=== PATIENT | female | born 1995 | race Caucasian/White ===

== ENCOUNTER → 2024-06-17 | Outpatient (CLI) | payer SELFPAY ==
[2024-06-17 12:12] LABS: Absolute Lymphocyte Count 1.63 X10^3/uL (0.83-4.51); Absolute Neutrophil Count 6.9 X10^3/uL (2.0-7.7); Basophil# 0.04 X10^3/uL; Basophil% 0.4 % (0-1); Eosinophil# 0.15 X10^3/uL; Eosinophils% 1.6 % (0-5); Hematocrit 35.6 % (37-47); Hemoglobin 11.5 g/dL (12.0-15.0); Lymphocyte # 1.63 X10^3/ul (0.83-4.51); Lymphocyte % 17.5 % (19-41); Mean Corp Hgb Conc 32.3 g/dL (32-36); Mean Corpuscular Hgb 29.3 pg (27.0-32.0); Mean Corpuscular Volume 90.8 fL (81-99); Mean Platelet Vol. 10.1 fl (6.2-12.0); Monocyte# 0.63 X10^3/uL; Monocyte% 6.8 % (0-10); NRBC Flagged by Analyzer 0 % (0-5); Neutrophil # 6.85 X10^3/uL (2.7-7.7); Neutrophil % 73.5 % (47-70); Platelet Count 231 K/mm3 (150-450); RBC Distribution Width SD 46.3 fl (35.1-43.9); Red Blood Count 3.92 M/mm3 (4.2-5.4); White Blood Count 9.3 K/mm3 (4.4-11.0)
[2024-06-17 13:45] LABS: HIV - WCH Non-Reactive (Nonreactive); Hepatitis B Surface Antigen Non-Reactive (Nonreactive); Hepatitis C Antibody Non-Reactive (Nonreactive); Rubella IgG Non-Reactive (Nonreactive); Syphilis Antibodies Non-reactive
[2024-06-18 20:07] LABS: Chlamydia By Nucleic Acid AMP Negative (Negative); Gonococcus By Nucleic Acid AMP Negative (Negative)
== END | disposition home or self-care (01) ==
LOC: BWCLAB 11:07
PROVIDERS: Referring Provider Obstetrics & Gynecology; Visit Provider Obstetrics & Gynecology
DX: Z34.00 Encounter for supervision of normal first pregnancy, unspecified trimester (principal)
CPT/HCPCS: 36415; 85025; 86703; 86762; 86780; 86803; 86850; 86900; 86901; 87086; 87340; 87491; 87591; 88175; G0145

== ENCOUNTER → 2024-08-23 | Outpatient (CLI) | payer SELFPAY ==
--- NOTE | 2024-08-23 15:24 | US_ITS ---
PROCEDURE: ultrasound. REASON FOR EXAM: Anatomy scan COMPARISON: None available. FINDINGS Single live intrauterine gestation in transverse lie. The max vertical amniotic fluid pocket is 5.7 cm. heart rate 155 beats per minute. Cervical length is 3.9 cm, closed. The placenta is posterior. No retroplacental fluid collection or gross evidence of placenta previa. No gross anomalies are demonstrated. Biparietal diameter 4.5 cm. Head circumference 17.3 cm. Abdominal circumference 15.5 cm. Femur length 3.3 cm. Estimated weight 351 g +/minus sign 93 g, at the 43rd percentile. Facial features appear intact. There appears to be a four-chamber heart. cord insertion unremarkable. There appears to be a three-vessel cord. Spine and extremities grossly unremarkable. US/OB Anatomy w/ Transvaginal IMPRESSION: Single live intrauterine gestation in transverse lie. Estimated gestational ag e is 20 weeks, 3 days. Estimated date of confinement 01/07/2025. No gross anomalies. Normal-appearing amniotic fluid level. Posterior placenta. Reading Location: [id number]
== END | disposition home or self-care (01) ==
PROVIDERS: Referring Provider Advanced Practice Midwife; Visit Provider Advanced Practice Midwife
DX: Z34.00 Encounter for supervision of normal first pregnancy, unspecified trimester (principal)
CPT/HCPCS: 76805; 76817

== ENCOUNTER → 2024-10-11 | Outpatient (CLI) | payer SELFPAY ==
[2024-10-11 16:17] LABS: Absolute Lymphocyte Count 1.21 X10^3/uL (0.83-4.51); Absolute Neutrophil Count 6.3 X10^3/uL (2.0-7.7); Basophil# 0.02 X10^3/uL; Basophil% 0.2 % (0-1); Eosinophil# 0.06 X10^3/uL; Eosinophils% 0.7 % (0-5); Hematocrit 31.9 % (37-47); Lymphocyte # 1.21 X10^3/ul (0.83-4.51); Lymphocyte % 14.9 % (19-41); Mean Corp Hgb Conc 34.5 g/dL (32-36); Mean Corpuscular Hgb 31.5 pg (27.0-32.0); Mean Corpuscular Volume 91.4 fL (81-99); Mean Platelet Vol. 10.2 fl (6.2-12.0); Monocyte# 0.53 X10^3/uL; Monocyte% 6.5 % (0-10); NRBC Flagged by Analyzer 0 % (0-5); Neutrophil # 6.28 X10^3/uL (2.7-7.7); Neutrophil % 77.3 % (47-70); Platelet Count 210 K/mm3 (150-450); RBC Distribution Width CV 13.3 % (11.6-14.6); RBC Distribution Width SD 44.2 fl (35.1-43.9); Red Blood Count 3.49 M/mm3 (4.2-5.4); White Blood Count 8.1 K/mm3 (4.4-11.0)
[2024-10-11 17:05] LABS: Glucose Challenge Gest 1H 50g 123 mg/dL (70-140); HIV Nonreactive (Nonreactive)
[2024-10-11 17:55] LABS: Syphilis Antibodies Nonreactive (Nonreactive)
== END | disposition home or self-care (01) ==
PROVIDERS: Nurse Practitioner Women's Health; Referring Provider Advanced Practice Midwife; Visit Provider Advanced Practice Midwife
DX: O09.891 Supervision of other high risk pregnancies, first trimester (principal); Z28.39 Other underimmunization status; Z13.1 Encounter for screening for diabetes mellitus; Z3A.00 Weeks of gestation of pregnancy not specified
CPT/HCPCS: 36415; 82950; 85025; 86703; 86780; 86787

== ENCOUNTER → 2024-12-20 | Outpatient (CLI) | payer SELFPAY ==
[2024-12-20 15:36] LABS: ROM Internal Control Test YES-OK TO RESULT pt. (Internal QC); ROM Patient Test Negative (Negative); Record Kit Lot#, ROM+ K3358
== END | disposition home or self-care (01) ==
LOC: LABSPEC 15:07
PROVIDERS: Referring Provider Registered Nurse; Visit Provider Registered Nurse
DX: O26.899 Other specified pregnancy related conditions, unspecified trimester (principal); N89.8 Other specified noninflammatory disorders of vagina; Z3A.00 Weeks of gestation of pregnancy not specified
CPT/HCPCS: 84112; 87081

== ENCOUNTER 2024-12-29 17:58 | Inpatient (IN) | payer SELFPAY ==
[2024-12-29] VITALS (13 sets, daily range): BP systolic 102–129; BP diastolic 64–83; PULSE 56–122; RESP 15–18; TEMP 36.3–37.2; O2SAT 97–100; BMI 27.9
--- OUTSIDE RECORDS SUMMARY | 2024-12-29 17:37 | XMS RPT_ITS | CCD ---
Author Organization [facility]ini[facility] Care Team Providers Care Budget Analyst Name Role Phone Kya Stapleton CNM Attending Provider Dr. Evelia Catalan MD Attending Provider [phone] Kya Stapleton CNM Referring Provider [phone] Care Physician, No Primary Primary Care Provider Unavailable Care Physician, No Primary Referring Provider Un available Sheryl Hook Attending Provider [phone] Kya Stapleton CNM Attending Provider [phone] Dr. Evelia Catalan MD Attending Provider [phone] Dr. Ellie Rodríguez DO Attending Provider Jill Sethi CNM Attending Provider [phone] Kya Stapleton CNM Attending Provider [phone] Care Physician, No Primary Primary Care Provider Unavailable Kya Stapleton CNM Referring Provider Jill Sethi CNM Referring Provider Care Physician, No Primary Primary Care Unava ilable Sheryl Kern NP Attending Unavailable Care Physician, No Primary Referring Unava ilable Jill Sethi Attending Unavailable Jill Sethi Referring Unavailable Care Physician, No Primary Primary Care Unava ilable Ellie Rodríguez Attending UnavailEllie Iyer Referring Unavailabl e Care Physician, No Primary Primary Care Unava ilable yKa Stapleton Attending Unavailable Kya Stapleton Referring Unavailable Care Physician, No Primary Primary Care Unava ilable Kya Stapleton Referring Unavailable Kya Stapleton Attending Unavailable Ellie Rodríguez Attending Unavailabl e Care Physician, No Primary Referring Unava ilable Care Physician, No Primary Primary Care Unava ilable Kya Stapleton Attending Unavailable Care Physician, No Primary Referring Unava ilable Care Physician, No Primary Primary Care Unava ilable Jill Sethi Attending Unavailable Care Physician, No Primary Referring Unava ilable Care Physician, No Primary Primary Care Unava ilable Sheryl Kern NP Attending Unavailable Care Physician, No Primary Referring Unava ilable Care Physician, No Primary Primary Care Unava ilable Ellie Rodríguez Att[facility]leton Attending Unavailable Evelia Catalan Attending Unavailable Care Physician, No Primary Referring Unava ilable Care Physician, No Primary Primary Care Unava ilable Evelia Catalan Attending Unavailable Care Physician, No Primary Primary Care Unava ilable Kya Stapleton Attending Unavailable Care Physician, No Primary Referring Unava ilable Medications Current Medications Medication Drug Class(es) Dates Sig (Normalized) Sig (Original) Mv-Mins 74-Ojve-Eczce No.1-Dha (Pnv-Worthington) 28-1-300 mg capsule (4 sources) Start: 06-07-2024 Mv-Mins 38-Jkrh-Avzsc No.1-Dha (Pnv-[place]) 28-1-300 mg capsule Active NMA PO June 07, 2024 1:00am Problems Active Problems Problem Classification Problem Date Documented Date Episodic/Chronic Other complications of (20 sources) Rubella non-immune; Translations: [Supervision of other high risk pregnancies, unspecified trimester] 10-11-2024 Episodic Comment on above: offer mmr pp Other complications of (14 sources) Varicella non-immune; Translations: [Supervision of other high risk pregnancies, unspecified trimester] 10-14-2024 Episodic Comment on above: Lab indicates immuni ty Other complications of (1 source) Other specified related conditions, unspecified trimester; Translations: [Other specified related conditions, unspecified trimester] Onset: 12-26-2024 Episodic Other complications of (1 source) Supervision of other high risk pregnancies, unspecified trimester; Translations: [Supervision of other high risk pregnancies, unspecified trimester] Onset: 12-20-2024 Episodic Other and delivery including normal (20 sources) Normal ; Translations: [Encounter for supervision of normal first , unspecified trimester] Onset: 06-17-2024 10-11-2024 Episodic Comment on above: PRR, , GAMAL , Jewish declined NIPT & Prince ier testing, afp declined. normal anatomy PRR, , GAMAL , boy Jewish gbs neg. declined NI PT & Carrier testing, afp declined. normal anatomy Residual codes; unclassified (6 sources) Infertile 07-22-2024 Episodic Residual codes; unclassified (1 source) 37 weeks gestation of ; Translations: [37 weeks gestation of ] Onset: 12-20-2024 Episodic Residual codes; unclassified (1 source) 35 weeks gestation of ; Translations: [35 weeks gestation of ] Onset: 12-06-2024 Episodic Residual codes; unclassified (1 source) 31 weeks gestation of ; Translations: [31 weeks gestation of ] Onset: 11-11-2024 Episodic Unclassified (1 source) Other underimmunization status; Translations: [Other underimmunization status] Onset: 12-20-2024 Past or Other Problems Problem Classification Problem Date Documented Da te Episodic/Chronic Residual codes; unclassified (1 source) 23 weeks gestation of ; Translations: [23 weeks gestation of ] Onset: 09-13-2024 Episodic Residual codes; unclassified (1 source) 19 weeks gestation of ; Translations: [19 weeks gestation of ] Onset: 08-16-2024 Episodic Residual codes; unclassified (1 source) 15 weeks gestation of ; Translations: [15 weeks gestation of ] Onset: 07-22-2024 Episodic Results Test Name Value Interpretation Reference Range Facility Setter Machine Office Visit Reporton 12-26-2024 Setter Machine Office Visit Report [facility] [address], [address] [place] [address] OFFICE VISIT Date of Service: 12/26/24 MR#: [id number] Acct: [id number] Name: CALLUM CABALLERO Rep #: [id number] : 1995 Provider: AJIT guerra Age/Sex: 29/F [place] [facility] [place]: [place] Intake Vital Signs 07/22/24 08:44 12/20/24 13:52 12/26/24 12:50 Height 5 ft 6 in 5 ft 6 in 5 ft 6 in Weight: 175 lb 4 oz BMI 28.3 BP 120/78 Intake Visit Reasons: 38 WK OB Chief Complaint: 38 Week OB Detonator Maker Required: No Is patient in pain?: No Allergies No Known Allergies Allergy (Verified 12/26/24 12:50) Medications ???Medication ???Instructions ???Recorded ???Confirmed ???Type multivit-min no.71-iron fum 28 cap PO 06/07/24 12/26/24 History mg-folate no.1 1 mg-dha 300 mg capsule (PNV-Worthing[place]) Last Menstrual Period: 04/02/24 Zika: Zika virus screening: Negative : No PFSH PFSH Family History Aunt Cancer Maternal- not sure what kind Grandfather Cancer Paternal- prostate Colon cancer Paternal Uncle Diabetes Paternal Mother Family history of recurrent miscarriage Social History adopted: No household members: spouse 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 history of recent travel: Yes ( -April) out of state: No out of country: Yes sexually active: Yes Smoking Status: Never smoker alcohol intake: current alcohol intake frequency: holidays/special occasions only details: Not while substance use type: does not use well-balanced diet: daily or most days caffeine: No eating out: rarely or never during the past year weight has: remained stable what type of physical activity do you participate in: none jacob/confucianism: Jewish seatbelt use: always do you feel safe at home: Yes 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 OB Visit GAMAL Calculator Estimated Delivery Date Method Current WG Current Estimate 01/07/25 LMP (Certain) 38w 2d Other Estimates 01/06/25 Ultrasound #1 38w 3d Expected Delivery Route/Plan Labor Preferences- CB/BF classes: encouraged labor support person: Jewish labor intervention preferences: [] pain management options preferred: limited cut cord/dad catch: maybe : yes PP control planned: discussed discussed possible routes of delivery and associated risks: [] special requests: [] Specific Issue/Plans Covid status: [] Flu vaccine: [] Tdap vaccine: decline Rhogam: na LARC form signed: yes Problem list reviewed and updated with the most current plan of care details and appropriate orders placed. Relevant counseling for the gestational age provided. Continue routine care and follow up unless otherwise noted in visit notes/problem list details Initial Weight: 145 lb Date -???-???-???-???-???- ???-???-???-???-???-? ??-???- EGA Weight BP Urine Prot -???-???-???-???-???- ???-???-???-???-???-? ??-???- Glucose FHR FuHt Pres Dilation -???-???-???-???-???- ???-???-???-???-???-? ??-???- Effaced St Visit Note 06/17/24 -???-???-???-???-???- ???-???-???-???-???-? ??-???- 10w 6d 152 lb 8 oz (+7 lb 8 oz) 125/65 -???-???-???-???-???- ???-???-???-???-???-? ??-???- 168 -???-???-???-???-???- ???-???-???-???-???-? ??-???- JV- CRL maurice ures just under 4cm and consistent with LMP. They are undecided about NIPT but will do first trimester labs today. 07/22/24 -???-???-???-???-???- ???-???-???-???-???-? ??-???- 15w 6d 156 lb (+11 lb) 108/57 Negative -???-???-???-???-???- ???-???-???-???-???-? ??-???- Negative 160 -???-???-???-???-???- ???-???-???-???-???-? ??-???- KW-no vb/craft recruiter mping. no concerns US ordered. 08/16/24 -???-???-???-???-???- ???-???-???-???-???-? ??-???- 19w 3d 158 lb 4 oz (+13 lb 4 oz) 107/64 Negative -???-???-???-???-???- ???-???-???-???-???-? ??-???- Negative 145 -???-???-???-???-???- ???-???-???-???-???-? ??-???- SM- n ovb cr maping aswered questions about anatomy scan and is fine with proceeding. 09/13/24 -???-???-???-???-???- ???-???-???-???-???-? ??-???- 23w 3d 166 lb (+21 lb) 114/69 Negative -???-???-???-???-???- ???-???-???-???-???-? ??-???- Negative 140 -???-???-???-???-???- ???-???-???-???-???-? ??-???- KW- no vb/cr amping. good fm. CBE classes discussed. 28 w (more content not included)... Normal [facility] Rule out Beta Strep (Grp. B) on 12-22-2024 YAMINI Group B Beta Streptococcus is not isolated. Normal [facility] Comment on above: Performed By: #### L 100.0100, L3890.6100, L3890.6005, L509.8000, L509.4005, BTS, L3890.6300 #### [facility] [address] [place], [address] (ROM) Rupture Of Membraneson 12-20-2024 ROM Negative Normal Negative [facility] Comment on above: Result Comment: Amni otic fluid not present indicates No Rupture of Membranes at time of specimen collection. Performed By: #### L 100.0100, L3890.6100, L3890.6005, L509.8000, L509.4005, BTS, L3890.6300 #### [facility] [address] [place], [place], [address] Laboratory - Chemistry and C hemistry - challengeOrdered By: Jill Sethi on 12-20-2024 Glucose Ql (U) Negative [facility] - UrinalysisOrder ed By: Jill Sethi on 12-20-2024 Protein Ql (U) Negative [facility] Setter Machine Office Visit Reporton 12-20-2024 Setter Machine Office Visit Report [facility] [address], [address] [place] [address] OFFICE VISIT Date of Service: 12/20/24 MR#: [id number] Acct: [id number] Name: CALLUM CABALLERO Rep #: [id number] : 1995 Provider: DYLON tellez Age/Sex: 29/F [place] [facility] [place]: Signed Intake Vital Signs 07/22/24 08:44 12/06/24 14:37 12/20/24 13:52 Height 5 ft 6 in 5 ft 6 in 5 ft 6 in Weight: 176 lb 6 oz BMI 28.4 BP 116/74 Intake Visit Reasons: 37 WK OB Detonator Maker Required: No Is patient in pain?: No Allergies No Known Allergies Allergy (Verified 12/20/24 13:55) Medications ???Medication ???Instructions ???Recorded ???Confirmed ???Type multivit-min no.71-iron fum 28 cap PO 06/07/24 12/20/24 History mg-folate no.1 1 mg-dha 300 mg capsule (PNV-Worthington) Last Menstrual Period: 04/02/24 Zika: Zika virus screening: Negative : No PFSH PFSH Family History Aunt Cancer Maternal- not sure what kind Grandfather Cancer Paternal- prostate Colon cancer Paternal Uncle Diabetes Paternal Mother Family history of recurrent miscarriage Social History adopted: No household members: spouse 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 history of recent travel: Yes ( -April) out of state: No out of country: Yes sexually active: Yes Smoking Status: Never smoker alcohol intake: current alcohol intake frequency: holidays/special occasions only details: Not while substance use type: does not use well-balanced diet: daily or most days caffeine: No eating out: rarely or never during the past year weight has: remained stable what type of physical activity do you participate in: none jacob/confucianism: Jewish seatbelt use: always do you feel safe at home: Yes 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 OB Visit GAMAL Calculator Estimated Delivery Date Method Current WG Current Estimate 01/07/25 LMP (Certain) 37w 3d Other Estimates 01/06/25 Ultrasound #1 37w 4d Expected Delivery Route/Plan Labor Preferences- CB/BF classes: encouraged labor support person: Jewish labor intervention preferences: [] pain management options preferred: limited cut cord/dad catch: maybe : yes PP control planned: discussed discussed possible routes of delivery and associated risks: [] special requests: [] Specific Issue/Plans Covid status: [] Flu vaccine: [] Tdap vaccine: decline Rhogam: na LARC form signed: yes Problem list reviewed and updated with the most current plan of care details and appropriate orders placed. Relevant counseling for the gestational age provided. Continue routine care and follow up unless otherwise noted in visit notes/problem list details Initial Weight: 145 lb Date -???-???-???-???-???- ???-???-???-???-???-? ??-???- EGA Weight BP Urine Prot -???-???-???-???-???- ???-???-???-???-???-? ??-???- Glucose FHR FuHt Pres Dilation -???-???-???-???-???- ???-???-???-???-???-? ??-???- Effaced St Visit Note 06/17/24 -???-???-???-???-???- ???-???-???-???-???-? ??-???- 10w 6d 152 lb 8 oz (+7 lb 8 oz) 125/65 -???-???-???-???-???- ???-???-???-???-???-? ??-???- 168 -???-???-???-???-???- ???-???-???-???-???-? ??-???- JV- CRL maurice ures just under 4cm and consistent with LMP. They are undecided about NIPT but will do first trimester labs today. 07/22/24 -???-???-???-???-???- ???-???-???-???-???-? ??-???- 15w 6d 156 lb (+11 lb) 108/57 Negative -???-???-???-???-???- ???-???-???-???-???-? ??-???- Negative 160 -???-???-???-???-???- ???-???-???-???-???-? ??-???- KW-no vb/craft recruiter mping. no concerns US ordered. 08/16/24 -???-???-???-???-???- ???-???-???-???-???-? ??-???- 19w 3d 158 lb 4 oz (+13 lb 4 oz) 107/64 Negative -???-???-???-???-???- ???-???-???-???-???-? ??-???- Negative 145 -???-???-???-???-???- ???-???-???-???-???-? ??-???- SM- n ovb cr maping aswered questions about anatomy scan and is fine with proceeding. 09/13/24 -???-???-???-???-???- ???-???-???-???-???-? ??-???- 23w 3d 166 lb (+21 lb) 114/69 Negative -???-???-???-???-???- ???-???-???-???-???-? ??-???- Negative 140 -???-???-???-???-???- ???-???-???-???-???-? ??-???- KW- no vb/cr amping. good fm. CBE classes discussed. 28 week labs discussed. 10/11/24 (more content not included)... Normal [facility] Screening beta-hemolytic Str eptococcus cultureOrdered By: Jill Sethi on 12-20-2024 Beta-hemolytic Streptococcus culture Group B Beta Streptococcus is not isolated. [facility] - Chemistry and C hemistry - challengeOrdered By: Kya Stapleton on 12-06-2024 Glucose Ql (U) Negative [facility] - UrinalysisOrder ed By: Kya Stapleton on 12-06-2024 Protein Ql (U) Negative [facility] Setter Machine Office Visit Reporton 12-06-2024 Setter Machine Office Visit Report [facility] [address], [address] [place] [address] OFFICE VISIT Date of Service: 12/06/24 MR#: [id number] Acct: [id number] Name: CALLUM CABALLERO Rep #: [id number] : 1995 Provider: DYLON Parker ams Age/Sex: 29/F [place] [facility] [place]: Signed Intake Vital Signs 07/22/24 08:44 11/11/24 10:49 12/06/24 14:37 Height 5 ft 6 in 5 ft 6 in 5 ft 6 in Weight: 173 lb 4 oz BMI 27.9 BP 127/82 H Intake Visit Reasons: 35 WK OB Chief Complaint: 35wk OB Detonator Maker Required: No Is patient in pain?: No Allergies No Known Allergies Allergy (Verified 12/06/24 14:35) Medications ???Medication ???Instructions ???Recorded ???Confirmed ???Type multivit-min no.71-iron fum 28 cap PO 06/07/24 12/06/24 History mg-folate no.1 1 mg-dha 300 mg capsule (PNV-Worthington) Last Menstrual Period: 04/02/24 : No PFSH PFSH Family History Aunt Cancer Maternal- not sure what kind Grandfather Cancer Paternal- prostate Colon cancer Paternal Uncle Diabetes Paternal Mother Family history of recurrent miscarriage Social History adopted: No household members: spouse 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 history of recent travel: Yes ( -April) out of state: No out of country: Yes sexually active: Yes Smoking Status: Never smoker alcohol intake: current alcohol intake frequency: holidays/special occasions only details: Not while substance use type: does not use well-balanced diet: daily or most days caffeine: No eating out: rarely or never during the past year weight has: remained stable what type of physical activity do you participate in: none jacob/confucianism: Jewish seatbelt use: always do you feel safe at home: Yes 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 OB Visit GAMAL Calculator Estimated Delivery Date Method Current WG Current Estimate 01/07/25 LMP (Certain) 35w 3d Other Estimates 01/06/25 Ultrasound #1 35w 4d Expected Delivery Route/Plan Labor Preferences- CB/BF classes: encouraged labor support person: Jewish labor intervention preferences: [] pain management options preferred: limited cut cord/dad catch: maybe : yes PP control planned: discussed discussed possible routes of delivery and associated risks: [] special requests: [] Specific Issue/Plans Covid status: [] Flu vaccine: [] Tdap vaccine: decline Rhogam: na LARC form signed: yes Problem list reviewed and updated with the most current plan of care details and appropriate orders placed. Relevant counseling for the gestational age provided. Continue routine care and follow up unless otherwise noted in visit notes/problem list details Initial Weight: 145 lb Date -???-???-???-???-???- ???-???-???-???-???-? ??-???- EGA Weight BP Urine Prot -???-???-???-???-???- ???-???-???-???-???-? ??-???- Glucose FHR FuHt Pres Dilation -???-???-???-???-???- ???-???-???-???-???-? ??-???- Effaced St Visit Note 06/17/24 -???-???-???-???-???- ???-???-???-???-???-? ??-???- 10w 6d 152 lb 8 oz (+7 lb 8 oz) 125/65 -???-???-???-???-???- ???-???-???-???-???-? ??-???- 168 -???-???-???-???-???- ???-???-???-???-???-? ??-???- JV- CRL maurice ures just under 4cm and consistent with LMP. They are undecided about NIPT but will do first trimester labs today. 07/22/24 -???-???-???-???-???- ???-???-???-???-???-? ??-???- 15w 6d 156 lb (+11 lb) 108/57 Negative -???-???-???-???-???- ???-???-???-???-???-? ??-???- Negative 160 -???-???-???-???-???- ???-???-???-???-???-? ??-???- KW-no vb/craft recruiter mping. no concerns US ordered. 08/16/24 -???-???-???-???-???- ???-???-???-???-???-? ??-???- 19w 3d 158 lb 4 oz (+13 lb 4 oz) 107/64 Negative -???-???-???-???-???- ???-???-???-???-???-? ??-???- Negative 145 -???-???-???-???-???- ???-???-???-???-???-? ??-???- SM- n ovb cr maping aswered questions about anatomy scan and is fine with proceeding. 09/13/24 -???-???-???-???-???- ???-???-???-???-???-? ??-???- 23w 3d 166 lb (+21 lb) 114/69 Negative -???-???-???-???-???- ???-???-???-???-???-? ??-???- Negative 140 -???-???-???-???-???- ???-???-???-???-???-? ??-???- KW- no vb/cr amping. good fm. CBE classes discussed. 28 week labs discussed. 10/11/24 -???-???-???-???-? (more content not included)... Normal [facility] - Chemistry and C hemistry - challengeOrdered By: Ellie Rader on 11-11-2024 Glucose Ql (U) Negative [facility] - UrinalysisOrder ed By: Ellie Rader on 11-11-2024 Protein Ql (U) Negative [facility] Setter Machine Office Visit Reporton 11-11-2024 Setter Machine Office Visit Report [facility], [address] [place] [address] OFFICE VISIT Date of Service: 11/11/24 MR#: [id number] Acct: [id number] Name: ADA,CALLUM C Rep #: [id number] : 1995 Provider: Dr. Ellie Kwan DO Age/Sex: 29/F [place] [facility] [place]: Signed Intake Vital Signs 07/22/24 08:44 09/13/24 13:49 10/25/24 15:02 11/11/24 10:49 Height 5 ft 6 in 5 ft 6 in 5 ft 6 in 5 ft 6 in Weight: 168 lb 8 oz BMI 27.1 BP 105/69 Intake Visit Reasons: 31 WK OB Detonator Maker Required: No Is patient in pain?: No Allergies No Known Allergies Allergy (Verified 11/11/24 10:50) Medications ???Medication ???Instructions ???Recorded ???Confirmed ???Type multivit-min no.71-iron fum 28 cap PO 06/07/24 11/11/24 History mg-folate no.1 1 mg-dha 300 mg capsule (PNV-W[place]thing[place]) Last Menstrual Period: 04/02/24 Zika: Zika virus screening: Negative : No PFSH PFSH Family History Aunt Cancer Maternal- not sure what kind Grandfather Cancer Paternal- prostate Colon cancer Paternal Uncle Diabetes Paternal Mother Family history of recurrent miscarriage Social History adopted: No household members: spouse 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 history of recent travel: Yes ( -April) out of state: No out of country: Yes sexually active: Yes Smoking Status: Never smoker alcohol intake: current alcohol intake frequency: holidays/special occasions only details: Not while substance use type: does not use well-balanced diet: daily or most days caffeine: No eating out: rarely or never during the past year weight has: remained stable what type of physical activity do you participate in: none jacob/confucianism: Jewish seatbelt use: always do you feel safe at home: Yes 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 OB Visit GAMAL Calculator Estimated Delivery Date Method Current WG Current Estimate 01/07/25 LMP (Certain) 31w 6d Other Estimates 01/06/25 Ultrasound #1 32w 0d Expected Delivery Route/Plan Labor Preferences- CB/BF classes: encouraged labor support person: Jewish labor intervention preferences: [] pain management options preferred: limited cut cord/dad catch: maybe : yes PP control planned: discussed discussed possible routes of delivery and associated risks: [] special requests: [] Specific Issue/Plans Covid status: [] Flu vaccine: [] Tdap vaccine: decline Rhogam: na LARC form signed: yes Problem list reviewed and updated with the most current plan of care details and appropriate orders placed. Relevant counseling for the gestational age provided. Continue routine care and follow up unless otherwise noted in visit notes/problem list details Initial Weight: 145 lb Date -???-???-???-???-???- ???-???-???-???-???-? ??-???- EGA Weight BP Urine Prot -???-???-???-???-???- ???-???-???-???-???-? ??-???- Glucose FHR FuHt Pres Dilation -???-???-???-???-???- ???-???-???-???-???-? ??-???- Effaced St Visit Note 06/17/24 -???-???-???-???-???- ???-???-???-???-???-? ??-???- 10w 6d 152 lb 8 oz (+7 lb 8 oz) 125/65 -???-???-???-???-???- ???-???-???-???-???-? ??-???- 168 -???-???-???-???-???- ???-???-???-???-???-? ??-???- JV- CRL maurice ures just under 4cm and consistent with LMP. They are undecided about NIPT but will do first trimester labs today. 07/22/24 -???-???-???-???-???- ???-???-???-???-???-? ??-???- 15w 6d 156 lb (+11 lb) 108/57 Negative -???-???-???-???-???- ???-???-???-???-???-? ??-???- Negative 160 -???-???-???-???-???- ???-???-???-???-???-? ??-???- KW-no vb/craft recruiter mping. no concerns US ordered. 08/16/24 -???-???-???-???-???- ???-???-???-???-???-? ??-???- 19w 3d 158 lb 4 oz (+13 lb 4 oz) 107/64 Negative -???-???-???-???-???- ???-???-???-???-???-? ??-???- Negative 145 -???-???-???-???-???- ???-???-???-???-???-? ??-???- SM- n ovb cr maping aswered questions about anatomy scan and is fine with proceeding. 09/13/24 -???-???-???-???-???- ???-???-???-???-???-? ??-???- 23w 3d 166 lb (+21 lb) 114/69 Negative -???-???-???-???-???- ???-???-???-???-???-? ??-???- Negative 140 -???-???-???-???-???- ???-???-???-???-???-? ??-???- KW- no vb/cr amping. good fm. CBE classes discussed. (more content not included)... Normal [facility] - Chemistry and C hemistry - challengeOrdered By: Eveliadebra Catalan on 10-25-2024 Glucose Ql (U) Negative [facility] - UrinalysisOrder ed By: Evelia Catalan on 10-25-2024 Protein Ql (U) Negative [facility] Setter Machine Office Visit Reporton 10-25-2024 Setter Machine Office Visit Report [facility] [address], [address] [place] [address] OFFICE VISIT Date of Service: 10/25/24 MR#: [id number] Acct: [id number] Name: CALLUM CABALLERO Rep #: [id number] : 1995 Provider: Dr. Evelia ramirez MD Age/Sex: 29/F [place] [facility] [place]: Signed Intake Vital Signs 07/22/24 08:44 10/11/24 13:11 10/25/24 15:02 Height 5 ft 6 in 5 ft 6 in 5 ft 6 in Weight: 167 lb 4 oz BMI 26.9 BP 117/78 Intake Visit Reasons: 29 WK OB Detonator Maker Required: No Is patient in pain?: No Feel stressed/tense/nervou s/anxious/difficulty sleeping: not at all Allergies No Known Allergies Allergy (Verified 10/25/24 15:03) Medications ???Medication ???Instructions ???Recorded ???Confirmed ???Type multivit-min no.71-iron fum 28 cap PO 06/07/24 10/25/24 History mg-folate no.1 1 mg-dha 300 mg capsule (PNV-[place]) Last Menstrual Period: 04/02/24 Zika: Zika virus screening: Negative : No PFSH PFSH Family History Aunt Cancer Maternal- not sure what kind Grandfather Cancer Paternal- prostate Colon cancer Paternal Uncle Diabetes Paternal Mother Family history of recurrent miscarriage Social History adopted: No household members: spouse 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 history of recent travel: Yes ( -April) out of state: No out of country: Yes sexually active: Yes Smoking Status: Never smoker alcohol intake: current alcohol intake frequency: holidays/special occasions only details: Not while substance use type: does not use well-balanced diet: daily or most days caffeine: No eating out: rarely or never during the past year weight has: remained stable what type of physical activity do you participate in: none jacob/confucianism: Jewish seatbelt use: always do you feel safe at home: Yes 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 OB Visit GAMAL Calculator Estimated Delivery Date Method Current WG Current Estimate 01/07/25 LMP (Certain) 29w 3d Other Estimates 01/06/25 Ultrasound #1 29w 4d Expected Delivery Route/Plan Labor Preferences- CB/BF classes: encouraged labor support person: Jewish labor intervention preferences: [] pain management options preferred: limited cut cord/dad catch: maybe : yes PP control planned: discussed discussed possible routes of delivery and associated risks: [] special requests: [] Specific Issue/Plans Covid status: [] Flu vaccine: [] Tdap vaccine: decline Rhogam: na LARC form signed: yes Problem list reviewed and updated with the most current plan of care details and appropriate orders placed. Relevant counseling for the gestational age provided. Continue routine care and follow up unless otherwise noted in visit notes/problem list details Initial Weight: Not Recorded Date -???-???-???-???-???- ???-???-???-???-???-? ??-???- EGA Weight BP Urine Prot -???-???-???-???-???- ???-???-???-???-???-? ??-???- Glucose FHR FuHt Pres Dilation -???-???-???-???-???- ???-???-???-???-???-? ??-???- Effaced St Visit Note 06/17/24 -???-???-???-???-???- ???-???-???-???-???-? ??-???- 10w 6d 152 lb 8 oz 125/65 -???-???-???-???-???- ???-???-???-???-???-? ??-???- 168 -???-???-???-???-???- ???-???-???-???-???-? ??-???- JV- CRL maurice ures just under 4cm and consistent with LMP. They are undecided about NIPT but will do first trimester labs today. 07/22/24 -???-???-???-???-???- ???-???-???-???-???-? ??-???- 15w 6d 156 lb 108/57 Negative -???-???-???-???-???- ???-???-???-???-???-? ??-???- Negative 160 -???-???-???-???-???- ???-???-???-???-???-? ??-???- KW-no vb/craft recruiter mping. no concerns US ordered. 08/16/24 -???-???-???-???-???- ???-???-???-???-???-? ??-???- 19w 3d 158 lb 4 oz 107/64 Negative -???-???-???-???-???- ???-???-???-???-???-? ??-???- Negative 145 -???-???-???-???-???- ???-???-???-???-???-? ??-???- SM- n ovb cr maping aswered questions about anatomy scan and is fine with proceeding. 09/13/24 -???-???-???-???-???- ???-???-???-???-???-? ??-???- 23w 3d 166 lb 114/69 Negative -???-???-???-???-???- ???-???-???-???-???-? ??-???- Negative 140 -???-???-???-???-???- ???-???-???-???-???-? ??-???- KW- no vb/cr amping. good fm. CBE classes discussed. 28 week (more content not included)... Normal [facility] V-Zoster IgG (Immunity)on V ZOSTER IgG Normal [facility] Comment on above: Result Comment: RESU LT: REACTIVE Please note reference interval change A Reactive result is considered evidence of immunity to VZV. Reactive indicates that VZV IgG was detected consistent with previous infection and/or vaccination. A Non Reactive result indicates that VZV IgG was not detected suggesting that immunity has not been acquired. Performed at: [facility] [address] [place] [id number] Operations Trainer: Demian Carter PhD, Phone: [phone] Performed By: #### L 3400.0000 #### [facility] [address] [place], [address] Absolute lymphocyte countOrd ered By: Kya Stapleton on 10-11-2024 Lymphocytes Auto (Unsp spec) [#/Vol] 1.21 10*3/uL 0.83-4.51 [facility] Absolute neutrophil countOrd ered By: Kya Stapleton on 10-11-2024 Neutrophils (Bld) [#/Vol] 6.3 10*3/uL 2.0-7.7 [facility] Automated lymphocyte count a s percentage of total leukocytesOrdered By: Kya Stapleton on 10-11-2024 Lymphocytes/100 WBC Auto (Unsp spec) 14.9 % Low 19-41 [facility] Basophil percentageOrdered B y: Kya Stapleton on 10-11-2024 Basophils/100 WBC (Bld) 0.2 % 0-1 [facility] CBC W/Diff, Automatedon 09-15 Absolute Lymph 1.21 X10 3/uL Normal 0.83-4.51 [facility] Comment on above: Performed By: #### L 100.0100, L509.8002, L3890.6006, L501.0250 #### [facility] [address] [place], [address] Absolute Neut 6.3 X10 3/uL Normal 2.0-7.7 [facility] Comment on above: Performed By: #### L 100.0100, L509.8002, L3890.6006, L501.0250 #### [facility] [address] [place], [address] Basophils/100 WBC (Bld) 0.2 % Normal 0-1 [facility] Comment on above: Performed By: #### L 100.0100, L509.8002, L3890.6006, L501.0250 #### [facility] [address] [place], [address] Eosinophils/100 WBC (Bld) 0.7 % Normal 0-5 [facility] Comment on above: Performed By: #### L 100.0100, L509.8002, L3890.6006, L501.0250 #### [facility] [address] [place], [address] Erythrocyte distribution width (RBC) [Ratio] 13.3 % Normal 11.6-14.6 [facility] Comment on above: Performed By: #### L 100.0100, L509.8002, L3890.6006, L501.0250 #### [facility] [address] [place], [address] Hematocrit (Bld) [Volume fraction] 31.9 % Low 37-47 [facility] Comment on above: Performed By: #### L 100.0100, L509.8002, L3890.6006, L501.0250 #### [facility] [address] [place], [address] Hemoglobin (Bld) [Mass/Vol] 11.0 g/dL Low 12.0-15.0 [facility] Comment on above: Performed By: #### L 100.0100, L509.8002, L3890.6006, L501.0250 #### [facility] [address] [place], [address] IG% 0.400 Normal 0.0-0.9 [facility] Comment on above: Result Comment: IG% - Immature Granulocytes (promyelocytes, myelocytes and metamyelocytes) > 1% indicates that a LEFT SHIFT is Present. Performed By: #### L 100.0100, L509.8002, L3890.6006, L501.0250 #### [facility] [address] [place], [address] Lymphocytes/100 WBC (Bld) 14.9 % Low 19-41 [facility] Comment on above: Performed By: #### L 100.0100, L509.8002, L3890.6006, L501.0250 #### [facility] [address] [place], [address] MCH (RBC) [Entitic mass] 31.5 pg Normal 27.0-32.0 [facility] Comment on above: Performed By: #### L 100.0100, L509.8002, L3890.6006, L501.0250 #### [facility] [address] [place], [address] MCHC (RBC) [Mass/Vol] 34.5 g/dL Normal 32-36 [facility] Comment on above: Performed By: #### L 100.0100, L509.8002, L3890.6006, L501.0250 #### [facility] [address] [place], [address] MCV (RBC) [Entitic vol] 91.4 fL Normal 81-99 [facility] Comment on above: Performed By: #### L 100.0100, L509.8002, L3890.6006, L501.0250 #### [facility] [address] [place], [address] Monocytes/100 WBC (Bld) 6.5 % Normal 0-10 [facility] Comment on above: Performed By: #### L 100.0100, L509.8002, L3890.6006, L501.0250 #### [facility] [address] [place], [address] Neutrophils/100 WBC (Bld) 77.3 % High 47-70 [facility] Comment on above: Performed By: #### L 100.0100, L509.8002, L3890.6006, L501.0250 #### [facility] [address] [place], [address] Nucleated RBC (Bld) [#/Vol] 0 10*3/uL Normal 0-5 [facility] Comment on above: Performed By: #### L 100.0100, L509.8002, L3890.6006, L501.0250 #### [facility] [address] [place], [address] Platelet mean volume (Bld) [Entitic vol] 10.2 fL Normal 6.2-12.0 [facility] Comment on above: Performed By: #### L 100.0100, L509.8002, L3890.6006, L501.0250 #### [facility] [address] [place], [address] Platelets (Bld) [#/Vol] 210 10*3/uL Normal 150-450 [facility] Comment on above: Performed By: #### L 100.0100, L509.8002, L3890.6006, L501.0250 #### [facility] [address] [place], [address] RBC (Bld) [#/Vol] 3.49 10*6/uL Low 4.2-5.4 [facility] Comment on above: Performed By: #### L 100.0100, L509.8002, L3890.6006, L501.0250 #### [facility] [address] [place], [address] RDW SD 44.2 fl High 35.1-43.9 [facility] Comment on above: Performed By: #### L 100.0100, L509.8002, L3890.6006, L501.0250 #### [facility] [address] [place], [address] WBC (Bld) [#/Vol] 8.1 10*3/uL Normal 4.4-11.0 [facility] Comment on above: Performed By: #### L 100.0100, L509.8002, L3890.6006, L501.0250 #### [facility] [address] [place], [place], [address] Eosinophil percentageOrdered By: Kya Stapleton on 10-11-2024 Eosinophils/100 WBC (Bld) 0.7 % 0-5 [facility] Erythrocyte distribution wid th (RBC) [Ratio]Ordered By: Kya Stapleton on 10-11-2024 Erythrocyte distribution width (RBC) [Entitic vol] 44.2 fL High 35.1-43.9 [facility] Erythrocyte distribution wid th ratioOrdered By: Kya Stapleton on 10-11-2024 Erythrocyte distribution width (RBC) [Ratio] 13.3 % 11.6-14.6 [facility] Erythrocyte distribution wid th standard deviationOrdered By: Kya Stapleton on 10-11-2024 Erythrocyte distribution width (RBC) [Ratio] 44.2 fl High 35.1-43.9 [facility] Glucose Challenge Gest 1H 50 pedro 10-11-2024 GLU GEST 50g 1H 123 mg/dL Normal 70-140 [facility] Comment on above: Performed By: #### L 100.0100, L509.8002, L3890.6006, L501.0250 #### [facility] [address] [place], [address] Glucose measurement at 2 lula rs post-dose gestational glucose tolerance testOrdered By: Kya Stapleton on 10-11-2024 Glucose [Mass/Vol] 123 mg/dL 70-140 [facility] Hematocrit Auto (Bld) [Volum e fraction]Ordered By: Kya Stapleton on 10-11-2024 Hematocrit (Bld) [Volume fraction] 31.9 % Low 37-47 [facility] Hemoglobin measurementOrdere d By: yKa Stapleton on 10-11-2024 Hemoglobin (Bld) [Mass/Vol] 11.0 g/dL Low 12.0-15.0 [facility] Immature granulocytes/100 WB C Auto (Bld)Ordered By: Kya Stapleton on 10-11-2024 Immature granulocytes/100 WBC (Bld) 0.400 % 0.0-0.9 [facility] Comment on above: IG% - Immature Granu locytes (promyelocytes, myelocytes and metamyelocytes) > 1% indicates that a LEFT SHIFT is Present. L3890.6006on 10-11-2024 HIV Non-Reactive Normal Nonreactive [facility] Comment on above: Result Comment: Non- Reactive Reactive Repeatedly reactive samples must be confirmed according to CDC recommended confirmatory algorithms. The subresults for either HIVAG or AHIV can be used as an aid in the selection of the confirmation algorithm for reactive samples. Send out specimens with Reactive results to [facility] for confirmation. Order the HIV antibody detection and differentiation: lc#[id number] Performed By: #### L 100.0100, L3890.6100, L3890.6005, L509.8000, L509.4005, BTS, L3890.6300 #### [facility] [address] [place], [place], [address] L509.8002on 10-11-2024 Syphilis Abs Non-Reactive Normal Nonreactive [facility] Comment on above: Performed By: #### L 100.0100, L3890.6100, L3890.6005, L509.8000, L509.4005, BTS, L3890.6300 #### [facility] [address] [place], [address] Laboratory - Chemistry and C hemistry - challengeOrdered By: Sheryl Kern on 10-11-2024 Glucose Ql (U) Negative [facility] - UrinalysisOrder ed By: Sheryl Kern on 10-11-2024 Protein Ql (U) Negative [facility] Lymphocytes Auto (Unsp spec) [#/Vol]Ordered By: Kya Stapleton on 10-11-2024 Lymphocytes (Bld) [#/Vol] 1.21 10*3/uL 0.83-4.51 [facility] Lymphocytes/100 WBC Auto (Un sp spec)Ordered By: Kya Stapleton on 10-11-2024 Lymphocytes/100 WBC (Bld) 14.9 % Low 19-41 [facility] MCV (mean corpuscular volume ) determinationOrdered By: Kya Stapleton on 10-11-2024 MCV (RBC) [Entitic vol] 91.4 fL 81-99 [facility] Mean corpuscular hemoglobin (MCH) determinationOrdered By: Kya Stapleton on 10-11-2024 MCH (RBC) [Entitic mass] 31.5 pg 27.0-32.0 [facility] Mean corpuscular hemoglobin concentration (MCHC) determinationOrdered By: Kya Stapleton on 10-11-2024 MCHC (RBC) [Mass/Vol] 34.5 g/dL 32-36 [facility] Mean platelet volume determi nationOrdered By: Kya Stapleton on 10-11-2024 Platelet mean volume (Bld) [Entitic vol] 10.2 fL 6.2-12.0 [facility] Monocyte percentageOrdered B y: Kya Stapleton on 10-11-2024 Monocytes/100 WBC (Bld) 6.5 % 0-10 [facility] Neutrophil percentageOrdered By: Kya Stapleton on 10-11-2024 Neutrophils/100 WBC (Bld) 77.3 % High 47-70 [facility] No Panel InformationOrdered By: Kya Stapleton on 10-11-2024 HIV (1&2) Antibody Non-Reactive Nonreactive [facility] Comment on above: Non-ReactiveReactive Repeatedly reactive samples must be confirmed according to CDC recommended confirmatory algorithms. The subresults for either HIVAG or AHIV can be used as an aid in the selection of the confirmation algorithm for reactive samples.Send out specimens with Reactive results to [facility] for confirmation.Order the HIV antibody detection and differentiation: #[id number] Nucleated red blood cell per centageOrdered By: Kya Stapleton on 10-11-2024 Nucleated RBC/100 WBC (Bld) [Ratio] 0 % 0-5 [facility] Setter Machine Office Visit Reporton 10-11-2024 Setter Machine Office Visit Report [facility]'[address], [address] [place] [address] OFFICE VISIT Date of Service: 10/11/24 MR#: [id number] Acct: [id number] Name: CALLUM CABALLERO Rep #: [id number] : 1995 Provider: AJIT guerra Age/Sex: 29/F [place] [facility] [place]: Signed Intake Vital Signs 07/22/24 08:44 09/13/24 13:49 10/11/24 13:11 Height 5 ft 6 in 5 ft 6 in 5 ft 6 in Weight: 162 lb BMI 26.1 BP 108/66 Intake Visit Reasons: 27 WK OB/GLUCOSE Chief Complaint: 27 Week OB/Glucose Detonator Maker Required: No Is patient in pain?: No Allergies No Known Allergies Allergy (Verified 10/11/24 13:12) Medications ???Medication ???Instructions ???Recorded ???Confirmed ???Type multivit-min no.71-iron fum 28 cap PO 06/07/24 10/11/24 History mg-folate no.1 1 mg-dha 300 mg capsule (PNV-[place]) Last Menstrual Period: 04/02/24 Zika: Zika virus screening: Negative : Yes PFSH PFSH Family History Aunt Cancer Maternal- not sure what kind Grandfather Cancer Paternal- prostate Colon cancer Paternal Uncle Diabetes Paternal Mother Family history of recurrent miscarriage Social History adopted: No household members: spouse 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 history of recent travel: Yes ( -April) out of state: No out of country: Yes sexually active: Yes Smoking Status: Never smoker alcohol intake: current alcohol intake frequency: holidays/special occasions only details: Not while substance use type: does not use well-balanced diet: daily or most days caffeine: No eating out: rarely or never during the past year weight has: remained stable what type of physical activity do you participate in: none jacob/confucianism: Jewish seatbelt use: always do you feel safe at home: Yes 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 OB Visit GAMAL Calculator Estimated Delivery Date Method Current WG Current Estimate 01/07/25 LMP (Certain) 27w 3d Other Estimates 01/06/25 Ultrasound #1 27w 4d Expected Delivery Route/Plan Labor Preferences- CB/BF classes: encouraged labor support person: Jewish labor intervention preferences: [] pain management options preferred: limited cut cord/dad catch: maybe : yes PP control planned: discussed discussed possible routes of delivery and associated risks: [] special requests: [] Specific Issue/Plans Covid status: [] Flu vaccine: [] Tdap vaccine: [] Rhogam: na LARC form signed: yes Problem list reviewed and updated with the most current plan of care details and appropriate orders placed. Relevant counseling for the gestational age provided. Continue routine care and follow up unless otherwise noted in visit notes/problem list details Initial Weight: Not Recorded Date -???-???-???-???-???- ???-???-???-???-???-? ??-???- EGA Weight BP Urine Prot -???-???-???-???-???- ???-???-???-???-???-? ??-???- Glucose FHR FuHt Pres Dilation -???-???-???-???-???- ???-???-???-???-???-? ??-???- Effaced St Visit Note 06/17/24 -???-???-???-???-???- ???-???-???-???-???-? ??-???- 10w 6d 152 lb 8 oz 125/65 -???-???-???-???-???- ???-???-???-???-???-? ??-???- 168 -???-???-???-???-???- ???-???-???-???-???-? ??-???- JV- CRL maurice ures just under 4cm and consistent with LMP. They are undecided about NIPT but will do first trimester labs today. 07/22/24 -???-???-???-???-???- ???-???-???-???-???-? ??-???- 15w 6d 156 lb 108/57 Negative -???-???-???-???-???- ???-???-???-???-???-? ??-???- Negative 160 -???-???-???-???-???- ???-???-???-???-???-? ??-???- KW-no vb/craft recruiter mping. no concerns US ordered. 08/16/24 -???-???-???-???-???- ???-???-???-???-???-? ??-???- 19w 3d 158 lb 4 oz 107/64 Negative -???-???-???-???-???- ???-???-???-???-???-? ??-???- Negative 145 -???-???-???-???-???- ???-???-???-???-???-? ??-???- SM- n ovb cr maping aswered questions about anatomy scan and is fine with proceeding. 09/13/24 -???-???-???-???-???- ???-???-???-???-???-? ??-???- 23w 3d 166 lb 114/69 Negative -???-???-???-???-???- ???-???-???-???-???-? ??-???- Negative 140 -???-???-???-???-???- ???-???-???-???-???-? ??-???- KW- no vb/cr amping. good fm. CBE classes discussed. 28 week labs discussed. 10/11/24 - (more content not included)... Normal [facility] Platelet countOrdered By: Magan Stapleton on 10-11-2024 Platelets (Bld) [#/Vol] 210 10*3/uL 150-450 [facility] RBC Auto (Bld) [#/Vol]Ordere d By: Kya Stapleton on 10-11-2024 RBC (Bld) [#/Vol] 3.49 10*6/uL Low 4.2-5.4 [facility] Serum Varicella zoster virus IgG antibody assay by immunoassay (units/volume)Ordered By: Sheryl Kern on 10-11-2024 VZV IgG IA Qn (S) See comment [facility] Comment on above: RESULT: REACTIVEPl ease note reference interval changeA Reactive result is considered evidence of immunity toVZV. Reactive indicates that VZV IgG was detectedconsistent with previous infection and/or vaccination.A Non Reactive result indicates that VZV IgG was notdetected suggesting that immunity has not been acquired.Performed at: [facility] [id number] Director: Demian Carter PhD, Phone: [phone] T. pallidum abOrdered By: Magan Stapleton on 10-11-2024 Syphilis Total Antibody Non-Reactive Nonreactiv e [facility] VZV IgG IA Qn (S)Ordered By: Sheryl Kern on 10-11-2024 Varicella-Zoster IgG Antibody See comment [facility] Comment on above: RESULT: REACTIVEPl ease note reference interval changeA Reactive result is considered evidence of immunity toVZV. Reactive indicates that VZV IgG was detectedconsistent with previous infection and/or vaccination.A Non Reactive result indicates that VZV IgG was notdetected suggesting that immunity has not been acquired.Performed at: [facility] [id number] Director: Demian Carter PhD, Phone: [phone] White blood cell (WBC) count Ordered By: Kya Stapleton on 10-11-2024 WBC (Bld) [#/Vol] 8.1 10*3/uL 4.4-11.0 [facility] - Chemistry and C hemistry - challengeOrdered By: Kya Stapleton on 09-13-2024 Glucose Ql (U) Negative [facility] - UrinalysisOrder ed By: Kya Stapleton on 09-13-2024 Protein Ql (U) Negative [facility] Setter Machine Office Visit Reporton 09-13-2024 Setter Machine Office Visit Report [facility] [address], [address] [place] [address] OFFICE VISIT Date of Service: 09/13/24 MR#: [id number] Acct: [id number] Name: CALLUM CABALLERO Rep #: [id number] : 1995 Provider: DYLON Parker ams Age/Sex: 29/F [place] [facility] [place]: Signed Intake Vital Signs 07/22/24 08:44 08/16/24 14:46 09/13/24 13:49 Height 5 ft 6 in 5 ft 6 in 5 ft 6 in Weight: 158 lb 4 oz 166 lb BMI 25.5 26.8 BP 107/64 114/69 Intake Visit Reasons: 23 WK OB Chief Complaint: 23 Week OB Detonator Maker Required: No Is patient in pain?: No Allergies No Known Allergies Allergy (Verified 09/13/24 13:49) Medications ???Medication ???Instructions ???Recorded ???Confirmed ???Type multivit-min no.71-iron fum 28 cap PO 06/07/24 09/13/24 History mg-folate no.1 1 mg-dha 300 mg capsule (PNV-[place]) Last Menstrual Period: 04/02/24 Zika: Zika virus screening: Negative : No PFSH PFSH Family History Aunt Cancer Maternal- not sure what kind Grandfather Cancer Paternal- prostate Colon cancer Paternal Uncle Diabetes Paternal Mother Family history of recurrent miscarriage Social History adopted: No household members: spouse 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 history of recent travel: Yes ( -April) out of state: No out of country: Yes sexually active: Yes Smoking Status: Never smoker alcohol intake: current alcohol intake frequency: holidays/special occasions only details: Not while substance use type: does not use well-balanced diet: daily or most days caffeine: No eating out: rarely or never during the past year weight has: remained stable what type of physical activity do you participate in: none jacob/confucianism: Jewish seatbelt use: always do you feel safe at home: Yes 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 OB Visit GAMAL Calculator Estimated Delivery Date Method Current WG Current Estimate 01/07/25 LMP (Certain) 23w 3d Other Estimates 01/06/25 Ultrasound #1 23w 4d Expected Delivery Route/Plan Labor Preferences- CB/BF classes: [] labor support person: [] labor intervention preferences: [] pain management options preferred: [] cut cord/dad catch: [] : [] PP control planned: [] discussed possible routes of delivery and associated risks: [] special requests: [] Specific Issue/Plans Covid status: [] Flu vaccine: [] Tdap vaccine: [] Rhogam: [] LARC form signed: [] Problem list reviewed and updated with the most current plan of care details and appropriate orders placed. Relevant counseling for the gestational age provided. Continue routine care and follow up unless otherwise noted in visit notes/problem list details Initial Weight: Not Recorded Date -???-???-???-???-???- ???-???-???-???-???-? ??-???- EGA Weight BP Urine Prot -???-???-???-???-???- ???-???-???-???-???-? ??-???- Glucose FHR FuHt Pres Dilation -???-???-???-???-???- ???-???-???-???-???-? ??-???- Effaced St Visit Note 06/17/24 -???-???-???-???-???- ???-???-???-???-???-? ??-???- 10w 6d 152 lb 8 oz 125/65 -???-???-???-???-???- ???-???-???-???-???-? ??-???- 168 -???-???-???-???-???- ???-???-???-???-???-? ??-???- JV- CRL maurice ures just under 4cm and consistent with LMP. They are undecided about NIPT but will do first trimester labs today. 07/22/24 -???-???-???-???-???- ???-???-???-???-???-? ??-???- 15w 6d 156 lb 108/57 Negative -???-???-???-???-???- ???-???-???-???-???-? ??-???- Negative 160 -???-???-???-???-???- ???-???-???-???-???-? ??-???- KW-no vb/craft recruiter mping. no concerns US ordered. 08/16/24 -???-???-???-???-???- ???-???-???-???-???-? ??-???- 19w 3d 158 lb 4 oz 107/64 Negative -???-???-???-???-???- ???-???-???-???-???-? ??-???- Negative 145 -???-???-???-???-???- ???-???-???-???-???-? ??-???- SM- n ovb cr maping aswered questions about anatomy scan and is fine with proceeding. 09/13/24 -???-???-???-???-???- ???-???-???-???-???-? ??-???- 23w 3d 166 lb 114/69 Negative -???-???-???-???-???- ???-???-???-???-???-? ??-???- Negative 140 -???-???-???-???-???- ???-???-???-???-???-? ??-???- KW- no vb/cr amping. good fm. CBE classes discussed. 28 week labs discussed. ACOG First Trimester First Trimester: (more content not included)... Normal [facility] OB Anatomy w/ Transvaginalon 08-23-2024 OB Anatomy w/ Transvaginal [facility] [address] [place] [address] OB Anatomy w/ Transvaginal MR#: [id number] Acct: [id number] Name: CALLUM CABALLERO Rep #: [id number] : 1995 F 29 From: Panfilo Jenkins i DO PCP: Care Physician,No Primary Status: [facility] [address] Study: OB Anatomy w/ Transvaginal Date of Exam: 08/23 Exam# [id number] Ordering Dr: Kya Stapleton CNM PROCEDURE: ultrasound. REASON FOR EXAM: Anatomy scan COMPARISON: None available. FINDINGS Single live intrauterine gestation in transverse lie. The max vertical amniotic fluid pocket is 5.7 cm. heart rate 155 beats per minute. Cervical length is 3.9 cm, closed. The placenta is posterior. No retroplacental fluid collection or gross evidence of placenta previa. No gross anomalies are demonstrated. Biparietal diameter 4.5 cm. Head circumference 17.3 cm. Abdominal circumference 15.5 cm. Femur length 3.3 cm. Estimated weight 351 g +/minus sign 93 g, at the 43rd percentile. Facial features appear intact. There appears to be a four-chamber heart. cord insertion unremarkable. There appears to be a three-vessel cord. Spine and extremities grossly unremarkable. US/OB Anatomy w/ Transvaginal IMPRESSION: Single live intrauterine gestation in transverse lie. Estimated gestational age is 20 weeks, 3 days. Estimated date of confinement 01/07/2025. No gross anomalies. Normal-appearing amniotic fluid level. Posterior placenta. Reading Location: [id number] CC: DYLON Stapleton; No Primary Care Physician Client Service Supervisor: Signed Normal [facility] - Chemistry and C hemistry - challengeOrdered By: Evelia Catalan on 08-16-2024 Glucose Ql (U) Negative [facility] - UrinalysisOrder ed By: Evelia Catalan on 08-16-2024 Protein Ql (U) Negative [facility] Setter Machine Office Visit Reporton 08-16-2024 Setter Machine Office Visit Report [facility] [address], [address] [place] [address] OFFICE VISIT Date of Service: 08/16/24 MR#: [id number] Acct: [id number] Name: CALLUM CABALLERO Rep #: [id number] : 1995 Provider: Dr. Evelia ramirez MD Age/Sex: 29/F [place] [facility] Status: Signed Intake Vital Signs 06/17/24 10:23 07/22/24 08:44 08/16/24 14:46 Height 5 ft 6 in 5 ft 6 in 5 ft 6 in Weight: 158 lb 4 oz BMI 25.5 BP 107/64 Intake Visit Reasons: 19 wk ob Chief Complaint: 19 Week OB Detonator Maker Required: No Is patient in pain?: No Allergies No Known Allergies Allergy (Verified 08/16/24 14:52) Medications ???Medication ???Instructions ???Recorded ???Confirmed ???Type multivit-min no.71-iron fum 28 cap PO 06/07/24 08/16/24 History mg-folate no.1 1 mg-dha 300 mg capsule (PNV-[place]) Last Menstrual Period: 04/02/24 Zika: Zika virus screening: Negative : No Have you fallen in the past year?: No PFSH PFSH Family History Aunt Cancer Maternal- not sure what kind Grandfather Cancer Paternal- prostate Colon cancer Paternal Uncle Diabetes Paternal Mother Family history of recurrent miscarriage Social History adopted: No household members: spouse 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 history of recent travel: Yes ( -April) out of state: No out of country: Yes sexually active: Yes Smoking Status: Never smoker alcohol intake: current alcohol intake frequency: holidays/special occasions only details: Not while substance use type: does not use well-balanced diet: daily or most days caffeine: No eating out: rarely or never during the past year weight has: remained stable what type of physical activity do you participate in: none jacob/confucianism: Jewish seatbelt use: always do you feel safe at home: Yes 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 OB Visit GAMAL Calculator Estimated Delivery Date Method Current WG Current Estimate 01/07/25 LMP (Certain) 19w 3d Other Estimates 01/06/25 Ultrasound #1 19w 4d Expected Delivery Route/Plan Labor Preferences- CB/BF classes: [] labor support person: [] labor intervention preferences: [] pain management options preferred: [] cut cord/dad catch: [] : [] PP control planned: [] discussed possible routes of delivery and associated risks: [] special requests: [] Specific Issue/Plans Covid status: [] Flu vaccine: [] Tdap vaccine: [] Rhogam: [] LARC form signed: [] Problem list reviewed and updated with the most current plan of care details and appropriate orders placed. Relevant counseling for the gestational age provided. Continue routine care and follow up unless otherwise noted in visit notes/problem list details Initial Weight: Not Recorded Date -???-???-???-???-???- ???-???-???-???-???-? ??-???- EGA Weight BP Urine Prot -???-???-???-???-???- ???-???-???-???-???-? ??-???- Glucose FHR FuHt Pres Dilation -???-???-???-???-???- ???-???-???-???-???-? ??-???- Effaced St Visit Note 06/17/24 -???-???-???-???-???- ???-???-???-???-???-? ??-???- 10w 6d 152 lb 8 oz 125/65 -???-???-???-???-???- ???-???-???-???-???-? ??-???- 168 -???-???-???-???-???- ???-???-???-???-???-? ??-???- JV- CRL maurice ures just under 4cm and consistent with LMP. They are undecided about NIPT but will do first trimester labs today. 07/22/24 -???-???-???-???-???- ???-???-???-???-???-? ??-???- 15w 6d 156 lb 108/57 Negative -???-???-???-???-???- ???-???-???-???-???-? ??-???- Negative 160 -???-???-???-???-???- ???-???-???-???-???-? ??-???- KW-no vb/craft recruiter mping. no concerns US ordered. 08/16/24 -???-???-???-???-???- ???-???-???-???-???-? ??-???- 19w 3d 158 lb 4 oz 107/64 Negative -???-???-???-???-???- ???-???-???-???-???-? ??-???- Negative 145 -???-???-???-???-???- ???-???-???-???-???-? ??-???- SM- n ovb cr maping aswered questions about anatomy scan and is fine with proceeding. ACOG First Trimester First Trimester: Discussed Results POC Urinalysis 2 Dip (Clinic) Office Urine Glucose Negative Last Edit by Lali Kyle on 08/16/24 14:54 Office Urine Protein Negative Last Edit by Lali Kyle on 08/16/24 14:54 Coding Level of Care C (more content not included)... Normal [facility] - Chemistry and C hemistry - challengeon 07-22-2024 Glucose Ql (U) Negative [facility] - Urinalysison Protein Ql (U) Negative [facility] Setter Machine Office Visit Reporton 07-22-2024 Setter Machine Office Visit Report [facility] [address] [place] [address], [address] [place] [address] OFFICE VISIT Date of Service: 07/22/24 MR#: [id number] Acct: [id number] Name: CALLUM CABALLERO Rep #: [id number] : 1995 Provider: DYLON Parker ams Age/Sex: 29/F [place] [facility] [place]: Signed Intake Vital Signs 06/17/24 10:23 07/22/24 08:42 07/22/24 08:44 Height 5 ft 6 in 5 ft 6 in 5 ft 6 in Weight: 152 lb 8 oz 156 lb BMI 24.6 25.2 BP 125/65 H 108/57 L Intake Visit Reasons: 15wk OB Detonator Maker Required: No Is patient in pain?: No Allergies No Known Allergies Allergy (Verified 07/22/24 08:43) Medications ???Medication ???Instructions ???Recorded ???Confirmed ???Type multivit-min no.71-iron fum 28 cap PO 06/07/24 07/22/24 History mg-folate no.1 1 mg-dha 300 mg capsule (PNV-[place]) Last Menstrual Period: 04/02/24 Zika: Zika virus screening: Negative : No Have you fallen in the past year?: No PFSH PFSH Family History Aunt Cancer Maternal- not sure what kind Grandfather Cancer Paternal- prostate Colon cancer Paternal Uncle Diabetes Paternal Mother Family history of recurrent miscarriage Social History adopted: No household members: spouse 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 history of recent travel: Yes ( -April) out of state: No out of country: Yes sexually active: Yes Smoking Status: Never smoker alcohol intake: current alcohol intake frequency: holidays/special occasions only details: Not while substance use type: does not use well-balanced diet: daily or most days caffeine: No eating out: rarely or never during the past year weight has: remained stable what type of physical activity do you participate in: none jacob/confucianism: Jewish seatbelt use: always do you feel safe at home: Yes 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 OB Visit GAMAL Calculator Estimated Delivery Date Method Current WG Current Estimate 01/07/25 LMP (Certain) 15w 6d Other Estimates 01/06/25 Ultrasound #1 16w 0d Expected Delivery Route/Plan Labor Preferences- CB/BF classes: [] labor support person: [] labor intervention preferences: [] pain management options preferred: [] cut cord/dad catch: [] : [] PP control planned: [] discussed possible routes of delivery and associated risks: [] special requests: [] Specific Issue/Plans Covid status: [] Flu vaccine: [] Tdap vaccine: [] Rhogam: [] LARC form signed: [] Problem list reviewed and updated with the most current plan of care details and appropriate orders placed. Relevant counseling for the gestational age provided. Continue routine care and follow up unless otherwise noted in visit notes/problem list details Initial Weight: Not Recorded Date -???-???-???-???-???- ???-???-???-???-???-? ??-???- EGA Weight BP Urine Prot -???-???-???-???-???- ???-???-???-???-???-? ??-???- Glucose FHR FuHt Pres Dilation -???-???-???-???-???- ???-???-???-???-???-? ??-???- Effaced St Visit Note 06/17/24 -???-???-???-???-???- ???-???-???-???-???-? ??-???- 10w 6d 152 lb 8 oz 125/65 -???-???-???-???-???- ???-???-???-???-???-? ??-???- 168 -???-???-???-???-???- ???-???-???-???-???-? ??-???- JV- CRL maurice ures just under 4cm and consistent with LMP. They are undecided about NIPT but will do first trimester labs today. 07/22/24 -???-???-???-???-???- ???-???-???-???-???-? ??-???- 15w 6d 156 lb 108/57 -???-???-???-???-???- ???-???-???-???-???-? ??-???- 160 -???-???-???-???-???- ???-???-???-???-???-? ??-???- KW-no vb/craft recruiter mping. no concerns US ordered. ACOG First Trimester First Trimester: Discussed ROS Const Reports system reviewed and no additional complaints, except as documented Eyes Reports system reviewed and no additional complaints, except as documented ENT Reports system reviewed and no additional complaints, except as documented Card Reports system reviewed and no additional complaints, except as documented Resp Reports system reviewed and no additional complaints, except as documented GI Reports system reviewed and no additional complaints, except as documented, Denies nausea and Denies vomiting Reports system reviewed and no additional compla (more content not included)... Normal [facility] PAP I-G w/rfx hrHPV-Aptimaon 06-25-2024 ADEQ Comment Normal . [facility] Comment on above: Order Comment: Reaso n for Exam: Result Comment: Sati sfactory for evaluation. Endocervical and/or squamous metaplastic cells (endocervical component) are present. Performed By: #### L 100.0100, L3890.6100, L3890.6005, L509.8000, L509.4005, BTS, L3890.6300 #### [facility] [address] [place], [place], [id number] COMM . Normal . [facility] Comment on above: Order Comment: Reaso n for Exam: Performed By: #### L 100.0100, L3890.6100, L3890.6005, L509.8000, L509.4005, BTS, L3890.6300 #### [facility] [address] [place], [address] COMMENT Comment Normal . [facility] Comment on above: Order Comment: Reaso n for Exam: Result Comment: This liquid based ThinPrep(R) pap test was screened with the use of an image guided system. Performed By: #### L 100.0100, L3890.6100, L3890.6005, L509.8000, L509.4005, BTS, L3890.6300 #### [facility] [address] [place], [address] DIAG Comment Normal . [facility] Comment on above: Order Comment: Reaso n for Exam: Result Comment: NEGA TIVE FOR INTRAEPITHELIAL LESION OR MALIGNANCY. CELLULAR CHANGES ASSOCIATED WITH INFLAMMATION ARE PRESENT. THIS SPECIMEN WAS RESCREENED PART OF OUR FIREPERSON PROGRAM. Performed By: #### L 100.0100, L3890.6100, L3890.6005, L509.8000, L509.4005, BTS, L3890.6300 #### [facility] [address] [place], [address] HPV RFLX Comment Normal . [facility] Comment on above: Order Comment: Reaso n for Exam: Result Comment: The HPV DNA reflex criteria were not met with this specimen result therefore, no HPV testing was performed. Performed at: [facility] [address] [facility], [place], [place] [id number] Operations Trainer: Kenny Reeder MD, Phone: [phone] Performed at: [address], [place] [id number] Operations Trainer: Mary Alice Pizano MD, Phone: [phone] Performed By: #### L 100.0100, L3890.6100, L3890.6005, L509.8000, L509.4005, BTS, L3890.6300 #### [facility] [address] [place], [place], [id number] PAPSMR Comment Normal . [facility] Comment on above: Order Comment: Reaso n for Exam: Result Comment: The Pap smear is a screening test designed to aid in the detection of premalignant and malignant conditions of the uterine cervix. It is not a diagnostic procedure and should not be used as the sole means of detecting cervical cancer. Both false-positive and false-negative reports do occur. Performed By: #### L 100.0100, L3890.6100, L3890.6005, L509.8000, L509.4005, BTS, L3890.6300 #### [facility] [address] [place], [place], [id number] PERFORM Comment Normal . [facility] Comment on above: Order Comment: Reaso n for Exam: Result Comment: Alicja Vargas Maintenance Clerk (ASCP) Performed By: #### L 100.0100, L3890.6100, L3890.6005, L509.8000, L509.4005, BTS, L3890.6300 #### [facility] [address] [place], [place], [id number] QC REV Comment Normal . [facility] Comment on above: Order Comment: Reaso n for Exam: Result Comment: Mikel Stapleton Maintenance Clerk (ASCP) Performed By: #### L 100.0100, L3890.6100, L3890.6005, L509.8000, L509.4005, BTS, L3890.6300 #### [facility] [address] [place], [address] Chlamydia/GC BATOOL aptimaon CHLAMY,NUC ACID Negative Normal Negative [facility] Comment on above: Performed By: #### L 100.0100, L3890.6100, L3890.6005, L509.8000, L509.4005, BTS, L3890.6300 #### [facility] [address] [place], [address] GC BY NUC ACID Negative Normal Negative [facility] Comment on above: Result Comment: Perf ormed at: =G - [facility] [address] [id number] Operations Trainer: Mary Alice Pizano MD, Phone: [phone] Performed By: #### L 100.0100, L3890.6100, L3890.6005, L509.8000, L509.4005, BTS, L3890.6300 #### [facility] [address] [place], [address] Urine Cultureon 06-18-2024 URC Culture exhibits no growth. Normal [facility] Comment on above: Performed By: #### L 100.0100, L3890.6100, L3890.6005, L509.8000, L509.4005, BTS, L3890.6300 #### [facility] [address] [place], [address] CBC W/Diff, Automatedon 12 Absolute Lymph 1.63 X10 3/uL Normal 0.83-4.51 [facility] Comment on above: Performed By: #### L 100.0100, L3890.6100, L3890.6005, L509.8000, L509.4005, BTS, L3890.6300 #### [facility] [address] [place], [address] Absolute Neut 6.9 X10 3/uL Normal 2.0-7.7 [facility] Comment on above: Performed By: #### L 100.0100, L3890.6100, L3890.6005, L509.8000, L509.4005, BTS, L3890.6300 #### [facility] [address] [place], [address] Basophils/100 WBC (Bld) 0.4 % Normal 0-1 [facility] Comment on above: Performed By: #### L 100.0100, L3890.6100, L3890.6005, L509.8000, L509.4005, BTS, L3890.6300 #### [facility] [address] [place], [address] Eosinophils/100 WBC (Bld) 1.6 % Normal 0-5 [facility] Comment on above: Performed By: #### L 100.0100, L3890.6100, L3890.6005, L509.8000, L509.4005, BTS, L3890.6300 #### [facility] [address] [place], [address] Erythrocyte distribution width (RBC) [Ratio] 14.0 % Normal 11.6-14.6 [facility] Comment on above: Performed By: #### L 100.0100, L3890.6100, L3890.6005, L509.8000, L509.4005, BTS, L3890.6300 #### [facility] [address] [place], [address] Hematocrit (Bld) [Volume fraction] 35.6 % Low 37-47 [facility] Comment on above: Performed By: #### L 100.0100, L3890.6100, L3890.6005, L509.8000, L509.4005, BTS, L3890.6300 #### [facility] [address] [place], [address] Hemoglobin (Bld) [Mass/Vol] 11.5 g/dL Low 12.0-15.0 [facility] Comment on above: Performed By: #### L 100.0100, L3890.6100, L3890.6005, L509.8000, L509.4005, BTS, L3890.6300 #### [facility] [address] [place], [address] IG% 0.200 Normal 0.0-0.9 [facility] Comment on above: Result Comment: IG% - Immature Granulocytes (promyelocytes, myelocytes and metamyelocytes) > 1% indicates that a LEFT SHIFT is Present. Performed By: #### L 100.0100, L3890.6100, L3890.6005, L509.8000, L509.4005, BTS, L3890.6300 #### [facility] [address] [place], [address] Lymphocytes/100 WBC (Bld) 17.5 % Low 19-41 [facility] Comment on above: Performed By: #### L 100.0100, L3890.6100, L3890.6005, L509.8000, L509.4005, BTS, L3890.6300 #### [facility] [address] [place], [address] MCH (RBC) [Entitic mass] 29.3 pg Normal 27.0-32.0 [facility] Comment on above: Performed By: #### L 100.0100, L3890.6100, L3890.6005, L509.8000, L509.4005, BTS, L3890.6300 #### [facility] [address] [place], [address] MCHC (RBC) [Mass/Vol] 32.3 g/dL Normal 32-36 [facility] Comment on above: Performed By: #### L 100.0100, L3890.6100, L3890.6005, L509.8000, L509.4005, BTS, L3890.6300 #### [facility] [address] [place], [address] MCV (RBC) [Entitic vol] 90.8 fL Normal 81-99 [facility] Comment on above: Performed By: #### L 100.0100, L3890.6100, L3890.6005, L509.8000, L509.4005, BTS, L3890.6300 #### [facility] [address] [place], [address] Monocytes/100 WBC (Bld) 6.8 % Normal 0-10 [facility] Comment on above: Performed By: #### L 100.0100, L3890.6100, L3890.6005, L509.8000, L509.4005, BTS, L3890.6300 #### [facility] [address] [place], [address] Neutrophils/100 WBC (Bld) 73.5 % High 47-70 [facility] Comment on above: Performed By: #### L 100.0100, L3890.6100, L3890.6005, L509.8000, L509.4005, BTS, L3890.6300 #### [facility] [address] [place], [address] Nucleated RBC (Bld) [#/Vol] 0 10*3/uL Normal 0-5 [facility] Comment on above: Performed By: #### L 100.0100, L3890.6100, L3890.6005, L509.8000, L509.4005, BTS, L3890.6300 #### [facility] [address] [place], [address] Platelet mean volume (Bld) [Entitic vol] 10.1 fL Normal 6.2-12.0 [facility] Comment on above: Performed By: #### L 100.0100, L3890.6100, L3890.6005, L509.8000, L509.4005, BTS, L3890.6300 #### [facility] [address] [place], [address] Platelets (Bld) [#/Vol] 231 10*3/uL Normal 150-450 [facility] Comment on above: Performed By: #### L 100.0100, L3890.6100, L3890.6005, L509.8000, L509.4005, BTS, L3890.6300 #### [facility] [address] [place], [address] RBC (Bld) [#/Vol] 3.92 10*6/uL Low 4.2-5.4 [facility] Comment on above: Performed By: #### L 100.0100, L3890.6100, L3890.6005, L509.8000, L509.4005, BTS, L3890.6300 #### [facility] [address] [place], [address] RDW SD 46.3 fl High 35.1-43.9 [facility] Comment on above: Performed By: #### L 100.0100, L3890.6100, L3890.6005, L509.8000, L509.4005, BTS, L3890.6300 #### [facility] [address] [place], [address] WBC (Bld) [#/Vol] 9.3 10*3/uL Normal 4.4-11.0 [facility] Comment on above: Performed By: #### L 100.0100, L3890.6100, L3890.6005, L509.8000, L509.4005, BTS, L3890.6300 #### [facility] [address] [place], [place], [id number] HIV - WCHon 06-17-2024 HIV Non-Reactive Normal Nonreactive [facility] Comment on above: Order Comment: Reaso n for Exam: Performed By: #### L 100.0100, L3890.6100, L3890.6005, L509.8000, L509.4005, BTS, L3890.6300 #### [facility] [address] [place], [address] Hepatitis B Surface Antigeno n 06-17-2024 HEP B Surf Ag Non-Reactive Normal Nonreactive [facility] Comment on above: Order Comment: Reaso n for Exam: Performed By: #### L 100.0100, L3890.6100, L3890.6005, L509.8000, L509.4005, BTS, L3890.6300 #### [facility] [address] [place], [place], [address] Hepatitis C Antibodyon 06-17 Hepatitis C AB [facility] Comment on above: Order Comment: Reaso n for Exam: Result Comment: Non Reactive: < 0.8 Equivocal: >/= 0.8 to < 1.0 Reactive: >/= 1.0 The CDC requires that a reactive/equivocal HCV antibody result be sent out for confirmation. HCV Quant by PCR testing. Performed By: #### L 100.0100, L3890.6100, L3890.6005, L509.8000, L509.4005, BTS, L3890.6300 #### [facility] [address] [place], [address] L509.8000on 06-17-2024 Syphilis Abs Non-Reactive Normal [facility] Comment on above: Order Comment: Reaso n for Exam: Performed By: #### L 100.0100, L3890.6100, L3890.6005, L509.8000, L509.4005, BTS, L3890.6300 #### [facility] [place], [address] [facility] Office Visit Reporton 06-17-2024 [facility] Office Visit Report [facility] Department [address], [address] [place] [address] OFFICE VISIT Date of Service: 06/17/24 MR#: [id number] Acct: [id number] Name: CALLUM CABALLERO Rep #: [id number] : 1995 Provider: Dr. Ellie Kwan DO Age/Sex: 29/F [place] [facility] [place]: Signed Intake Vital Signs 06/17/24 10:23 Height 5 ft 6 in Weight: 152 lb 8 oz BMI 24.6 BP 125/65 H Intake Visit Reasons: NEW OB Detonator Maker Required: No Is patient in pain?: No Allergies No Known Allergies Allergy (Verified 06/17/24 10:19) Medications ???Medication ???Instructions ???Recorded ???Confirmed ???Type multivit-min no.71-iron fum 28 cap PO 06/07/24 06/17/24 History mg-folate no.1 1 mg-dha 300 mg capsule (PNV-[place]) Last Menstrual Period: 04/02/24 Zika: Zika virus screening: Negative : No PFSH PFSH Family History Aunt Cancer Maternal- not sure what kind Grandfather Cancer Paternal- prostate Colon cancer Paternal Uncle Diabetes Paternal Mother Family history of recurrent miscarriage Social History adopted: No household members: spouse 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 history of recent travel: Yes ( -April) out of state: No out of country: Yes sexually active: Yes Smoking Status: Never smoker alcohol intake: current alcohol intake frequency: holidays/special occasions only details: Not while substance use type: does not use well-balanced diet: daily or most days caffeine: No eating out: rarely or never during the past year weight has: remained stable what type of physical activity do you participate in: none jacob/confucianism: Jewish seatbelt use: always do you feel safe at home: Yes 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 OB Visit GAMAL Calculator Estimated Delivery Date Method Current WG Current Estimate 01/07/25 LMP (Certain) 10w 6d Other Estimates 01/06/25 Ultrasound #1 11w 0d Comments: HIV: Urine Culture: Sequential Screen: NIPT Screen: Estimated Due Date: 01/07/25 Expected Delivery Route/Plan Labor Preferences- CB/BF classes: [] labor support person: [] labor intervention preferences: [] pain management options preferred: [] cut cord/dad catch: [] : [] PP control planned: [] discussed possible routes of delivery and associated risks: [] special requests: [] Specific Issue/Plans Covid status: [] Flu vaccine: [] Tdap vaccine: [] Rhogam: [] LARC form signed: [] Problem list reviewed and updated with the most current plan of care details and appropriate orders placed. Relevant counseling for the gestational age provided. Continue routine care and follow up unless otherwise noted in visit notes/problem list details Initial Weight: Not Recorded Date -???-???-???-???-???- ???-???-???-???-???-? ??-???- EGA Weight BP Urine Prot -???-???-???-???-???- ???-???-???-???-???-? ??-???- Glucose FHR FuHt Pres Dilation -???-???-???-???-???- ???-???-???-???-???-? ??-???- Effaced St Visit Note 06/17/24 -???-???-???-???-???- ???-???-???-???-???-? ??-???- 10w 6d 152 lb 8 oz 125/65 -???-???-???-???-???- ???-???-???-???-???-? ??-???- 168 -???-???-???-???-???- ???-???-???-???-???-? ??-???- JV- CRL maurice ures just under 4cm and consistent with LMP. They are undecided about NIPT but will do first trimester labs today. Menstrual History Last Menstrual Period: 04/02/24 Reported LMP: definite Normal amount/duration: Yes Frequency in days: 28 On hormonal BC at conception: No hCG+: 05/07/24 Antepartum Record Genetic Screening: Congenital Heart Defect: Other, Neural Tube Defect: Other, Hemoglobinopathy Or Carrier: Other, Cystic Fibrosis: Other, Chromosome Abnormality: Other, Michael-Sachs: Other, Hemophilia: Other, Intellectual Disability/Autism: Other, Recurrent Loss/Stillbirth: Patient (Mother 3 miscarriages), Other Structural Defect: Other, Other Genetic Disease: Other and Maternal Metabolic Disorder: Other Infection History: Live with someone with TB or Exposed to TB: No, Patient or Partner has history of Genital Herpes: No, Rash or Viral illness since last mentrual period: No, Prior GBS-Infected child: No, History of STD: No, HIV Infection: No, History of Hepatitis: No, Rece (more content not included)... Normal [facility] Rubella IgGon 06-17-2024 Rubella IgG Non-Reactive Normal Nonreactive [facility] Comment on above: Order Comment: Reaso n for Exam: Result Comment: Anti body Results Interpretation of Immune Status Non Reactive Presumed Non-Immune Equivocal Equivocal Reactive Presumed Immune Performed By: #### L 100.0100, L3890.6100, L3890.6005, L509.8000, L509.4005, BTS, L3890.6300 #### [facility] [address] [place], [address] Type AND Screenon 06-17-2024 ABO and Rh group Nom (Bld) Blood group A Rh(D) positive Normal [facility] Comment on above: Order Comment: PN Performed By: #### L 100.0100, L3890.6100, L3890.6005, L509.8000, L509.4005, BTS, L3890.6300 #### [facility] [address] [place], [address] Vital Signs Date Time Vital Sign Value Performing Clinician Faci lity 12-26-2024 12:50-0400 Body height 167.64 cm No Primary Care Physician [facility] 12-26-2024 12:50-0400 Body mass index (BMI) [Ratio] 28.3 kg/m2 No Primary Care Physician [facility] 12-26-2024 12:50-0400 Body weight 79.49 kg No Primary Care Physician [facility] 12-26-2024 12:50-0400 Diastolic blood pressure 78 mm[Hg] No Primary Care Physician [facility] 12-26-2024 12:50-0400 Systolic blood pressure 120 mm[Hg] No Primary Care Physician [facility] 12-20-2024 13:52-0400 Body height 167.64 cm Kya Stapleton CNM Work Phone: [facility] 12-20-2024 13:52-0400 Body mass index (BMI) [Ratio] 28.4 kg/m2 Kya Stapleton CNM Work Phone: [facility] 12-20-2024 13:52-0400 Body weight 80 kg Kya Stapleton CNM Work Phone: [facility] 12-20-2024 13:52-0400 Diastolic blood pressure 74 mm[Hg] Kya Stapleton CNM Work Phone: [facility] 12-20-2024 13:52-0400 Systolic blood pressure 116 mm[Hg] Kya Stapleton CNM Work Phone: [facility] 12-06-2024 14:37-0400 Body mass index (BMI) [Ratio] 27.9 kg/m2 Kya Stapleton CNM Work Phone: [facility] 12-06-2024 14:37-0400 Body weight 78.58 kg Kya Stapleton CNM Work Phone: [facility] 12-06-2024 14:37-0400 Diastolic blood pressure 82 mm[Hg] Kya Stapleton CNM Work Phone: [facility] 12-06-2024 14:37-0400 Systolic blood pressure 127 mm[Hg] Kya Stapleton CNM Work Phone: [facility] 11-11-2024 10:49-0400 Body mass index (BMI) [Ratio] 27.1 kg/m2 Kya Stapleton CNM Work Phone: [facility] 11-11-2024 10:49-0400 Body weight 76.43 kg Kya Stapleton CNM Work Phone: [facility] 11-11-2024 10:49-0400 Diastolic blood pressure 69 mm[Hg] Kya Stapleton CNM Work Phone: [facility] 11-11-2024 10:49-0400 Systolic blood pressure 105 mm[Hg] Kya Stapleton CNM Work Phone: [facility] 10-25-2024 15:02-0400 Body mass index (BMI) [Ratio] 26.9 kg/m2 Kya Stapleton CNM Work Phone: [facility] 10-25-2024 15:02-0400 Body weight 75.86 kg Kya Stapleton CNM Work Phone: [facility] 10-25-2024 15:02-0400 Diastolic blood pressure 78 mm[Hg] Kya Stapleton CNM Work Phone: [facility] 10-25-2024 15:02-0400 Systolic blood pressure 117 mm[Hg] Kya Stapleton CNM Work Phone: [facility] 10-11-2024 13:11-0400 Body height 167.64 cm Kya Stapleton CNM Work Phone: [facility] 10-11-2024 13:11-0400 Body mass index (BMI) [Ratio] 26.1 kg/m2 Kya Stapleton CNM Work Phone: [facility] 10-11-2024 13:11-0400 Body weight 73.48 kg Kya Stapleton CNM Work Phone: [facility] 10-11-2024 13:11-0400 Diastolic blood pressure 66 mm[Hg] Kya Stapleton CNM Work Phone: [facility] 10-11-2024 13:11-0400 Systolic blood pressure 108 mm[Hg] Kya Stapleton CNM Work Phone: [facility] 09-13-2024 13:49-0500 Body mass index (BMI) [Ratio] 26.8 kg/m2 Kya Stapleton CNM Work Phone: [facility] 09-13-2024 13:49-0500 Body weight 75.29 kg Kya Stapleton CNM Work Phone: [facility] 09-13-2024 13:49-0500 Diastolic blood pressure 69 mm[Hg] Kya Stapleton CNM Work Phone: [facility] 09-13-2024 13:49-0500 Systolic blood pressure 114 mm[Hg] Kya Stapleton CNM Work Phone: [facility] 08-16-2024 14:46-0500 Body mass index (BMI) [Ratio] 25.5 kg/m2 Kya Stapleton CNM Work Phone: [facility] 08-16-2024 14:46-0500 Body weight 71.78 kg Kya Stapleton CNM Work Phone: [facility] 08-16-2024 14:46-0500 Diastolic blood pressure 64 mm[Hg] Kya Stapleton CNM Work Phone: [facility] 08-16-2024 14:46-0500 Systolic blood pressure 107 mm[Hg] Kya Stapleton CNM Work Phone: [facility] 07-22-2024 08:42-0500 Body mass index (BMI) [Ratio] 25.2 kg/m2 Kya Stapleton CNM Work Phone: [facility] 07-22-2024 08:42-0500 Body weight 70.76 kg Kya Stapleton CNM Work Phone: [facility] 07-22-2024 08:42-0500 Diastolic blood pressure 57 mm[Hg] Kya Stapleton CNM Work Phone: [facility] 07-22-2024 08:42-0500 Systolic blood pressure 108 mm[Hg] Kya Stapleton CNM Work Phone: [facility] Encounters Encounter Date Encounter Type Care Provider Facility Start: 12-26-2024 End: 12-26-2024 Patient encounter procedure Sheryl FONG -[facility] Work Phone: Start: 12-26-2024 End: 12-26-2024 ambulatory No Primary Care Physician [facility] Work Phone: Start: 12-20-2024 End: 12-20-2024 ambulatory No Primary Care Physician [facility] Work Phone: Start: 12-20-2024 End: 12-20-2024 Patient encounter procedure Jill Sethi CNM -[facility] Work Phone: Start: 12-20-2024 End: 12-20-2024 Patient encounter procedure Jill MOSELEYM -[facility] Work Phone: Start: 12-20-2024 End: 12-20-2024 ambulatory yKa Stapleton CNM Work Phone: [facility] Work Phone: Start: 12-20-2024 End: 12-20-2024 ambulatory Jill Sethi Facility:[facility] Start: 12-06-2024 End: 12-06-2024 Patient encounter procedure Kya MOSELEYM -[facility] Work Phone: Start: 12-06-2024 End: 12-06-2024 ambulatory Kya Stapleton Facility:[facility] Start: 11-11-2024 End: 11-11-[address] Ellie Rodríguez DO -[facility] Work Phone: Start: 11-11-2024 End: 11-11-2024 ambulatory Ellie Rodríguez Facility:[facility] Start: 10-25-2024 End: 10-25-[address] Evelia Catalan MD -[facility] Work Phone: Start: 10-25-2024 End: 10-25-2024 ambulatory Evelia Catalan Facility:[facility] Start: 10-11-2024 End: 10-11-2024 Patient encounter procedure Sheryl Kern [employer]C -[facility] Work Phone: Start: 10-11-2024 End: 10-11-2024 ambulatory Kya Stapleton CNM Work Phone: [facility] Work Phone: Start: 10-11-2024 End: 10-11-2024 ambulatory No Primary Care Physician Facility:[facility] Start: 09-13-2024 End: 09-13-2024 Patient encounter procedure Kya Stapleton CNM -[facility] Work Phone: Start: 09-13-2024 End: 09-13-2024 ambulatory No Primary Care Physician [place]: 08-23-2024 End: 08-23-2024 Patient encounter procedure Kya Stapleton CNM -[facility] Work Phone: Start: 08-23-2024 End: 08-23-2024 ambulatory No Primary Care Physician Facility:[facility] Start: 08-16-2024 End: 08-16-[address] Evelia Catalan MD -[facility] Work Phone: Start: 08-16-2024 End: 08-16-2024 ambulatory Evelia Catalan [place] [place]: 07-22-2024 End: 07-22-2024 Patient encounter procedure Kya Stapleton CNM -[facility] Work Phone: Start: 07-22-2024 End: 07-22-2024 ambulatory yKa Stapleton Facility:[facility] Start: 06-17-2024 End: 06-17-2024 ambulatory Elliefrancine Riggins Prasanth Facility:[facility] Start: 06-17-2024 End: 06-17-2024 [facility] Procedures Date Procedure Procedure Detail Performing Clinician Start: 12-20-2024 Measurement of pH in vaginal fluid specimen using nitrazine yellow for detection of rupture of amniotic membrane No Primary Care Physician Comment on above: Amniotic fluid not p resent indicates No Rupture of FetalMembranes at time of specimen collection. Start: 12-20-2024 Beta-hemolytic Strep tococcus culture No Primary Care Physician Start: 10-11-2024 Serologic test for syphilis Kya Stapleton CNM Work Phone: Start: 08-23-2024 Ultrasonography in f irst trimester Kya Stapleton CNM Work Phone: Plan of Treatment Date Care Activity Detail Author [facility] Payers Date Payer Category Payer Unknown [id number] 2024 Unknown [id number] 2024 Self-pay Unknown [id number] 2.16.8 [id number] Unknown [id number] 2.16.8 [id number] Unknown [id number] 2.16.8 [id number] Unknown [id number] 2.16.8 [id number] Unknown [id number] 2.16.8 [id number] Unknown [id number] 2.16.8 [id number] Unknown [id number] 2.16.8 [id number] Unknown [id number] 2.16.8 [id number] Unknown [id number] 2.16.8 [id number] Unknown [id number] 2.16.8 [id number] Unknown [id number] 2.16.8 [id number] Unknown [id number] 2.16.8 [id number] Unknown [id number] 2.16.8 [id number] Unknown [id number] 2.16.8 [id number] Social History Date Type Detail Facility Start: 06-07-2024 Tobacco smoking stat [facility] Never smoked tobacco (finding) [facility] Start: 10-16-2024 Sex Female (finding) [facility] Start: 1995 Sex Assigned At Female W [facility] Progress note 12-20-2024 Note Date & Type Note Facility 12-20-2024 Progress note [facility] Progress note 12-20-2024 Note Date & Type Note Facility 12-20-2024 Progress note Note Date/Time December 20, 2024 2:47p m [facility] [address], [address] [place] [address] OFFICE VISIT Date of Service: 12/20/24 MR#: [id number] Acct: [id number] Name: CALLUM CABALLERO Rep #: [id number] : 1995 Provider: DYLON Sethi Age/Sex: 29/F [place] [facility] [place]: Signed Intake Vital Signs 07/22/24 08:44 12/06/24 14:37 12/20/24 13:52 Height 5 ft 6 in 5 ft 6 in 5 ft 6 in Weight: 176 lb 6 oz BMI 28.4 BP 116/74 Intake Visit Reasons: 37 WK OB Detonator Maker Required: No Is patient in pain?: No Allergies No Known Allergies Allergy (Verified 12/20/24 13:55) Medications ?Medication ?Instructions ?Recorded ?Confirmed ?Type multivit-min no.71-iron fum 28 cap PO 06/07/24 5 History mg-folate no.1 1 mg-dha 300 mg capsule (PNV-[place]) Last Menstrual Period: 04/02/24 Zika: Zika virus screening: Negative : No PFSH PFSH Family History Aunt Cancer Maternal- not sure what kind Grandfather Cancer Paternal- prostate Colon cancer Paternal Uncle Diabetes Paternal Mother Family history of recurrent miscarriage Social History adopted: No household members: spouse 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 history of recent travel: Yes ( -April) out of state: No out of country: Yes sexually active: Yes Smoking Status: Never smoker alcohol intake: current alcohol intake frequency: holidays/special occasions only details: Not while substance use type: does not use well-balanced diet: daily or most days caffeine: No eating out: rarely or never during the past year weight has: remained stable what type of physical activity do you participate in: none jacob/confucianism: Jewish seatbelt use: always do you feel safe at home: Yes 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 OB Visit GAMAL Calculator Estimated Delivery Date Method Current WG Current Estimate 01/07/25 LMP (Certain) 37w 3d Other Estimates 01/06/25 Ultrasound #1 37w 4d Expected Delivery Route/Plan Labor Preferences- CB/BF classes: encouraged labor support person: Jewish labor intervention preferences: [] pain management options preferred: limited cut cord/dad catch: maybe : yes PP control planned: discussed discussed possible routes of delivery and associated risks: [] special requests: [] Specific Issue/Plans Covid status: [] Flu vaccine: [] Tdap vaccine: decline Rhogam: na LARC form signed: yes Problem list reviewed and updated with the most current plan of care details and appropriate orders placed. Relevant counseling for the gestational age provided. Continue routine care and follow up unless otherwise noted in visit notes/problem list details Initial Weight: 145 lb Date -?-?-?-?-?-?-?-?-?-?-?-?- EGA Weight BP Urine Prot -?-?-?-?-?-?-?-?-?-?-?-?- Glucose FHR FuHt Pres Dilation -?-?-?-?-?-?-?-?-?-?-?-?- Effaced St Visit Note 06/17/24 -?-?-?-?--?-?-?-?-?-?-?-?- 10w 6d 152 lb 8 oz (+7 lb 8 oz) 125/65 -?-?-?-?-?-?-?-?-?-?-?-?- 168 -?-?-?-?-?-?-?-?-?-?-?-?- JV- CRL measures just under 4cm and consistent with LMP. They are undecided about NIPT but will do first trimester labs today. 07/22/24 -?-?-?-?-?-?-?-?-?-?-?-?- 15w 6d 156 lb (+11 lb) 108/57 Negative -?-?-?-?-?-?-?-?-?-?-?-?- Negative 160 -?-?-?-?-?-?-?-?-?-?-?-?- KW-no vb/crampin g. no concerns US ordered. 08/16/24 -?-?-?-?-?-?-?-?-?-?-?-?- 19w 3d 158 lb 4 oz (+13 lb 4 oz) 107/64 Negative -?-?-?-?-?-?-?-?-?-?-?-?- Negative 145 -?-?-?-?-?-?-?-?-?-?-?-?- SM- n ovb crmapi ng aswered questions about anatomy scan and is fine with proceeding. 09/13/24 -?-?-?-?-?-?-?-?-?-?-?-?- 23w 3d 166 lb (+21 lb) 114/69 Negative -?-?-?-?-?-?-?-?-?-?-?-?- Negative 140 -?-?-?-?-?-?-?-?-?-?-?-?- KW- no vb/crampi ng. good fm. CBE classes discussed. 28 week labs discussed. 10/11/24 -?-?-?-?-?-?-?-?-?-?-?-?- 27w 3d 162 lb (+17 lb) 108/66 Negative -?--?-?-?-?-?-?-?-?-?-?-?- Negative 144 27 -?-?-?-?-?-?-?-?-?-?-?-?- MH-No VB, LOF. G ood Fm. 28 wk labs, [facility] 10/25/24 -?-?-?-?-?-?-?-?-?-?-?-?- 29w 3d 167 lb 4 oz (+22 lb 4 oz) 117/78 Negative -?-?-?-?-?-?-?-?-?-?-?-?- Negative 145 30 -?-?-?-?-?-?-?-?-?-?-?-?- SM- no vb lof go od fm no reuglar ctx 11/11/24 -?-?-?-?-?-?-?-?-?-?-?-?- 31w 6d 168 lb 8 oz (+23 lb 8 oz) 105/69 Negative -?-?-?-?-?-?-?-?-?-?-?-?- Negative 140 32 Cephalic -?-?-?-?-?-?-?-?-?-?-?-?- JV- no lof, vagi nal bleeding, or dec fm. 12/06/24 -?-?-?-?-?-?-?-?-?-?-?-?- 35w 3d 173 lb 4 oz (+28 lb 4 oz) 127/82 Negative -?-?-?-?-?-?-?-?-?-?-?-?- Negative 135 35 Cephalic -?-?-?-?-?-?-?-?-?-?-?-?- KW- no vb/lof/ct x. good fm. preferences reviewed. minimal intervention. Discussed GBS swab for next visit. 12/20/24 -?-?-?-?-?-?-?-?-?-?-?-?- 37w 3d 176 lb 6 oz (+31 lb 6 oz) 116/74 Negative -?-?-?-?-?-?-?-?-?-?-?-?- Negative 127 37 Cephalic -?-?-?-?-?-?-?-?-?-?-?-?- LC- no vb/ctx, q uestionable increased lof vs d/c ROM plus sent. gbs collected. ACOG First Trimester First Trimester: Discussed Second Trimester Second Trimester: Signs and Symptoms of Labor and Selecting a care provider; Discussed Tobacco Cessation, Discussed Depression/Anxiety and Discussed Intimate Partner Violence Third Trimester Third Trimester: Pain Management Plans, Labor support person(s), Immediate Larc, Circumcision preference, Signs and Symptoms of Preeclampsia, Feeding No and Family Medical Leave or Disability Forms ROS Const Reports system reviewed and no additional complaints, except as documented GI Denies nausea and Denies vomiting Denies urinary hesitancy and Denies urinary urgency Exam Const Orientation: alert, awake and oriented x3 Resp Effort & Inspection: normal respiratory effort, able to speak in complete sentences and symmetric chest movement GI Palpation: soft (gravid) OB/External & Speculum: other (fundus appriopriate for GA) Results POC Urinalysis 2 Dip (Clinic) Office Urine Glucose Negative Last Edit by Kimberlee Livingston on 12/20/24 14: 04 Office Urine Protein Negative Last Edit by Kimberlee Livingston on 12/20/24 14: 04 Coding Level of Care Code OB Routine Diagnoses Rubella non-immune status, antepartum O09.899; Z28.39 Encounter for supervision of normal first in second trimester Z34.02 Trimester: second trimester 37 weeks gestation of Z3A.37 Weeks of gestation: 37 weeks Assessment and Plan Assessment and Plan (1) Rubella non-immune status, antepartum: Status: Acute Comment: offer mmr pp (2) Supervision of normal first : Status: Acute Qualifiers: Trimester: second trimester Qualified Code(s): Z34.02 - Encounter for supervision of normal first , second trimester Comment: PRR, , GAMAL 01/07/25, boy Jewish (3) : Status: Acute Qualifiers: Weeks of gestation: 37 weeks Qualified Code(s): Z3A.37 - 37 weeks gestation of Comment: declined NIPT & Carrier testing, afp declined. normal anatomy Orders: Orders POC Urinalysis 2 Dip (Clinic) Today Plan Details Additional Comments: ACOG trimester education reviewed and updated. see problem list details for updated plan management information and see below for orders placed at this visit. GA appropriate handout given. 12/20/24 [id number] <Electronically signed by Jill brandt CNM> Date _ Jill Sethi CNM Cosigner Signature: Date (if applicable) CC: ~ [employer] Work Phone: Evaluation note 09-13-2024 Note Date & Type Note Facility 09-13-2024 Evaluation note Diagnosis Onset Date Resolution acute September 13, 2024 1:44pm Supervision of normal first acute September 13 2 025 1:44pm Maternal varicella, non-immune resolved September 13 2 025 1:44pm Infertility deleted August 1:44pm acute October 11 12:58pm Rubella non-immune status, antepartum acute October 11, 2 025 12:58pm Supervision of normal first acute October 11, 2024 12:58pm Maternal varicella, non-immune resolved October 11, 2024 12:58pm acute October 25 2:44pm Rubella non-immune status, antepartum acute October 25, 2 025 2:44pm Supervision of normal first acute October 25, 2024 2:44pm acute November 11 10:45am Rubella non-immune status, antepartum acute November 11, 2 025 10:45am Supervision of normal first acute November 11, 2024 10:45am acute December 06, 2024 2:25pm Rubella non-immune status, antepartum acute December 06 2:25pm Supervision of normal first acute December 06, 2024 2 :25pm acute December 20, 2024 1:50pm Rubella non-immune status, antepartum acute December 20 1:50pm Supervision of normal first acute December 20, 2024 1 :50pm [facility] Work Phone: Evaluation note 09-13-2024 Note Date & Type Note Facility 09-13-2024 Evaluation note Diagnosis Onset Date Resolution acute September 13, 2024 1:44pm Supervision of normal first acute September 13, 2 025 1:44pm Maternal varicella, non-immune resolved September 13, 2 025 1:44pm Infertility deleted August 1:44pm acute October 11 12:58pm Rubella non-immune status, antepartum acute October 11, 2 025 12:58pm Supervision of normal first acute October 11, 2024 12:58pm Maternal varicella, non-immune resolved October 11, 2024 12:58pm acute October 25 2:44pm Rubella non-immune status, antepartum acute October 25, 2 025 2:44pm Supervision of normal first acute October 25, 2024 2:44pm acute November 11 10:45am Rubella non-immune status, antepartum acute November 11, 2 025 10:45am Supervision of normal first acute November 11, 2024 10:45am acute December 06, 2024 2:25pm Rubella non-immune status, antepartum acute December 06 2:25pm Supervision of normal first acute December 06, 2024 2 :25pm acute December 20, 2024 1:50pm Rubella non-immune status, antepartum acute December 20 1:50pm Supervision of normal first acute December 20, 2024 1 :50pm acute December 26 12:43pm Rubella non-immune status, antepartum acute December 26 12:43pm Supervision of normal first acute December 26, 2024 12:43pm [facility] Work Phone: Evaluation note 07-22-2024 Note Date & Type Note Facility 07-22-2024 Evaluation note Diagnosis Onset Date Resolution acute July 22, 2 025 8:37am Supervision of normal first acute July 22 8:37am Maternal varicella, non-immune resolved July 22 8:37am Infertility deleted July 22, 2024 8:37am acute August 16, 2024 2:42pm Supervision of normal first acute August 16 2:42pm Maternal varicella, non-immune resolved August 16 2:42pm Infertility deleted August 16, 2024 2:42pm acute September 13, 2024 1:44pm Supervision of normal first acute September 13, 2 025 1:44pm Maternal varicella, non-immune resolved September 13, 2 025 1:44pm Infertility deleted August 1:44pm acute October 11 12:58pm Rubella non-immune status, antepartum acute October 11, 2 025 12:58pm Supervision of normal first acute October 11, 2024 12:58pm Maternal varicella, non-immune resolved October 11, 2024 12:58pm [facility] Work Phone: Reason for referral (narrative) Note Date & Type Note Facility Reason for referral (narrative) No reason for referral information available [facility] Work Phone: Chief Complaint and Reason for Visit Chief Complaint Admit Date 15wk OB July 22, 2024 8: 37am 19 wk ob August 16, 2024 2 :42pm ANATOMY SCAN August 23, 2024 3 :08pm 23 WK OB September 13, 2024 1:44pm 27 WK OB/GLUCOSE October 11, 2024 12: 58pm Reason for Visit Admit Date July 22, 2024 8: 37am Supervision of normal first Ja nuary 2024 8:37am Maternal varicella, non-immune July 222024 8:37am Infertility July 22, 2024 8: 37am August 16, 2024 2 :42pm Supervision of normal first [facility] 2024 2:42pm Maternal varicella, non-immune July 192024 2:42pm Infertility August 16, 2024 2 :42pm September 13, 2024 1:44pm Supervision of normal first [facility] 2024 1:44pm Maternal varicella, non-immune September 13, 2024 1:44pm Infertility September 13, 2024 1:44pm October 11, 2024 12: 58pm Rubella non-immune status, antepartum [facility] 2024 12:58pm Supervision of normal first [facility] 2024 12:58pm Maternal varicella, non-immune September 12:58pm Chief Complaint Admit Date ANATOMY SCAN August 23, 2024 3 :08pm 23 WK OB September 13, 2024 1:44pm 27 WK OB/GLUCOSE October 11, 2024 12: 58pm 29 WK OB October 25, 2024 2:4 4pm 31 WK OB November 11, 2024 10: 45am 35 WK OB December 06, 2024 2:25p m 37 WK OB December 20, 2024 1:50p m Reason for Visit Admit Date September 13, 2024 1:44pm Supervision of normal first [facility] 2024 1:44pm Maternal varicella, non-immune September 13, 2024 1:44pm Infertility September 13, 2024 1:44pm October 11, 2024 12: 58pm Rubella non-immune status, antepartum [facility] 2024 12:58pm Supervision of normal first [facility] 2024 12:58pm Maternal varicella, non-immune September 12:58pm October 25, 2024 2:4 4pm Rubella non-immune status, antepartum Ap ril 2024 2:44pm Supervision of normal first Ap ril 2024 2:44pm November 11, 2024 10: 45am Rubella non-immune status, antepartum Ap ril 2024 10:45am Supervision of normal first Ap ril 2024 10:45am December 06, 2024 2:25p m Rubella non-immune status, antepartum Ma y 2024 2:25pm Supervision of normal first Ma y 2024 2:25pm December 20, 2024 1:50p m Rubella non-immune status, antepartum Ju ne 2024 1:50pm Supervision of normal first Ju ne 2024 1:50pm Chief Complaint Admit Date 23 WK OB September 13, 2024 1:44pm 27 WK OB/GLUCOSE October 11, 2024 12: 58pm 29 WK OB October 25, 2024 2:4 4pm 31 WK OB November 11, 2024 10: 45am 35 WK OB December 06, 2024 2:25p m 37 WK OB December 20, 2024 1:50p m 38 WK OB December 26, 2024 12:4 3pm Reason for Visit Admit Date September 13, 2024 1:44pm Supervision of normal first Fe bruary 2024 1:44pm Maternal varicella, non-immune September 13, 2024 1:44pm Infertility September 13, 2024 1:44pm October 11, 2024 12: 58pm Rubella non-immune status, antepartum [facility] 2024 12:58pm Supervision of normal first [facility] 2024 12:58pm Maternal varicella, non-immune September 12:58pm October 25, 2024 2:4 4pm Rubella non-immune status, antepartum Ap ril 2024 2:44pm Supervision of normal first Ap ril 2024 2:44pm November 11, 2024 10: 45am Rubella non-immune status, antepartum Ap ril 2024 10:45am Supervision of normal first Ap ril 2024 10:45am December 06, 2024 2:25p m Rubella non-immune status, antepartum Ma y 2024 2:25pm Supervision of normal first Ma y 2024 2:25pm December 20, 2024 1:50p m Rubella non-immune status, antepartum [facility] 2024 1:50pm Supervision of normal first [facility] 2024 1:50pm December 26, 2024 12:4 3pm Rubella non-immune status, antepartum Ju wy 2024 12:43pm Supervision of normal first [facility] 2024 12:43pm Family History No Family History Records Found Relationship Condition Age at Onset Recorded Date/T chastity aunt Malignant neoplasm Unknown grandfather Malignant neoplasm Unknown Malignant neoplasm of colon Unknown uncle Diabetes mellitus Unknown mother Family history of recurrent miscarriage U nknown Summary Purpose Advance Directives No Advanced Directives Records Found Additional Source Comments Care Teams (unrecognized sec tion and content) Team Status: Active Member Role Status Dates No Primary Care Physician Primary Care Provider Active Team Status: Inactive Member Role Status Dates Kya Stapleton CNM Attending Provider Active S tart: July 22, 2024 End: July 22, 2024 Team Status: Inactive Member Role Status Dates Dr. Evelia Catalan MD Attending Provider Active Start: August 16, 2024 End: August 16, 2024 Team Status: Inactive Member Role Status Dates Kya Stapleton CNM Attending Provider Active S tart: August 23, 2024 End: August 23, 2024 Kya Stapleton CNM Referring Provider Active S tart: August 23, 2024 End: August 23, 2024 No Primary Care Physician Primary Care Provider Active Start: August 23, 2024 End: August 23, 2024 Team Status: Inactive Member Role Status Dates Kya Stapleton CNM Attending Provider Active S tart: September 13, 2024 End: September 13, 2024 No Primary Care Physician Primary Care Provider Active Start: September 13, 2024 End: September 13, 2024 No Primary Care Physician Referring Provider Active Start: September 13, 2024 End: September 13, 2024 Team Status: Inactive Member Role Status Dates Sheryl Kern NP, MONIKA-C Attending Provider Active Start: October 11, 2024 End: October 11, 2024 No Primary Care Physician Primary Care Provider Active Start: October 11, 2024 End: October 11, 2024 No Primary Care Physician Referring Provider Active Start: October 11, 2024 End: October 11, 2024 Team Status: Inactive Member Role Status Dates No Primary Care Physician Primary Care Provider Active Start: October 11, 2024 End: October 11, 2024 Kya Stapleton CNM Attending Provider Active S tart: October 11, 2024 End: October 11, 2024 Kya Stapleton CNM Referring Provider Active S tart: October 11, 2024 End: October 11, 2024 Team Status: Inactive Member Role Status Dates Dr. Evelia Catalan MD Attending Provider Active Start: October 25, 2024 End: October 25, 2024 No Primary Care Physician Primary Care Provider Active Start: October 25, 2024 End: October 25, 2024 No Primary Care Physician Referring Provider Active Start: October 25, 2024 End: October 25, 2024 Team Status: Inactive Member Role Status Dates Dr. Ellie Rodríguez DO Attending Provider Activ e Start: November 11, 2024 End: November 11, 2024 No Primary Care Physician Primary Care Provider Active Start: November 11, 2024 End: November 11, 2024 No Primary Care Physician Referring Provider Active Start: November 11, 2024 End: November 11, 2024 Team Status: Inactive Member Role Status Dates Kya Stapleton CNM Attending Provider Active S tart: December 06, 2024 End: December 06, 2024 No Primary Care Physician Primary Care Provider Active Start: December 06, 2024 End: December 06, 2024 No Primary Care Physician Referring Provider Active Start: December 06, 2024 End: December 06, 2024 Team Status: Inactive Member Role Status Dates Jill Sethi CNM Attending Provider Active Start: December 20, 2024 End: December 20, 2024 No Primary Care Physician Primary Care Provider Active Start: December 20, 2024 End: December 20, 2024 No Primary Care Physician Referring Provider Active Start: December 20, 2024 End: December 20, 2024 Team Status: Active Member Role Status Dates No Primary Care Physician Primary Care Provider Active Start: December 20, 2024 Jill Sethi CNM Attending Provider Active Start: December 20, 2024 Jill Sethi CNM Referring Provider Active Start: December 20, 2024 Team Status: Inactive Member Role Status Dates Sheryl Kern NP, [employer]-C Attending Provider Active Start: December 26, 2024 End: December 26, 2024 No Primary Care Physician Primary Care Provider Active Start: December 26, 2024 End: December 26, 2024 No Primary Care Physician Referring Provider Active Start: December 26, 2024 End: December 26, 2024 Team Status: Inactive Member Role Status Dates No Primary Care Physician Primary Care Provider Active Start: December 20, 2024 End: December 20, 2024 Jill Sethi CNM Attending Provider Active Start: December 20, 2024 End: December 20, 2024 Jill Sethi CNM Referring Provider Active Start: December 20, 2024 End: December 20, 2024 Goals (unrecognized section and content) Goals may be documented in a n alternate sectionGoals may be documented in an alternate sectionGoals may be documented in an alternate sectionGoals may be documented in an alternate section INFORMATION SOURCE (unrecogn ized section and content) DATE CREATED AUTHOR 12/28/2024 [facility] FOR RECORDS PERTAINING TO PATIENTS WHO ARE OR HAVE BEEN ENROLLED IN A CHEMICAL DEPENDENCY/SUBSTANCEABUSE PROGRAM, SOME INFORMATION MAY BE OMITTED. This clinical summary was aggregated from multiple sources. Caution should be exercised in using it in the provision of clinical care. This summary normalizes information from multiple sources, and as a consequence, information in this document may materially change the coding, format and clinical context of patient data. In addition, data may be omitted in some cases. CLINICAL DECISIONS SHOULD BE BASED ON THE PRIMARY CLINICAL RECORDS. [employer] provides no warranty or guarantee of the accuracy or completeness of information in this document.
--- OUTSIDE RECORDS SUMMARY | 2024-12-29 18:02 | XMS RPT_ITS | CCD ---
Author Organization [facility]ini[facility] Care Team Providers Care Buttonhole Facer Name Role Phone Kya Stapleton CNM Attending Provider Dr. Evelia Catalan MD Attending Provider [phone] Kya Stapleton CNM Referring Provider [phone] Care Physician, No Primary Primary Care Provider Unavailable Care Physician, No Primary Referring Provider Un available Sheryl Hook Attending Provider [phone] Kya Stapleton CNM Attending Provider [phone] Dr. Evelia Catalan MD Attending Provider [phone] Dr. Ellie Rodríguez DO Attending Provider Jill Sethi CNM Attending Provider [phone] Kya Stapleton CNM Attending Provider Care Physician, No Primary Primary Care Provider Unavailable Kya Stapleton CNM Referring Provider [phone] Jill Sethi CNM Referring Provider Care Physician, No Primary Primary Care Unava ilable Sheryl Kern NP Attending Unavailable Care Physician, No Primary Referring Unava ilable Jill Sethi Attending Unavailable Jill Sethi Referring Unavailable Care Physician, No Primary Primary Care Unava ilable Ellie Rodríguez Attending UnavailEllie Ieyr Referring Unavailabl e Care Physician, No Primary Primary Care Unava ilable Kya Stapleton Attending Unavailable Kya Stapleton Referring Unavailable [...] Primary Care Unava ilable Ellie Rodríguez [facility] Kya Stapleton Attending Unavailable Evelia Catalan Attending Unavailable Care Physician, No Primary Referring Unava ilable Care Physician, No Primary Primary Care Unava ilable Evelia Catalan Attending Unavailable Care Physician, No Primary Primary Care Unava ilable Kya Stapleton Attending Unavailable Care Physician, No Primary Referring Unava ilable Medications Current Medications Medication Drug Class(es) Dates Sig (Normalized) Sig (Original) Mv-Mins 65-Hfbg-Nijbx No.1-Dha (Pnv-Myrtlewood) 28-1-300 mg capsule (4 sources) Start: 06-07-2024 Mv-Mins 90-Wxfb-Xlwhx No.1-Dha (Pnv-Myrtlewood) 28-1-300 mg capsule Active NMA PO June [...] Comment on above: PRR, , GAMAL , Sikhism declined NIPT & Prince ier testing, afp declined. normal anatomy PRR, , GAMAL , boy Sikhism gbs neg. declined NI PT & Carrier [...] Test Name Value Interpretation Reference Range Facility Clerical Adjudicator Office Visit Reporton 12-26-2024 Clerical Adjudicator Office Visit Report [facility] [address], [address] [place] [address] OFFICE VISIT Date of Service: 12/26/24 MR#: [id number] Acct: [id number] Name: CALLUM CABALLERO Rep #: [id number] : 1995 Provider: AJIT guerra Age/Sex: 29/F [place] [facility] [place]: Signed Intake Vital Signs 07/22/24 08:44 12/20/24 13:52 12/26/24 12:50 Height 5 ft 6 in 5 ft 6 in 5 ft 6 in Weight: 175 lb 4 oz BMI 28.3 BP 120/78 Intake Visit Reasons: 38 WK OB Chief Complaint: 38 Week 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 Is patient in pain?: No Allergies No Known Allergies Allergy (Verified 12/26/24 12:50) Medications ???Medication ???Instructions ???Recorded ???Confirmed ???Type multivit-min no.71-iron fum 28 cap PO 06/07/24 12/26/24 History mg-folate no.1 1 mg-dha 300 mg capsule (PNV-Myrtlewood) Last Menstrual Period: 04/02/24 Zika: Zika virus [...] physical activity do you participate in: none jacob/amish: Sikhism seatbelt use: always do you feel safe at home: Yes 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 no concerns US ordered. 08/16/24 -???-???-???-???-???- [...] 28 w (more content not included)... Normal [facility] Rule out Beta Strep (Grp. B) on 12-22-2024 YAMINI Group B Beta Streptococcus is not isolated. Normal [facility] Comment on above: Performed By: #### L 100.0100, L3890.6100, L3890.6005, L509.8000, L509.4005, BTS, L3890.6300 #### [facility] [address] [place], [address] (ROM) Rupture Of Membraneson 12-20-2024 ROM Negative Normal Negative [facility] Comment on above: Result Comment: Amni otic fluid not present indicates No Rupture of Membranes at time of specimen collection. Performed By: #### L 100.0100, L3890.6100, L3890.6005, L509.8000, L509.4005, BTS, L3890.6300 #### [facility] [address] [place], [place], [address] Laboratory - Chemistry and C hemistry - challengeOrdered By: Jill Sethi on 12-20-2024 Glucose Ql (U) Negative [facility] Laboratory - UrinalysisOrder ed By: Jill Sethi on 12-20-2024 Protein Ql (U) Negative [facility] Clerical Adjudicator Office Visit Reporton 12-20-2024 Clerical Adjudicator Office Visit Report [facility] [address], [address] [place] [address] OFFICE VISIT Date of Service: 12/20/24 MR#: [id number] Acct: [id number] Name: CALLUM CABALLERO Rep #: [id number] : 1995 Provider: DYLON tellez Age/Sex: 29/F [place] [facility] [place]: Signed Intake Vital Signs 07/22/24 08:44 12/06/24 14:37 12/20/24 13:52 Height 5 ft 6 in 5 ft 6 in 5 ft 6 in Weight: 176 lb 6 oz BMI 28.4 BP 116/74 Intake Visit Reasons: 37 WK 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 Is patient in pain?: No Allergies No Known Allergies Allergy (Verified 12/20/24 13:55) Medications ???Medication ???Instructions ???Recorded ???Confirmed ???Type multivit-min no.71-iron fum 28 cap PO 06/07/24 12/20/24 History mg-folate no.1 1 mg-dha 300 mg capsule (PNV-Myrtlewood) Last Menstrual Period: 04/02/24 Zika: Zika virus [...] physical activity do you participate in: none jacob/amish: Sikhism seatbelt use: always do you feel safe at home: Yes 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 no concerns US ordered. 08/16/24 -???-???-???-???-???- [...] discussed. 10/11/24 (more content not included)... Normal [facility] Screening beta-hemolytic Str eptococcus cultureOrdered By: Jill Sethi on 12-20-2024 Beta-hemolytic Streptococcus culture Group B Beta Streptococcus is not isolated. [facility] Laboratory - Chemistry and C hemistry - challengeOrdered By: Kya Stapleton on 12-06-2024 Glucose Ql (U) Negative [facility] Laboratory - UrinalysisOrder ed By: Kya Stapleton on 12-06-2024 Protein Ql (U) Negative [facility] Clerical Adjudicator Office Visit Reporton 12-06-2024 Clerical Adjudicator Office Visit Report [facility] [address], [address] [place] [address] OFFICE VISIT Date of Service: 12/06/24 MR#: [id number] Acct: [id number] Name: CALLUM CABALLERO Rep #: [id number] : 1995 Provider: DYLON Parker ams Age/Sex: 29/F [place] [facility] [place]: Signed Intake Vital Signs 07/22/24 08:44 11/11/24 10:49 12/06/24 14:37 Height 5 ft 6 in 5 ft 6 in 5 ft 6 in Weight: 173 lb 4 oz BMI 27.9 BP 127/82 H Intake Visit Reasons: 35 WK OB Chief Complaint: 35wk 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 Is patient in pain?: No Allergies No Known Allergies Allergy (Verified 12/06/24 14:35) Medications ???Medication ???Instructions ???Recorded ???Confirmed ???Type multivit-min no.71-iron fum 28 cap PO 06/07/24 12/06/24 History mg-folate no.1 1 mg-dha 300 mg capsule (PNV-Myrtlewood) Last Menstrual Period: 04/02/24 : No PFSH [...] physical activity do you participate in: none jacob/amish: Sikhism seatbelt use: always do you feel safe at home: Yes 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 no concerns US ordered. 08/16/24 -???-???-???-???-???- [...] 10/11/24 -???-???-???-???-? (more content not included)... Normal [facility] Laboratory - Chemistry and C hemistry - challengeOrdered By: Ellie Rader on 11-11-2024 Glucose Ql (U) Negative [facility] Laboratory - UrinalysisOrder ed By: Ellie Rader on 11-11-2024 Protein Ql (U) Negative [facility] Clerical Adjudicator Office Visit Reporton 11-11-2024 Clerical Adjudicator Office Visit Report [facility], [address] [place] [address] OFFICE VISIT Date of Service: 11/11/24 MR#: [id number] Acct: [id number] Name: ADA,CALLUM C Rep #: [id number] : 1995 Provider: Dr. Ellie Kwan DO Age/Sex: 29/F [place] [facility] [place]: Signed Intake Vital Signs 07/22/24 08:44 09/13/24 13:49 10/25/24 15:02 11/11/24 10:49 Height 5 ft 6 in 5 ft 6 in 5 ft 6 in 5 ft 6 in Weight: 168 lb 8 oz BMI 27.1 BP 105/69 Intake Visit Reasons: 31 WK 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 Is patient in pain?: No Allergies No Known Allergies Allergy (Verified 11/11/24 10:50) Medications ???Medication ???Instructions ???Recorded ???Confirmed ???Type multivit-min no.71-iron fum 28 cap PO 06/07/24 11/11/24 History mg-folate no.1 1 mg-dha 300 mg capsule (PNV-Myrtlewood) Last Menstrual Period: 04/02/24 Zika: Zika virus [...] physical activity do you participate in: none jacob/amish: Sikhism seatbelt use: always do you feel safe at home: Yes 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 no concerns US ordered. 08/16/24 -???-???-???-???-???- [...] classes discussed. (more content not included)... Normal [facility] Laboratory - Chemistry and C hemistry - challengeOrdered By: Eveliadebra Catalan on 10-25-2024 Glucose Ql (U) Negative [facility] Laboratory - UrinalysisOrder ed By: Evelia Catalan on 10-25-2024 Protein Ql (U) Negative [facility] Clerical Adjudicator Office Visit Reporton 10-25-2024 Clerical Adjudicator Office Visit Report [facility] [address], [address] [place] [address] OFFICE VISIT Date of Service: 10/25/24 MR#: [id number] Acct: [id number] Name: CALLUM CABALLERO Rep #: [id number] : 1995 Provider: Dr. Evelia ramirez MD Age/Sex: 29/F [place] [facility]: Signed Intake Vital Signs 07/22/24 08:44 10/11/24 13:11 10/25/24 15:02 Height 5 ft 6 in 5 ft 6 in 5 ft 6 in Weight: 167 lb 4 oz BMI 26.9 BP 117/78 Intake Visit Reasons: 29 WK 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 Is patient in pain?: No Feel stressed/tense/nervou s/anxious/difficulty sleeping: not at all Allergies No Known Allergies Allergy (Verified 10/25/24 15:03) Medications ???Medication ???Instructions ???Recorded ???Confirmed ???Type multivit-min no.71-iron fum 28 cap PO 06/07/24 10/25/24 History mg-folate no.1 1 mg-dha 300 mg capsule (PNV-Myrtlewood) Last Menstrual Period: 04/02/24 Zika: Zika virus [...] physical activity do you participate in: none jacob/amish: Sikhism seatbelt use: always do you feel safe at home: Yes 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 no concerns US ordered. 08/16/24 -???-???-???-???-???- [...] 28 week (more content not included)... Normal [facility] V-Zoster IgG (Immunity)on V ZOSTER IgG Normal [facility] Comment on above: Result Comment: RESU LT: REACTIVE Please note reference interval change A Reactive result is considered evidence of immunity to VZV. Reactive indicates that VZV IgG was detected consistent with previous infection and/or vaccination. A Non Reactive result indicates that VZV IgG was not detected suggesting that immunity has not been acquired. Performed at: [facility] [address] [place] [id number] Helper Driver: Demian Carter PhD, Phone: [phone] Performed By: #### L 3400.0000 #### [facility] [address] [place], [address] Absolute lymphocyte countOrd ered By: Kya Stapleton on 10-11-2024 Lymphocytes Auto (Unsp spec) [#/Vol] 1.21 10*3/uL 0.83-4.51 [facility] Absolute neutrophil countOrd ered By: Kya Stapleton on 10-11-2024 Neutrophils (Bld) [#/Vol] 6.3 10*3/uL 2.0-7.7 [facility] Automated lymphocyte count a s percentage of total leukocytesOrdered By: yKa Stapleton on 10-11-2024 Lymphocytes/100 WBC Auto (Unsp spec) 14.9 % Low 19-41 [facility] Basophil percentageOrdered B y: Kya Stapleton on 10-11-2024 Basophils/100 WBC (Bld) 0.2 % 0-1 [facility] CBC W/Diff, Automatedon 09-15 Absolute Lymph 1.21 X10 3/uL Normal 0.83-4.51 [facility] Comment on above: Performed By: #### L 100.0100, L509.8002, L3890.6006, L501.0250 #### [facility] [address] [place], [address] Absolute Neut 6.3 X10 3/uL Normal 2.0-7.7 [facility] Comment on above: Performed By: #### L 100.0100, L509.8002, L3890.6006, L501.0250 #### [facility] [address] [place], [address] Basophils/100 WBC (Bld) 0.2 % Normal 0-1 [facility] Comment on above: Performed By: #### L 100.0100, L509.8002, L3890.6006, L501.0250 #### [facility] [address] [place], [address] Eosinophils/100 WBC (Bld) 0.7 % Normal 0-5 [facility] Comment on above: Performed By: #### L 100.0100, L509.8002, L3890.6006, L501.0250 #### [facility] [address] [place], [address] Erythrocyte distribution width (RBC) [Ratio] 13.3 % Normal 11.6-14.6 [facility] Comment on above: Performed By: #### L 100.0100, L509.8002, L3890.6006, L501.0250 #### [facility] [address] [place], [address] Hematocrit (Bld) [Volume fraction] 31.9 % Low 37-47 [facility] Comment on above: Performed By: #### L 100.0100, L509.8002, L3890.6006, L501.0250 #### [facility] [address] [place], [address] Hemoglobin (Bld) [Mass/Vol] 11.0 g/dL Low 12.0-15.0 [facility] Comment on above: Performed By: #### L 100.0100, L509.8002, L3890.6006, L501.0250 #### [facility] [address] [place], [address] IG% 0.400 Normal 0.0-0.9 [facility] Comment on above: Result Comment: IG% - Immature Granulocytes (promyelocytes, myelocytes and metamyelocytes) > 1% indicates that a LEFT SHIFT is Present. Performed By: #### L 100.0100, L509.8002, L3890.6006, L501.0250 #### [facility] [address] [place], [address] Lymphocytes/100 WBC (Bld) 14.9 % Low 19-41 [facility] Comment on above: Performed By: #### L 100.0100, L509.8002, L3890.6006, L501.0250 #### [facility] [address] [place], [address] MCH (RBC) [Entitic mass] 31.5 pg Normal 27.0-32.0 [facility] Comment on above: Performed By: #### L 100.0100, L509.8002, L3890.6006, L501.0250 #### [facility] [address] [place], [address] MCHC (RBC) [Mass/Vol] 34.5 g/dL Normal 32-36 [facility] Comment on above: Performed By: #### L 100.0100, L509.8002, L3890.6006, L501.0250 #### [facility] [address] [place], [address] MCV (RBC) [Entitic vol] 91.4 fL Normal 81-99 [facility] Comment on above: Performed By: #### L 100.0100, L509.8002, L3890.6006, L501.0250 #### [facility] [address] [place], [address] Monocytes/100 WBC (Bld) 6.5 % Normal 0-10 [facility] Comment on above: Performed By: #### L 100.0100, L509.8002, L3890.6006, L501.0250 #### [facility] [address] [place], [address] Neutrophils/100 WBC (Bld) 77.3 % High 47-70 [facility] Comment on above: Performed By: #### L 100.0100, L509.8002, L3890.6006, L501.0250 #### [facility] [address] [place], [address] Nucleated RBC (Bld) [#/Vol] 0 10*3/uL Normal 0-5 [facility] Comment on above: Performed By: #### L 100.0100, L509.8002, L3890.6006, L501.0250 #### [facility] [address] [place], [address] Platelet mean volume (Bld) [Entitic vol] 10.2 fL Normal 6.2-12.0 [facility] Comment on above: Performed By: #### L 100.0100, L509.8002, L3890.6006, L501.0250 #### [facility] [address] [place], [address] Platelets (Bld) [#/Vol] 210 10*3/uL Normal 150-450 [facility] Comment on above: Performed By: #### L 100.0100, L509.8002, L3890.6006, L501.0250 #### [facility] [address] [place], [address] RBC (Bld) [#/Vol] 3.49 10*6/uL Low 4.2-5.4 [facility] Comment on above: Performed By: #### L 100.0100, L509.8002, L3890.6006, L501.0250 #### [facility] [address] [place], [address] RDW SD 44.2 fl High 35.1-43.9 [facility] Comment on above: Performed By: #### L 100.0100, L509.8002, L3890.6006, L501.0250 #### [facility] [address] [place], [address] WBC (Bld) [#/Vol] 8.1 10*3/uL Normal 4.4-11.0 [facility] Comment on above: Performed By: #### L 100.0100, L509.8002, L3890.6006, L501.0250 #### [facility] [address] [place], [place], [address] Eosinophil percentageOrdered By: Kya Stapleton on 10-11-2024 Eosinophils/100 WBC (Bld) 0.7 % 0-5 [facility] Erythrocyte distribution wid th (RBC) [Ratio]Ordered By: Kya Stapleton on 10-11-2024 Erythrocyte distribution width (RBC) [Entitic vol] 44.2 fL High 35.1-43.9 [facility] Erythrocyte distribution wid th ratioOrdered By: Kya Stapleton on 10-11-2024 Erythrocyte distribution width (RBC) [Ratio] 13.3 % 11.6-14.6 [facility] Erythrocyte distribution wid th standard deviationOrdered By: Kya Stapleton on 10-11-2024 Erythrocyte distribution width (RBC) [Ratio] 44.2 fl High 35.1-43.9 [facility] Glucose Challenge Gest 1H 50 pedro 10-11-2024 GLU GEST 50g 1H 123 mg/dL Normal 70-140 [facility] Comment on above: Performed By: #### L 100.0100, L509.8002, L3890.6006, L501.0250 #### [facility] [address] [place], [address] Glucose measurement at 2 lula rs post-dose gestational glucose tolerance testOrdered By: Kya Stapleton on 10-11-2024 Glucose [Mass/Vol] 123 mg/dL 70-140 [facility] Hematocrit Auto (Bld) [Volum e fraction]Ordered By: Kya Stapleton on 10-11-2024 Hematocrit (Bld) [Volume fraction] 31.9 % Low 37-47 [facility] Hemoglobin measurementOrdere d By: Kya Stapleton on 10-11-2024 Hemoglobin (Bld) [Mass/Vol] 11.0 g/dL Low 12.0-15.0 [facility] Immature granulocytes/100 WB C Auto (Bld)Ordered By: Kya Stapleton on 10-11-2024 Immature granulocytes/100 WBC (Bld) 0.400 % 0.0-0.9 [facility] Comment on above: IG% - Immature Granu locytes (promyelocytes, myelocytes and metamyelocytes) > 1% indicates that a LEFT SHIFT is Present. L3890.6006on 10-11-2024 HIV Non-Reactive Normal Nonreactive [facility] Comment on above: Result Comment: Non- Reactive Reactive Repeatedly reactive samples must be confirmed according to CDC recommended confirmatory algorithms. The subresults for either HIVAG or AHIV can be used as an aid in the selection of the confirmation algorithm for reactive samples. Send out specimens with Reactive results to [facility] for confirmation. Order the HIV antibody detection and differentiation: lc#[id number] Performed By: #### L 100.0100, L3890.6100, L3890.6005, L509.8000, L509.4005, BTS, L3890.6300 #### [facility] [address] [place], [place], [address] L509.8002on 10-11-2024 Syphilis Abs Non-Reactive Normal Nonreactive [facility] Comment on above: Performed By: #### L 100.0100, L3890.6100, L3890.6005, L509.8000, L509.4005, BTS, L3890.6300 #### [facility] [address] [place], [address] Laboratory - Chemistry and C hemistry - challengeOrdered By: hSeryl Kern on 10-11-2024 Glucose Ql (U) Negative [facility] - UrinalysisOrder ed By: Sheryl Kern on 10-11-2024 Protein Ql (U) Negative [facility] Lymphocytes Auto (Unsp spec) [#/Vol]Ordered By: Kya Stapleton on 10-11-2024 Lymphocytes (Bld) [#/Vol] 1.21 10*3/uL 0.83-4.51 [facility] Lymphocytes/100 WBC Auto (Un sp spec)Ordered By: Kya Stapleton on 10-11-2024 Lymphocytes/100 WBC (Bld) 14.9 % Low 19-41 [facility] MCV (mean corpuscular volume ) determinationOrdered By: Kya Stapleton on 10-11-2024 MCV (RBC) [Entitic vol] 91.4 fL 81-99 [facility] Mean corpuscular hemoglobin (MCH) determinationOrdered By: Kya Stapleton on 10-11-2024 MCH (RBC) [Entitic mass] 31.5 pg 27.0-32.0 [facility] Mean corpuscular hemoglobin concentration (MCHC) determinationOrdered By: Kya Stapleton on 10-11-2024 MCHC (RBC) [Mass/Vol] 34.5 g/dL 32-36 [facility] Mean platelet volume determi nationOrdered By: Kya Stapleton on 10-11-2024 Platelet mean volume (Bld) [Entitic vol] 10.2 fL 6.2-12.0 [facility] Monocyte percentageOrdered B y: Kya Stapleton on 10-11-2024 Monocytes/100 WBC (Bld) 6.5 % 0-10 [facility] Neutrophil percentageOrdered By: Kya Stapleton on 10-11-2024 Neutrophils/100 WBC (Bld) 77.3 % High 47-70 [facility] No Panel InformationOrdered By: Kya Stapleton on 10-11-2024 HIV (1&2) Antibody Non-Reactive Nonreactive [facility] Comment on above: Non-ReactiveReactive Repeatedly reactive samples must be confirmed according to CDC recommended confirmatory algorithms. The subresults for either HIVAG or AHIV can be used as an aid in the selection of the confirmation algorithm for reactive samples.Send out specimens with Reactive results to [facility] for confirmation.Order the HIV antibody detection and differentiation: #[id number] Nucleated red blood cell per centageOrdered By: Kya Stapleton on 10-11-2024 Nucleated RBC/100 WBC (Bld) [Ratio] 0 % 0-5 [facility] Clerical Adjudicator Office Visit Reporton 10-11-2024 Clerical Adjudicator Office Visit Report [facility], [address] [place] [address] OFFICE VISIT Date of Service: 10/11/24 MR#: [id number] Acct: [id number] Name: CALLUM CABALLERO Rep #: [id number] : 1995 Provider: AJIT guerra Age/Sex: 29/F [place] [facility] [place]: Signed Intake Vital Signs 07/22/24 08:44 09/13/24 13:49 10/11/24 13:11 Height 5 ft 6 in 5 ft 6 in 5 ft 6 in Weight: 162 lb BMI 26.1 BP 108/66 Intake Visit Reasons: 27 WK OB/GLUCOSE Chief Complaint: 27 Week OB/Glucose Rug Sample Beveler Required: No Is patient in pain?: No Allergies No Known Allergies Allergy (Verified 10/11/24 13:12) Medications ???Medication ???Instructions ???Recorded ???Confirmed ???Type multivit-min no.71-iron fum 28 cap PO 06/07/24 10/11/24 History mg-folate no.1 1 mg-dha 300 mg capsule (PNV-[place]) Last Menstrual Period: 04/02/24 Zika: Zika virus [...] physical activity do you participate in: none jacob/amish: Sikhism seatbelt use: always do you feel safe at home: Yes 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 ??-???- JV- CRL maurcie ures just under 4cm and consistent with LMP. They are undecided about NIPT but will do first trimester labs today. 07/22/24 -???-???-???-???-???- ???-???-???-???-???-? ??-???- 15w 6d 156 lb 108/57 Negative -???-???-???-???-???- ???-???-???-???-???-? ??-???- Negative 160 -???-???-???-???-???- ???-???-???-???-???-? 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 no concerns US ordered. 08/16/24 -???-???-???-???-???- [...] 10/11/24 - (more content not included)... Normal [facility] Platelet countOrdered By: Magan Stapleton on 10-11-2024 Platelets (Bld) [#/Vol] 210 10*3/uL 150-450 [facility] RBC Auto (Bld) [#/Vol]Ordere d By: Kya Stapleton on 10-11-2024 RBC (Bld) [#/Vol] 3.49 10*6/uL Low 4.2-5.4 [facility] Serum Varicella zoster virus IgG antibody assay by immunoassay (units/volume)Ordered By: Sheryl Kern on 10-11-2024 VZV IgG IA Qn (S) See comment [facility] Comment on above: RESULT: REACTIVEPl ease note reference interval changeA Reactive result is considered evidence of immunity toVZV. Reactive indicates that VZV IgG was detectedconsistent with previous infection and/or vaccination.A Non Reactive result indicates that VZV IgG was notdetected suggesting that immunity has not been acquired.Performed at: [facility] [id number] Director: Demian Carter PhD, Phone: [phone] T. pallidum abOrdered By: Magan Stapleton on 10-11-2024 Syphilis Total Antibody Non-Reactive Nonreactiv e [facility] VZV IgG IA Qn (S)Ordered By: Sheryl Kern on 10-11-2024 Varicella-Zoster IgG Antibody See comment [facility] Comment on above: RESULT: REACTIVEPl ease note reference interval changeA Reactive result is considered evidence of immunity toVZV. Reactive indicates that VZV IgG was detectedconsistent with previous infection and/or vaccination.A Non Reactive result indicates that VZV IgG was notdetected suggesting that immunity has not been acquired.Performed at: [facility] [id number] Director: Demian Carter PhD, Phone: [phone] White blood cell (WBC) count Ordered By: Kya Stapleton on 10-11-2024 WBC (Bld) [#/Vol] 8.1 10*3/uL 4.4-11.0 [facility] Laboratory - Chemistry and C hemistry - challengeOrdered By: Kya Stapleton on 09-13-2024 Glucose Ql (U) Negative [facility] Laboratory - UrinalysisOrder ed By: Kya Stapleton on 09-13-2024 Protein Ql (U) Negative [facility] Clerical Adjudicator Office Visit Reporton 09-13-2024 Clerical Adjudicator Office Visit Report [facility] [address], [address] [place] [address] OFFICE VISIT Date of Service: 09/13/24 MR#: [id number] Acct: [id number] Name: CALLUM CABALLERO Rep #: [id number] : 1995 Provider: DYLON Parker ams Age/Sex: 29/F [place] [facility] [place]: Signed Intake Vital Signs 07/22/24 08:44 08/16/24 14:46 09/13/24 13:49 Height 5 ft 6 in 5 ft 6 in 5 ft 6 in Weight: 158 lb 4 oz 166 lb BMI 25.5 26.8 BP 107/64 114/69 Intake Visit Reasons: 23 WK OB Chief Complaint: 23 Week 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 Is patient in pain?: No Allergies No Known Allergies Allergy (Verified 09/13/24 13:49) Medications ???Medication ???Instructions ???Recorded ???Confirmed ???Type multivit-min no.71-iron fum 28 cap PO 06/07/24 09/13/24 History mg-folate no.1 1 mg-dha 300 mg capsule (PNV-[place]) Last Menstrual Period: 04/02/24 Zika: Zika virus [...] physical activity do you participate in: none jacob/amish: Sikhism seatbelt use: always do you feel safe at home: Yes 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 no concerns US ordered. 08/16/24 -???-???-???-???-???- [...] First Trimester: (more content not included)... Normal [facility] OB Anatomy w/ Transvaginalon 08-23-2024 OB Anatomy w/ Transvaginal [facility] [address] [place] [address] OB Anatomy w/ Transvaginal MR#: [id number] Acct: [id number] Name: CALLUM CABALLERO Rep #: [id number] : 1995 F 29 From: Panfilo Jenkins i DO PCP: Care Physician,No Primary Status: [facility] Study: OB Anatomy w/ Transvaginal Date of Exam: 08/23 Exam# [id number] Ordering Dr: Kya Stapleton CNM PROCEDURE: ultrasound. [...] CC: DYLON Stapleton; No Primary Care Physician D[employer] Services Director: Signed Normal [facility] Laboratory - Chemistry and C hemistry - challengeOrdered By: Evelia Catalan on 08-16-2024 Glucose Ql (U) Negative [facility] Laboratory - UrinalysisOrder ed By: Evelia Catalan on 08-16-2024 Protein Ql (U) Negative [facility] Clerical Adjudicator Office Visit Reporton 08-16-2024 Clerical Adjudicator Office Visit Report [facility] [address], [address] [place] [address] OFFICE VISIT Date of Service: 08/16/24 MR#: [id number] Acct: [id number] Name: CALLUM CABALLERO Rep #: [id number] : 1995 Provider: Dr. Evelia ramirez MD Age/Sex: 29/F [place] [facility] [place] Status: Signed Intake Vital Signs 06/17/24 10:23 07/22/24 08:44 08/16/24 14:46 Height 5 ft 6 in 5 ft 6 in 5 ft 6 in Weight: 158 lb 4 oz BMI 25.5 BP 107/64 Intake Visit Reasons: 19 wk ob Chief Complaint: 19 Week 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 Is patient in pain?: No Allergies No Known Allergies Allergy (Verified 08/16/24 14:52) Medications ???Medication ???Instructions ???Recorded ???Confirmed ???Type multivit-min no.71-iron fum 28 cap PO 06/07/24 08/16/24 History mg-folate no.1 1 mg-dha 300 mg capsule (PNV-[place]) Last Menstrual Period: 04/02/24 Zika: Zika virus [...] physical activity do you participate in: none jacob/amish: Sikhism seatbelt use: always do you feel safe at home: Yes 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 no concerns US ordered. 08/16/24 -???-???-???-???-???- [...] Care C (more content not included)... Normal [facility] - Chemistry and C hemistry - challengeon 07-22-2024 Glucose Ql (U) Negative [facility] Laboratory - Urinalysison Protein Ql (U) Negative [facility] Clerical Adjudicator Office Visit Reporton 07-22-2024 Clerical Adjudicator Office Visit Report [facility] [place] [address] [place] [address], [address] [place] [address] OFFICE VISIT Date of Service: 07/22/24 MR#: [id number] Acct: [id number] Name: CALLUM CABALLERO Rep #: [id number] : 1995 Provider: DYLON Parker ams Age/Sex: 29/F [place] [facility] [place]: Signed Intake Vital Signs 06/17/24 10:23 07/22/24 08:42 07/22/24 08:44 Height 5 ft 6 in 5 ft 6 in 5 ft 6 in Weight: 152 lb 8 oz 156 lb BMI 24.6 25.2 BP 125/65 H 108/57 L Intake Visit Reasons: 15wk 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 Is patient in pain?: No Allergies No Known Allergies Allergy (Verified 07/22/24 08:43) Medications ???Medication ???Instructions ???Recorded ???Confirmed ???Type multivit-min no.71-iron fum 28 cap PO 06/07/24 07/22/24 History mg-folate no.1 1 mg-dha 300 mg capsule (PNV-[place]) Last Menstrual Period: 04/02/24 Zika: Zika virus [...] physical activity do you participate in: none jacob/amish: Sikhism seatbelt use: always do you feel safe at home: Yes 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 ??-???- 160 -???-???-???-???-???- ???-???-???-???-???-? 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 no concerns US ordered. ACOG First [...] additional compla (more content not included)... Normal [facility] PAP I-G w/rfx hrHPV-Aptimaon 06-25-2024 ADEQ Comment Normal . [facility] Comment on above: Order Comment: Reaso n for Exam: Result Comment: Sati sfactory for evaluation. Endocervical and/or squamous metaplastic cells (endocervical component) are present. Performed By: #### L 100.0100, L3890.6100, L3890.6005, L509.8000, L509.4005, BTS, L3890.6300 #### [facility] [address] [place], [place], [address] COMM . Normal . [facility] Comment on above: Order Comment: Reaso n for Exam: Performed By: #### L 100.0100, L3890.6100, L3890.6005, L509.8000, L509.4005, BTS, L3890.6300 #### [facility] [address] [place], [address] COMMENT Comment Normal . [facility] Comment on above: Order Comment: Reaso n for Exam: Result Comment: This liquid based ThinPrep(R) pap test was screened with the use of an image guided system. Performed By: #### L 100.0100, L3890.6100, L3890.6005, L509.8000, L509.4005, BTS, L3890.6300 #### [facility] [address] [place], [address] DIAG Comment Normal . [facility] Comment on above: Order Comment: Reaso n for Exam: Result Comment: NEGA TIVE FOR INTRAEPITHELIAL LESION OR MALIGNANCY. CELLULAR CHANGES ASSOCIATED WITH INFLAMMATION ARE PRESENT. THIS SPECIMEN WAS RESCREENED PART OF OUR FUR MIXER OPERATOR PROGRAM. Performed By: #### L 100.0100, L3890.6100, L3890.6005, L509.8000, L509.4005, BTS, L3890.6300 #### [facility] [address] [place], [address] HPV RFLX Comment Normal . [facility] Comment on above: Order Comment: Reaso n for Exam: Result Comment: The HPV DNA reflex criteria were not met with this specimen result therefore, no HPV testing was performed. Performed at: [facility] - [facility] [employer] [address], [place], [place] [id number] Helper Driver: Kenny Reeder MD, Phone: [phone] Performed at: [address], [place] [id number] Helper Driver: Mary Alice Pizano MD, Phone: [phone] Performed By: #### L 100.0100, L3890.6100, L3890.6005, L509.8000, L509.4005, BTS, L3890.6300 #### [facility] [address] [place], [place], [address] PAPSMR Comment Normal . [facility] Comment on above: Order Comment: Reaso n [...] L3890.6100, L3890.6005, L509.8000, L509.4005, BTS, L3890.6300 #### [facility] [address] [place], [place], [address] PERFORM Comment Normal . [facility] Comment on above: Order Comment: Reaso n for Exam: Result Comment: Alicja Vargas Display Designer Outside (ASCP) Performed By: #### L 100.0100, L3890.6100, L3890.6005, L509.8000, L509.4005, BTS, L3890.6300 #### [facility] [address] [place], [place], [address] QC REV Comment Normal . [facility] Comment on above: Order Comment: Reaso n for Exam: Result Comment: Mikel Stapleton Display Designer Outside (ASCP) Performed By: #### L 100.0100, L3890.6100, L3890.6005, L509.8000, L509.4005, BTS, L3890.6300 #### [facility] [address] [place], [address] Chlamydia/GC BATOOL aptimaon CHLAMY,NUC ACID Negative Normal Negative [facility] Comment on above: Performed By: #### L 100.0100, L3890.6100, L3890.6005, L509.8000, L509.4005, BTS, L3890.6300 #### [facility] [address] [place], [address] GC BY NUC ACID Negative Normal Negative [facility] Comment on above: Result Comment: Perf ormed at: =G - [facility] [address] [id number] Helper Driver: Mary Alice Pizano MD, Phone: [phone] Performed By: #### L 100.0100, L3890.6100, L3890.6005, L509.8000, L509.4005, BTS, L3890.6300 #### [facility] [address] [place], [address] Urine Cultureon 06-18-2024 [facility] Culture exhibits no growth. Normal [facility] Comment on above: Performed By: #### L 100.0100, L3890.6100, L3890.6005, L509.8000, L509.4005, BTS, L3890.6300 #### [facility] [address] [place], [address] CBC W/Diff, Automatedon 12 Absolute Lymph 1.63 X10 3/uL Normal 0.83-4.51 [facility] Comment on above: Performed By: #### L 100.0100, L3890.6100, L3890.6005, L509.8000, L509.4005, BTS, L3890.6300 #### [facility] [address] [place], [address] Absolute Neut 6.9 X10 3/uL Normal 2.0-7.7 [facility] Comment on above: Performed By: #### L 100.0100, L3890.6100, L3890.6005, L509.8000, L509.4005, BTS, L3890.6300 #### [facility] [address] [place], [address] Basophils/100 WBC (Bld) 0.4 % Normal 0-1 [facility] Comment on above: Performed By: #### L 100.0100, L3890.6100, L3890.6005, L509.8000, L509.4005, BTS, L3890.6300 #### [facility] [address] [place], [address] Eosinophils/100 WBC (Bld) 1.6 % Normal 0-5 [facility] Comment on above: Performed By: #### L 100.0100, L3890.6100, L3890.6005, L509.8000, L509.4005, BTS, L3890.6300 #### [facility] [address] [place], [address] Erythrocyte distribution width (RBC) [Ratio] 14.0 % Normal 11.6-14.6 [facility] Comment on above: Performed By: #### L 100.0100, L3890.6100, L3890.6005, L509.8000, L509.4005, BTS, L3890.6300 #### [facility] [address] [place], [address] Hematocrit (Bld) [Volume fraction] 35.6 % Low 37-47 [facility] Comment on above: Performed By: #### L 100.0100, L3890.6100, L3890.6005, L509.8000, L509.4005, BTS, L3890.6300 #### [facility] [address] [place], [address] Hemoglobin (Bld) [Mass/Vol] 11.5 g/dL Low 12.0-15.0 [facility] Comment on above: Performed By: #### L 100.0100, L3890.6100, L3890.6005, L509.8000, L509.4005, BTS, L3890.6300 #### [facility] [address] [place], [address] IG% 0.200 Normal 0.0-0.9 [facility] Comment on above: Result Comment: IG% - Immature Granulocytes (promyelocytes, myelocytes and metamyelocytes) > 1% indicates that a LEFT SHIFT is Present. Performed By: #### L 100.0100, L3890.6100, L3890.6005, L509.8000, L509.4005, BTS, L3890.6300 #### [facility] [address] [place], [address] Lymphocytes/100 WBC (Bld) 17.5 % Low 19-41 [facility] Comment on above: Performed By: #### L 100.0100, L3890.6100, L3890.6005, L509.8000, L509.4005, BTS, L3890.6300 #### [facility] [address] [place], [address] MCH (RBC) [Entitic mass] 29.3 pg Normal 27.0-32.0 [facility] Comment on above: Performed By: #### L 100.0100, L3890.6100, L3890.6005, L509.8000, L509.4005, BTS, L3890.6300 #### [facility] [address] [place], [address] MCHC (RBC) [Mass/Vol] 32.3 g/dL Normal 32-36 [facility] Comment on above: Performed By: #### L 100.0100, L3890.6100, L3890.6005, L509.8000, L509.4005, BTS, L3890.6300 #### [facility] [address] [place], [address] MCV (RBC) [Entitic vol] 90.8 fL Normal 81-99 [facility] Comment on above: Performed By: #### L 100.0100, L3890.6100, L3890.6005, L509.8000, L509.4005, BTS, L3890.6300 #### [facility] [address] [place], [address] Monocytes/100 WBC (Bld) 6.8 % Normal 0-10 [facility] Comment on above: Performed By: #### L 100.0100, L3890.6100, L3890.6005, L509.8000, L509.4005, BTS, L3890.6300 #### [facility] [address] [place], [address] Neutrophils/100 WBC (Bld) 73.5 % High 47-70 [facility] Comment on above: Performed By: #### L 100.0100, L3890.6100, L3890.6005, L509.8000, L509.4005, BTS, L3890.6300 #### [facility] [address] [place], [address] Nucleated RBC (Bld) [#/Vol] 0 10*3/uL Normal 0-5 [facility] Comment on above: Performed By: #### L 100.0100, L3890.6100, L3890.6005, L509.8000, L509.4005, BTS, L3890.6300 #### [facility] [address] [place], [address] Platelet mean volume (Bld) [Entitic vol] 10.1 fL Normal 6.2-12.0 [facility] Comment on above: Performed By: #### L 100.0100, L3890.6100, L3890.6005, L509.8000, L509.4005, BTS, L3890.6300 #### [facility] [address] [place], [address] Platelets (Bld) [#/Vol] 231 10*3/uL Normal 150-450 [facility] Comment on above: Performed By: #### L 100.0100, L3890.6100, L3890.6005, L509.8000, L509.4005, BTS, L3890.6300 #### [facility] [address] [place], [address] RBC (Bld) [#/Vol] 3.92 10*6/uL Low 4.2-5.4 [facility] Comment on above: Performed By: #### L 100.0100, L3890.6100, L3890.6005, L509.8000, L509.4005, BTS, L3890.6300 #### [facility] [address] [place], [address] RDW SD 46.3 fl High 35.1-43.9 [facility] Comment on above: Performed By: #### L 100.0100, L3890.6100, L3890.6005, L509.8000, L509.4005, BTS, L3890.6300 #### [facility] [address] [place], [address] WBC (Bld) [#/Vol] 9.3 10*3/uL Normal 4.4-11.0 [facility] Comment on above: Performed By: #### L 100.0100, L3890.6100, L3890.6005, L509.8000, L509.4005, BTS, L3890.6300 #### [facility] [address] [place], [place], [address] HIV - WCHon 06-17-2024 HIV Non-Reactive Normal Nonreactive [facility] Comment on above: Order Comment: Reaso n for Exam: Performed By: #### L 100.0100, L3890.6100, L3890.6005, L509.8000, L509.4005, BTS, L3890.6300 #### [facility] [address] [place], [address] Hepatitis B Surface Antigeno n 06-17-2024 HEP B Surf Ag Non-Reactive Normal Nonreactive [facility] Comment on above: Order Comment: Reaso n for Exam: Performed By: #### L 100.0100, L3890.6100, L3890.6005, L509.8000, L509.4005, BTS, L3890.6300 #### [facility] [address] [facility] [place], [place], [address] Hepatitis C Antibodyon 06-17 Hepatitis C AB [facility]active [facility] Comment on above: Order Comment: Reaso n for Exam: Result Comment: Non Reactive: < 0.8 Equivocal: >/= 0.8 to < 1.0 Reactive: >/= 1.0 The CDC requires that a reactive/equivocal HCV antibody result be sent out for confirmation. HCV Quant by PCR testing. Performed By: #### L 100.0100, L3890.6100, L3890.6005, L509.8000, L509.4005, BTS, L3890.6300 #### [facility] [address] [place], [address] L509.8000on 06-17-2024 Syphilis Abs Non-Reactive Normal [facility] Comment on above: Order Comment: Reaso n for Exam: Performed By: #### L 100.0100, L3890.6100, L3890.6005, L509.8000, L509.4005, BTS, L3890.6300 #### [facility] [place], [address] Clerical Adjudicator Office Visit Reporton 06-17-2024 Clerical Adjudicator Office Visit Report [facility] [place] [address] [facility], [address] [place] [address] OFFICE VISIT Date of Service: 06/17/24 MR#: [id number] Acct: [id number] Name: CALLUM CABALLERO Rep #: [id number] : 1995 Provider: Dr. Ellie Kwan DO Age/Sex: 29/F [place] [facility] [place]: Signed Intake Vital Signs 06/17/24 10:23 Height 5 ft 6 in Weight: 152 lb 8 oz BMI 24.6 BP 125/65 H Intake Visit Reasons: NEW 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 Is patient in pain?: No Allergies No Known Allergies Allergy (Verified 06/17/24 10:19) Medications ???Medication ???Instructions ???Recorded ???Confirmed ???Type multivit-min no.71-iron fum 28 cap PO 06/07/24 06/17/24 History mg-folate no.1 1 mg-dha 300 mg capsule (PNV-[place]) Last Menstrual Period: 04/02/24 Zika: Zika virus [...] physical activity do you participate in: none jacob/amish: Sikhism seatbelt use: always do you feel safe at home: Yes 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 Normal [facility] Rubella IgGon 06-17-2024 Rubella IgG Non-Reactive Normal Nonreactive [facility] Comment on above: Order Comment: Reaso n for Exam: Result Comment: Anti body Results Interpretation of Immune Status Non Reactive Presumed Non-Immune Equivocal Equivocal Reactive Presumed Immune Performed By: #### L 100.0100, L3890.6100, L3890.6005, L509.8000, L509.4005, BTS, L3890.6300 #### [facility] [address] [place], [address] Type AND Screenon 06-17-2024 ABO and Rh group Nom (Bld) Blood group A Rh(D) positive Normal [facility] Comment on above: Order Comment: PN Performed By: #### L 100.0100, L3890.6100, L3890.6005, L509.8000, L509.4005, BTS, L3890.6300 #### [facility] [address] [place], [address] Vital Signs Date Time Vital Sign Value Performing Clinician Faci lity 12-26-2024 12:50-0400 Body height 167.64 cm No Primary Care Physician [facility] 12-26-2024 12:50-0400 Body mass index (BMI) [Ratio] 28.3 kg/m2 No Primary Care Physician [facility] 12-26-2024 12:50-0400 Body weight 79.49 kg No Primary Care Physician [facility] 12-26-2024 12:50-0400 Diastolic blood pressure 78 mm[Hg] No Primary Care Physician [facility] 12-26-2024 12:50-0400 Systolic blood pressure 120 mm[Hg] No Primary Care Physician [facility] 12-20-2024 13:52-0400 Body height 167.64 cm Kya Stapleton CNM Work Phone: [facility] 12-20-2024 13:52-0400 Body mass index (BMI) [Ratio] 28.4 kg/m2 Kya Stapleton CNM Work Phone: [facility] 12-20-2024 13:52-0400 Body weight 80 kg Kya Stapleton CNM Work Phone: [facility] 12-20-2024 13:52-0400 Diastolic blood pressure 74 mm[Hg] Kya Stapleton CNM Work Phone: [facility] 12-20-2024 13:52-0400 Systolic blood pressure 116 mm[Hg] Kya Stapleton CNM Work Phone: [facility] 12-06-2024 14:37-0400 Body mass index (BMI) [Ratio] 27.9 kg/m2 Kya Stapleton CNM Work Phone: [facility] 12-06-2024 14:37-0400 Body weight 78.58 kg Kya Stapleton CNM Work Phone: [facility] 12-06-2024 14:37-0400 Diastolic blood pressure 82 mm[Hg] Kya Stapleton CNM Work Phone: [facility] 12-06-2024 14:37-0400 Systolic blood pressure 127 mm[Hg] Kya Stapleton CNM Work Phone: [facility] 11-11-2024 10:49-0400 Body mass index (BMI) [Ratio] 27.1 kg/m2 Kya Stapleton CNM Work Phone: [facility] 11-11-2024 10:49-0400 Body weight 76.43 kg Kya Stapleton CNM Work Phone: [facility] 11-11-2024 10:49-0400 Diastolic blood pressure 69 mm[Hg] Kya Stapleton CNM Work Phone: [facility] 11-11-2024 10:49-0400 Systolic blood pressure 105 mm[Hg] Kya Stapleton CNM Work Phone: [facility] 10-25-2024 15:02-0400 Body mass index (BMI) [Ratio] 26.9 kg/m2 Kya Stapleton CNM Work Phone: [facility] 10-25-2024 15:02-0400 Body weight 75.86 kg Kya Stapleton CNM Work Phone: [facility] 10-25-2024 15:02-0400 Diastolic blood pressure 78 mm[Hg] Kya Stapleton CNM Work Phone: [facility] 10-25-2024 15:02-0400 Systolic blood pressure 117 mm[Hg] Kya Stapleton CNM Work Phone: [facility] 10-11-2024 13:11-0400 Body height 167.64 cm Kya Stpaleton CNM Work Phone: [facility] 10-11-2024 13:11-0400 Body mass index (BMI) [Ratio] 26.1 kg/m2 Kya Stapleton CNM Work Phone: [facility] 10-11-2024 13:11-0400 Body weight 73.48 kg Kya Stapleton CNM Work Phone: [facility] 10-11-2024 13:11-0400 Diastolic blood pressure 66 mm[Hg] Kya Stapleton CNM Work Phone: [facility] 10-11-2024 13:11-0400 Systolic blood pressure 108 mm[Hg] Kya Stapleton CNM Work Phone: [facility] 09-13-2024 13:49-0500 Body mass index (BMI) [Ratio] 26.8 kg/m2 Kya Stapleton CNM Work Phone: [facility] 09-13-2024 13:49-0500 Body weight 75.29 kg Kya Stapleton CNM Work Phone: [facility] 09-13-2024 13:49-0500 Diastolic blood pressure 69 mm[Hg] Kya Stapleton CNM Work Phone: [facility] 09-13-2024 13:49-0500 Systolic blood pressure 114 mm[Hg] Kya Stapleton CNM Work Phone: [facility] 08-16-2024 14:46-0500 Body mass index (BMI) [Ratio] 25.5 kg/m2 Kya Stapleton CNM Work Phone: [facility] 08-16-2024 14:46-0500 Body weight 71.78 kg Kya Stapleton CNM Work Phone: [facility] 08-16-2024 14:46-0500 Diastolic blood pressure 64 mm[Hg] Kya Stapleton CNM Work Phone: [facility] 08-16-2024 14:46-0500 Systolic blood pressure 107 mm[Hg] Kya Stapleton CNM Work Phone: [facility] 07-22-2024 08:42-0500 Body mass index (BMI) [Ratio] 25.2 kg/m2 Kya Stapleton CNM Work Phone: [facility] 07-22-2024 08:42-0500 Body weight 70.76 kg Kya Stapleton CNM Work Phone: [facility] 07-22-2024 08:42-0500 Diastolic blood pressure 57 mm[Hg] Kya Stapleton CNM Work Phone: [facility] 07-22-2024 08:42-0500 Systolic blood pressure 108 mm[Hg] Kya Stapleton CNM Work Phone: [facility] Encounters Encounter Date Encounter Type Care Provider Facility Start: 12-26-2024 End: 12-26-2024 Patient encounter procedure Sheryl FONG -[facility] Work Phone: Start: 12-26-2024 End: 12-26-2024 ambulatory No Primary Care Physician [facility] Work Phone: Start: 12-20-2024 End: 12-20-2024 ambulatory No Primary Care Physician [facility] Work Phone: Start: 12-20-2024 End: 12-20-2024 Patient encounter procedure Jill Sethi CNM -[facility] Work Phone: Start: 12-20-2024 End: 12-20-2024 Patient encounter procedure Jill MOSELEYM -[facility] Work Phone: Start: 12-20-2024 End: 12-20-2024 ambulatory Kya Stapleton CNM Work Phone: [facility] Work Phone: Start: 12-20-2024 End: 12-20-2024 ambulatory Jill Sethi Facility:[facility] Start: 12-06-2024 End: 12-06-2024 Patient encounter procedure Kya MOSELEYM -[facility] Work Phone: Start: 12-06-2024 End: 12-06-2024 ambulatory Kya Stapleton Facility:[facility] Start: 11-11-2024 End: 11-11-[address] Ellie Rodríguez DO -[facility] Work Phone: Start: 11-11-2024 End: 11-11-2024 ambulatory Ellie Rodríguez Facility:[facility] Start: 10-25-2024 End: 10-25-[address] Evelia Catalan MD -[facility] Work Phone: Start: 10-25-2024 End: 10-25-2024 ambulatory Evelia Catalan Facility:[facility] Start: 10-11-2024 End: 10-11-2024 Patient encounter procedure Sheryl Kern SORT SUPERVISOR-C -[facility] Work Phone: Start: 10-11-2024 End: 10-11-2024 ambulatory Kya Stapleton CNM Work Phone: [facility] Work Phone: Start: 10-11-2024 End: 10-11-2024 ambulatory No Primary Care Physician Facility:[facility] Start: 09-13-2024 End: 09-13-2024 Patient encounter procedure Kya Stapleton CNM -[facility] Work Phone: Start: 09-13-2024 End: 09-13-2024 ambulatory No Primary Care Physician Facility[place] Start: 08-23-2024 End: 08-23-2024 Patient encounter procedure Kya Stapleton CNM -[facility] Work Phone: Start: 08-23-2024 End: 08-23-2024 ambulatory No Primary Care Physician Facility:[facility] Start: 08-16-2024 End: 08-16-[address] Evelia Catalan MD -[facility] Work Phone: Start: 08-16-2024 End: 08-16-2024 ambulatory Evelia Catalan Facility[place] Start: 07-22-2024 End: 07-22-2024 Patient encounter procedure Kya Stapleton CNM -[facility] Work Phone: Start: 07-22-2024 End: 07-22-2024 ambulatory Kya Stapleton Facility:[facility] Start: 06-17-2024 End: 06-17-2024 ambulatory Elliefrancine Riggins Prasanth Facility:[facility] Start: 06-17-2024 End: 06-17-2024 [facility] Procedures Date Procedure Procedure Detail Performing Clinician [...] of Treatment Date Care Activity Detail Author [facility] Payers Date Payer Category Payer Unknown [id number] 2024 Unknown [id number] 2024 Self-pay Unknown [id number] 2.16.8 [id number] Unknown [id number] 2.16.8 [id number] Unknown [id number] 2.16.8 [id number] Unknown [id number] 2.16.8 [id number] Unknown [id number] 2.16.8 [id number] Unknown [id number] 2.16.8 [id number] Unknown [id number] 2.16.8 [id number] Unknown [id number] 2.16.8 [id number] Unknown [id number] 2.16.8 [id number] Unknown [id number] 2.16.8 [id number] Unknown [id number] 2.16.8 [id number] Unknown [id number] 2.16.8 [id number] Unknown [id number] 2.16.8 [id number] Unknown [id number] 2.16.8 [id number] Social History Date Type Detail Facility Start: 06-07-2024 Tobacco smoking stat [facility] Never smoked tobacco (finding) [facility] Start: 10-16-2024 Sex Female (finding) [facility] Start: 1995 Sex Assigned At Female [facility] Progress note 12-20-2024 Note Date & Type Note Facility 12-20-2024 Progress note [facility] Progress note 12-20-2024 Note Date & Type Note Facility 12-20-2024 Progress note Note Date/Time December 20, 2024 2:47p m [facility] [address], [address] [place] [address] OFFICE VISIT Date of Service: 12/20/24 MR#: [id number] Acct: [id number] Name: CALLUM CABALLERO Rep #: [id number] : 1995 Provider: DYLON Sethi Age/Sex: 29/F [place] [facility] [place]: Signed Intake Vital Signs 07/22/24 08:44 12/06/24 14:37 12/20/24 13:52 Height 5 ft 6 in 5 ft 6 in 5 ft 6 in Weight: 176 lb 6 oz BMI 28.4 BP 116/74 Intake Visit Reasons: 37 WK 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 Is patient in pain?: No Allergies No Known Allergies Allergy (Verified 12/20/24 13:55) Medications ?Medication ?Instructions ?Recorded ?Confirmed ?Type multivit-min no.71-iron fum 28 cap PO 06/07/24 5 History mg-folate no.1 1 mg-dha 300 mg capsule (PNV-[place]) Last Menstrual Period: 04/02/24 Zika: Zika virus [...] physical activity do you participate in: none jacob/amish: Sikhism seatbelt use: always do you feel safe at home: Yes additional social history: - 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 G ood Fm. 28 wk labs, [facility] 10/25/24 -?-?-?-?-?-?-?-?-?-?-?-?- 29w 3d 167 [...] trimester Comment: PRR, , GAMAL 01/07/25, boy Sikhism (3) : Status: Acute Qualifiers: Weeks of [...] this visit. GA appropriate handout given. 12/20/24 [id number] <Electronically signed by Jill brandt CNM> Date _ Jill Sethi CNM Cosigner Signature: Date (if applicable) CC: ~ [facility] [employer] Work Phone: Evaluation note 09-13-2024 Note Date [...] first acute December 20, 2024 1 :50pm [facility] Work Phone: Evaluation note 09-13-2024 [...] normal first acute December 26, 2024 12:43pm [facility] Work Phone: Evaluation note 07-22-2024 Note Date [...] varicella, non-immune resolved October 11, 2024 12:58pm [facility] Work Phone: Reason for referral (narrative) Note Date & Type Note Facility Reason for referral (narrative) No reason for referral information available [facility] Work Phone: Chief Complaint and Reason for [...] 2024 2 :42pm Supervision of normal first [facility] 2024 2:42pm Maternal varicella, non-immune July 192024 2:42pm Infertility August 16, 2024 2 :42pm September 13, 2024 1:44pm Supervision of normal first [facility] 2024 1:44pm Maternal varicella, non-immune September 13, 2024 1:44pm Infertility September 13, 2024 1:44pm October 11, 2024 12: 58pm Rubella non-immune status, antepartum [facility] 2024 12:58pm Supervision of normal first [facility] 2024 12:58pm Maternal varicella, non-immune September 12:58pm [...] 13, 2024 1:44pm Supervision of normal first [facility] 2024 1:44pm Maternal varicella, non-immune September 13, 2024 1:44pm Infertility September 13, 2024 1:44pm October 11, 2024 12: 58pm Rubella non-immune status, antepartum [facility] 2024 12:58pm Supervision of normal first [facility] 2024 12:58pm Maternal varicella, non-immune September 12:58pm [...] 12: 58pm Rubella non-immune status, antepartum [facility] 2024 12:58pm Supervision of normal first [facility] 2024 12:58pm Maternal varicella, non-immune [...] 2024 1:50p m Rubella non-immune status, antepartum [facility] 2024 1:50pm Supervision of normal first [facility] 2024 1:50pm December 26, 2024 12:4 3pm Rubella non-immune status, antepartum [facility] 2024 12:43pm Supervision of normal first [facility] 2024 12:43pm Family History No Family History [...] Member Role Status Dates Sheryl Kern NP, SORT SUPERVISOR-C Attending Provider Active Start: December 26, 2024 [...] section and content) DATE CREATED AUTHOR 12/28/2024 [facility] FOR RECORDS PERTAINING TO PATIENTS WHO ARE [...] BE BASED ON THE PRIMARY CLINICAL RECORDS. [employer] provides no warranty or guarantee of the accuracy or completeness of information in this document.
[2024-12-29 18:19] LABS: Absolute Lymphocyte Count 1.28 X10^3/uL (0.83-4.51); Absolute Neutrophil Count 9.2 X10^3/uL (2.0-7.7); Basophil# 0.02 X10^3/uL; Basophil% 0.2 % (0-1); Eosinophil# 0.04 X10^3/uL; Eosinophils% 0.3 % (0-5); Hematocrit 35.4 % (37-47); Hemoglobin 12.1 g/dL (12.0-15.0); Lymphocyte # 1.28 X10^3/ul (0.83-4.51); Lymphocyte % 11.1 % (19-41); Mean Corp Hgb Conc 34.2 g/dL (32-36); Mean Corpuscular Volume 90.8 fL (81-99); Mean Platelet Vol. 10.3 fl (6.2-12.0); Monocyte# 0.92 X10^3/uL; NRBC Flagged by Analyzer 0 % (0-5); Neutrophil # 9.21 X10^3/uL (2.7-7.7); Neutrophil % 79.8 % (47-70); Platelet Count 201 K/mm3 (150-450); RBC Distribution Width CV 13.5 % (11.6-14.6); RBC Distribution Width SD 44.2 fl (35.1-43.9); White Blood Count 11.5 K/mm3 (4.4-11.0)
[2024-12-29 18:50] LABS: Syphilis Antibodies Nonreactive (Nonreactive)
--- NOTE | 2024-12-29 19:52 | HP.PCM.OB_ITS ---
HPI - General General Date of Admission: 12/29/24 HPI Narrative CALLUM CABALLERO, is a 29 F who presents at 38.5 with leaking of fluid at 330pm. Maternal Data Information GAMAL Calculator Estimated Delivery Date Method Current WG Current Estimate 01/07/25 LMP (Certain) 38w 5d Other Estimates 01/06/25 Ultrasound #1 38w 6d PFSH PFSH Home Medications ?Medication ?Instructions ?Recorded ?Last Taken ?Type multivit-min no.71-iron fum 28 cap PO 12/29/24 History mg-folate no.1 1 mg-dha 300 mg capsule (PNV-[place]) Allergy/AdvReac Type Severity Reaction Status Date / Time No Known Allergies Allergy Verified 12/29/24 18:06 Family History Aunt Cancer Maternal- not sure what kind Grandfather Cancer Paternal- prostate Colon cancer Paternal Uncle Diabetes Paternal Mother Family history of recurrent miscarriage Social History adopted: No household members: spouse 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 history of recent travel: Yes ( -April) out of state: No out of country: Yes sexually active: Yes Smoking Status: Never smoker alcohol intake: current alcohol intake frequency: holidays/special occasions only details: Not while substance use type: does not use well-balanced diet: daily or most days caffeine: No eating out: rarely or never during the past year weight has: remained stable what type of physical activity do you participate in: none jacob/rastafarian: Muslim seatbelt use: always do you feel safe at home: Yes additional social history: - 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 History 1 Elective abortions Hx Para 0 Spontaneous abortions Hx # Term Pregnancies Ectopic pregnancies Hx # Pregnancies Multiple births # of living children Visit Details Expected Delivery Route/Plan Labor Preferences- CB/BF classes: encouraged labor support person: Muslim labor intervention preferences: [] pain management options preferred: limited cut cord/dad catch: maybe : yes PP control planned: discussed discussed possible routes of delivery and associated risks: [] special requests: [] Plans Covid status: [] Flu vaccine: [] Tdap vaccine: decline Rhogam: na LARC form signed: yes Problem list reviewed and updated with the most current plan of care details and appropriate orders placed. Relevant counseling for the gestational age provided. Continue routine care and follow up unless otherwise noted in visit notes/problem list details OB Flowsheet Initial Weight: 145 lb Date -?-?-?-?-?-?-?-?-?-?-?-?- EGA Weight BP Urine Prot -?-?-?-?-?-?-?-?-?-?-?-?- Glucose FHR FuHt Pres Dilation -?-?-?-?-?-?-?-?-?-?-?-?- Effaced St Visit Note 06/17/24 -?-?-?-?-?-?-?-?-?-?-?-?- 10w 6d 152 lb 8 oz (+7 lb 8 oz) 125/65 -?-?-?-?-?-?-?-?-?-?-?-?- 168 -?-?-?-?-?-?-?-?-?-?-?-?- JV- CRL measures just under 4cm and consistent with LMP. They are undecided about NIPT but will do first trimester labs today. 07/22/24 -?-?-?-?-?-?-?-?-?-?-?-?- 15w 6d 156 lb (+11 lb) 108/57 Negative -?-?-?-?-?-?-?-?-?-?-?-?- Negative 160 -?-?-?-?-?-?-?-?-?-?-?-?- KW-no vb/elianampin g. no concerns US ordered. 08/16/24 -?-?-?-?-?-?-?-?-?-?-?-?- 19w 3d 158 lb 4 oz (+13 lb 4 oz) 107/64 Negative -?-?-?-?-?-?-?-?-?-?-?-?- Negative 145 -?-?-?-?-?-?-?-?-?-?-?-?- SM- n ovb crmapi ng aswered questions about anatomy scan and is fine with proceeding. 09/13/24 -?-?-?-?-?-?-?-?-?-?-?-?- 23w 3d 166 lb (+21 lb) 114/69 Negative -?-?-?-?-?-?-?-?-?-?-?-?- Negative 140 -?-?-?-?-?-?-?-?-?-?-?-?- KW- no vb/suzanna french. good fm. CBE classes discussed. 28 week labs discussed. 10/11/24 -?-?-?-?-?-?-?-?-?-?-?-?- 27w 3d 162 lb (+17 lb) 108/66 Negative -?-?-?-?-?-?-?-?-?-?-?-?- Negative 144 27 -?-?-?-?-?-?-?-?-?-?-?-?- MH-No VB, LOF. G ood Fm. 28 wk labs, [facility] 10/25/24 -?-?-?-?-?-?-?-?-?-?-?-?- 29w 3d 167 lb 4 oz (+22 lb 4 oz) 117/78 Negative -?-?-?-?-?-?-?-?-?-?-?-?- Negative 145 30 -?-?-?-?-?-?-?-?-?-?-?-?- SM- no vb lof go od fm no reuglar ctx 11/11/24 -?-?-?-?-?-?-?-?-?-?-?-?- 31w 6d 168 lb 8 oz (+23 lb 8 oz) 105/69 Negative -?-?-?-?-?-?-?-?-?-?-?-?- Negative 140 32 Cephalic -?-?-?-?-?-?-?-?-?-?-?-?- JV- no lof, vagi nal bleeding, or dec fm. 12/06/24 -?-?-?-?-?-?-?-?-?-?-?-?- 35w 3d 173 lb 4 oz (+28 lb 4 oz) 127/82 Negative -?-?-?-?-?-?-?-?-?-?-?-?- Negative 135 35 Cephalic -?-?-?-?-?-?-?-?-?-?-?-?- KW- no vb/lof/ct x. good fm. preferences reviewed. minimal intervention. Discussed GBS swab for next visit. 12/20/24 -?-?-?-?-?-?-?-?-?-?-?-?- 37w 3d 176 lb 6 oz (+31 lb 6 oz) 116/74 Negative -?-?-?-?-?-?-?-?-?-?-?-?- Negative 127 37 Cephalic -?-?-?-?-?-?-?-?-?-?-?-?- LC- no vb/ctx, q uestionable increased lof vs d/c ROM plus sent. gbs collected. 12/26/24 -?-?-?-?-?-?-?-?-?-?-?-?- 38w 2d 175 lb 4 oz (+30 lb 4 oz) 120/78 Negative -?-?-?-?-?-?-?-?-?-?-?-?- Negative 147 38 Cephalic 0 -?-?-?-?-?-?-?-?-?-?-?-?- MH-No VB, LOF. G ood Fm. Some irregular CTX. NST FHR Rate Baby A Baseline: 130 Variability:: Moderate Accelerations:: 15 x 15 Decelerations:: None NST Reactive:: Yes FHR Category:: Category I Uterine Activity:: q2-3 Vital Signs Vital Signs Vital Signs: 12/29/24 17:53 12/29/24 17:53 12/29/24 17:53 Temperature Temperature Source Temporal Pulse Rate 56 L Respiratory Rate Blood Pressure 120/70 BP Systolic 120 BP Diastolic 70 Pulse Ox 12/29/24 17:53 12/29/24 17:53 12/29/24 17:53 Temperature 99.0 F Temperature Source Pulse Rate Respiratory Rate 16 Blood Pressure BP Systolic BP Diastolic Pulse Ox 99 12/29/24 18:20 12/29/24 18:20 Temperature 99.0 F Temperature Source Temporal Pulse Rate Respiratory Rate Blood Pressure BP Systolic BP Diastolic Pulse Ox Weight Weight: 173 lb 4.533 oz Body Mass Index (BMI) 27.9 Physical Exam Const alert and oriented x3 General Appearance: cooperative, comfortable and well kempt Orientation / Consciousness: awake and oriented to person Exam Limitations: no limitations HEENT normocephalic Neck full ROM Chest inspection of chest normal Resp normal respiratory effort and no retractions Effort and Inspection: able to speak in complete sentences and symmetric chest movement Cardio regular rate Peripheral Pulses: pulses 2+ throughout GI normal to inspection, nondistended, normoactive bowel sounds Inspection: gravid no CVA tenderness and appearance of the vagina normal External Female Exam: normal appearance of the urethra; Negative for external lesion OB / External & Speculum: external exam normal Manual OB Exam: dilated 9, effaced 90 and station -1 Uterus Palpation: Negative for uterus tender Extremity normal to inspection Skin no rashes or lesions noted Neuro deep tendon reflexes 2+ bilaterally and gait normal Motor Exam: strength 5/5 throughout and clonus absent Psych Activity / Motor Behavior: appropriate eye contact Speech: normal speech Labs Labs Labs: Blood Type A POSITIVE Antibody Screen NEGATIVE Hct 35.4 % (37-47) L Hgb 12.1 g/dL (12.0-15.0) Obstetrics Ultrasound Syphilis Total Ab Nonreactive (Nonreactive) VZV IgG Antibody Rubella IgG Antibody Non-Reactive (Nonreactive) Hep Bs Antigen Non-Reactive (Nonreactive) Hepatitis C Antibody Non-Reactive (Nonreactive) Chlamydia DNA (BATOOL) Negative (Negative) N.gonorrhoeae DNA (BATOOL) Negative (Negative) HIV 1&2 Antibody Nonreactive (Nonreactive) Glucose 1 Hr 50 gm 123 mg/dL (70-140) Assessment & Plan (1) Rubella non-immune status, antepartum: COMMENT: offer mmr pp (2) Supervision of normal first : QUALIFIERS: Trimester: third trimester Qualified Code(s): Z34.03 - Encounter for supervision of normal first , third trimester COMMENT: PRR, , GAMAL 01/07/25, boy Muslim (3) : QUALIFIERS: Weeks of gestation: 37 weeks Qualified Code(s): Z3A.37 - 37 weeks gestation of COMMENT: gbs neg. declined NIPT & Carrier testing, afp declined. normal anatomy (4) Spontaneous onset of labor: COMMENT: active labor at 9cm with bulging bag of fluid PLAN: Plan Patient presents IAL, plan expectant management for , pitocin/AROM PRN if needed. Pain management: plans unmedicated. GBS negative. Management of any complications: none I have reviewed the [facility] and made any clinically relevant updates. Dr. hendricks updated on admission, exam and poc.
--- NOTE | 2024-12-29 19:55 | RAD_ITS ---
PROCEDURE: ABDOMEN SINGLE VIEW (PORTABLE) 12/29/2024 REASON FOR EXAM: EMERGENCY SECTION TECHNIQUE: ABDOMEN SINGLE VIEW (PORTABLE) COMPARISON: None FINDINGS: See impression RAD/Abdomen Single View (Portable) IMPRESSION: No evidence of radiopaque foreign body. Osseous structures are intact. Small amount of presumed postoperative gas within the pelvis, more so on the right. Reading Location: [facility]
--- NOTE | 2024-12-29 20:01 | PN.OBGYN_ITS ---
Objective Data Objective Data Vital Signs: Vital Signs Temp Pulse Resp BP Pulse Ox 99.0 F 56 L 16 120/70 99 12/29/24 18:20 12/29/24 17:53 12/29/24 17:53 12/29/24 17:53 12/29/24 17:53 Weight: 173 lb 4.533 oz Body Mass Index (BMI) 27.9 Lab / Micro Data 12/29/24 18:06 Labs: Laboratory Results - last 24 hr 12/29/24 18:06: WBC 11.5 H, RBC 3.90 L, Hgb 12.1, Hct 35.4 L, MCV 90.8, MCH 31.0, MCHC 34.2, RDW Std Deviation 44.2 H, RDW Coeff of Maikel 13.5, Plt Count 201, MPV 10.3, Immature Gran % (Auto) 0.600, Neut % (Auto) 79.8 H, Lymph % (Auto) 11.1 L, [place] % (Auto) 8.0, Eos % (Auto) 0.3, Baso % (Auto) 0.2, Absolute Neuts (auto) 9.2 H, Absolute Lymphs (auto) 1.28, Nucleated RBC % 0, Syphilis Total Ab Nonreactive, Blood Type A POSITIVE, Antibody Screen NEGATIVE Physical Exam Narrative forebag broke spontaneously at 1910, scrotum felt during contraction. stat c/s called. dr. hendricks notified and pt moved to the back for cs prep. Assessment & Plan (1) Breech presentation: COMMENT: cs alesia
--- NOTE | 2024-12-29 20:06 | OP.PCM_ITS ---
Assessment & Plan (1) Breech presentation: COMMENT: cs jv (2) Spontaneous onset of labor: COMMENT: active labor at 9cm with bulging bag of fluid (3) Rubella non-immune status, antepartum: COMMENT: offer mmr pp (4) Supervision of normal first : QUALIFIERS: Trimester: third trimester Qualified Code(s): Z34.03 - Encounter for supervision of normal first , third trimester COMMENT: PRR, , GAMAL 01/07/25, boy Hinduism (5) : QUALIFIERS: Weeks of gestation: 37 weeks Qualified Code(s): Z3A.37 - 37 weeks gestation of COMMENT: gbs neg. declined NIPT & Carrier testing, afp declined. normal anatomy Maternal Data Information GAMAL Calculator Estimated Delivery Date Method Current WG Current Estimate 01/07/25 LMP (Certain) 38w 5d Other Estimates 01/06/25 Ultrasound #1 38w 6d Final GAMAL: 01/07/25 Final GAMAL Source: LMP [place] Doctor Who Attended Delivery: Jf Nathan Operative Report (OB) Details Procedure Type: low transverse Date of Procedure: 12/29/24 Procedure Start Time: 19:26 Procedure Stop Time: 19:55 Time of Delivery: 19:29 Pre-Operative Diagnosis: Breech Post-Operative Diagnosis: Same as Pre-operative diagnosis Type of Anesthesia: General Antibiotic Given: Ancef 2 grams IV x1 and Zithromax 500 mg/5 mL X1 Drain: Hawkins to straight drain Estimated Blood Loss: 300cc Findings Description of surgery: The patient was brought to the operating room crowing in the breech presentation. She was prepped and draped with a betadine splash while the hawkins was placed and she and was placed in a dorsal supine position with a leftward tilt. General anesthesia was administered and a Pfannenstiel skin incision was made with a scalpel and carried through to the underlying layers. The fascia was nicked in the midline and extended laterally using Grimaldo scissors. The rectus muscles were in the midline. Peritoneum was entered sharply. The uterus was identified and a bladder blade was inserted into the abdomen. A low transverse incision was made with a scalpel and extended laterally manually. The 's feet were first to present and were gently grasped and guided out of the uterine incision. The legs and torso followed. The anterior shoulder was carefully swept across the chest. The infant was rotated to the opposite side and opposite arm was swept down and over the chest. The head was delivered with the help of my benefits assistant using fundal pressure and also a finger in the mouth to flex the head. The mouth and nares were bulb suctioned. The cord was clamped and cut. The end was handed off to the awaiting elevator constructor supervisor for routine assessment. Placenta was delivered manually without difficulty but was noted to be bilobed and sent for pathology analysis. The uterus was exteriorized and cleared of all clots and debris. Incision was closed with an 0 Vicryl suture in a running locked fashion. Second layer of 1-0 monocryl suture was used in imbricating manner to create excellent closure and hemostasis. The uterus was returned to the abdomen. The gutters were cleared of all clots and debris. The peritoneum was closed in a pursestring pattern using a 3-0 Vicryl suture. This muscle was reapproximated with a 3-0 Vicryl. The fascia was closed with a stratafix suture. Subcutaneous tissue layer was irrigated then closed using a plain gut suture. The skin was closed with a 4-0 Monocryl subcuticular stitch. The skin was also sealed with surgical glue. The patient tolerated the procedure well sponge lap and needle counts were correct at each tissue closure plane and the patient is now being brought to the recovery room in stable condition. The benefits assistant helped with retraction, suction, and suture cutting. She also helped with fundal pressure to assist with the delivery of the infant. Surgical findings: viable male Jarrod in the breech presentation Presentation: Jf Breech Amniotic Membrane Rupture Type: Spontaneous Amniotic Fluid Description: Clear Placental Delivery Description: Expressed Placenta Disposition: [facility] Specimen collected: No Cord Vessel Description: 3 Vessels Cord Entanglement: None Cord Gases: ABG and VBG A gender: Male (1 minute): 8 (5 minute): 9 Delayed Cord Clamping: No End Finder Twisting Department driver license agent: Yes Family [employer] Teacher: Jill Sethi Tasks completed by heel sprayer first: Retracting Additional benefits assistant?: No Complications Complications: No Admit VTE Documentation VTE Present on Admission: No VTE Pharm Prophylaxis Ordered: No
[2024-12-29] MEDS: Ondansetron 4 MG/2 ML Vial IV (20:15)
--- OUTSIDE RECORDS SUMMARY | 2024-12-29 20:16 | XMS RPT_ITS | CCD ---
Author Organization [facility] CliniSyvt Care Team Providers Care Jail Officer Name Role Phone Kya Stapleton CNM Attending Provider Dr. Evelia Catalan MD Attending Provider [phone] Kya Stapleton CNM Referring Provider [phone] Care Physician, No Primary Primary Care Provider Unavailable Care Physician, No Primary Referring Provider Un available Sheryl Hook Attending Provider [phone] Kya Stapleton CNM Attending Provider [phone] Dr. Evelia Catalan MD Attending Provider [phone] Dr. Ellie Rodríguez DO Attending Provider Jill Sethi CNM Attending Provider [phone] Kya Stapleton CNM Attending Provider Care Physician, [...] Primary Care Unava ilable Ellie Rodríguez [facility] K[facility] Stapleton Attending Unavailable Evelia Catalan Attending Unavailable Care Physician, No Primary Referring Unava ilable Care Physician, No Primary Primary Care Unava ilable Evelia Catalan Attending Unavailable Care Physician, No Primary Primary Care Unava ilable Kya Stapleton Attending Unavailable Care Physician, No Primary Referring Unava ilable Medications Current Medications Medication Drug Class(es) Dates Sig (Normalized) Sig (Original) Mv-Mins 54-Qhrf-Pryzo No.1-Dha (Pnv-[place]) 28-1-300 mg capsule (4 sources) Start: 06-07-2024 Mv-Mins 19-Ovsq-Luwjk No.1-Dha (Pnv-[place]) 28-1-300 mg capsule Active NMA PO June [...] Comment on above: PRR, , GAMAL , Yazdanism declined NIPT & Prince ier testing, afp declined. normal anatomy PRR, , GAMAL , boy Yazdanism gbs neg. declined NI PT & Carrier [...] Test Name Value Interpretation Reference Range Facility Dopster Office Visit Reporton 12-26-2024 Dopster Office Visit Report [facility] [address], [address] [place] [address] OFFICE VISIT Date of Service: 12/26/24 MR#: [id number] Acct: [id number] Name: CALLUM CABALLERO Rep #: [id number] : 1995 Provider: AJIT guerra Age/Sex: 29/F [place] [facility] [place]: Signed Intake Vital Signs 07/22/24 08:44 12/20/24 13:52 12/26/24 12:50 Height 5 ft 6 in 5 ft 6 in 5 ft 6 in Weight: 175 lb 4 oz BMI 28.3 BP 120/78 Intake Visit Reasons: 38 WK OB Chief Complaint: 38 Week 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 Required: No Is patient in pain?: No Allergies No Known Allergies Allergy (Verified 12/26/24 12:50) Medications ???Medication ???Instructions ???Recorded ???Confirmed ???Type multivit-min no.71-iron fum 28 cap PO 06/07/24 12/26/24 History mg-folate no.1 1 mg-dha 300 mg capsule (PNV-[place]) Last Menstrual Period: 04/02/24 Zika: Zika virus [...] physical activity do you participate in: none jacob/rastafari: Yazdanism seatbelt use: always do you feel safe at home: Yes 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 ??-???- KW-no vb/pattern scratcher mping. no concerns US ordered. 08/16/24 -???-???-???-???-???- [...] 28 w (more content not included)... Normal [facility] Rule out Beta Strep (Grp. B) on 12-22-2024 YAMIIN Group B Beta Streptococcus is not isolated. Normal [facility] Comment on above: Performed By: #### L 100.0100, L3890.6100, L3890.6005, L509.8000, L509.4005, BTS, L3890.6300 #### [facility] [address] [place], [address] (ROM) Rupture Of Membraneson 12-20-2024 ROM Negative Normal Negative [facility] Comment on above: Result Comment: Amni otic fluid not present indicates No Rupture of Membranes at time of specimen collection. Performed By: #### L 100.0100, L3890.6100, L3890.6005, L509.8000, L509.4005, BTS, L3890.6300 #### [facility] [address] [place], [place], [address] Laboratory - Chemistry and C hemistry - challengeOrdered By: Jill Sethi on 12-20-2024 Glucose Ql (U) Negative [facility] - UrinalysisOrder ed By: Jill Sethi on 12-20-2024 Protein Ql (U) Negative [facility] Dopster Office Visit Reporton 12-20-2024 Dopster Office Visit Report [facility]'s [address], [address] [place] [address] OFFICE VISIT Date of Service: 12/20/24 MR#: [id number] Acct: [id number] Name: CALLUM CABALLERO Rep #: [id number] : 1995 Provider: DLYON tellez Age/Sex: 29/F [place] [facility] [place]: Signed Intake Vital Signs 07/22/24 08:44 12/06/24 14:37 12/20/24 13:52 Height 5 ft 6 in 5 ft 6 in 5 ft 6 in Weight: 176 lb 6 oz BMI 28.4 BP 116/74 Intake Visit Reasons: 37 WK 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 Required: No Is patient in pain?: No Allergies No Known Allergies Allergy (Verified 12/20/24 13:55) Medications ???Medication ???Instructions ???Recorded ???Confirmed ???Type multivit-min no.71-iron fum 28 cap PO 06/07/24 12/20/24 History mg-folate no.1 1 mg-dha 300 mg capsule (PNV-[place]) Last Menstrual Period: 04/02/24 Zika: Zika virus [...] physical activity do you participate in: none jacob/rastafari: Yazdanism seatbelt use: always do you feel safe at home: Yes 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 OB Visit GAMAL Calculator Estimated Delivery Date Method Current WG Current Estimate 01/07/25 LMP (Certain) 37w 3d Other Estimates 01/06/25 Ultrasound #1 37w 4d Expected Delivery Route/Plan Labor Preferences- CB/BF classes: encouraged labor support person: Yazdanism labor intervention preferences: [] pain management options [...] ??-???- Negative 160 -???-???-???-???-???- ???-???-???-???-???-? ??-???- KW-no vb/pattern scratcher mping. no concerns US ordered. 08/16/24 -???-???-???-???-???- [...] discussed. 10/11/24 (more content not included)... Normal [facility] Screening beta-hemolytic Str eptococcus cultureOrdered By: Jill Sethi on 12-20-2024 Beta-hemolytic Streptococcus culture Group B Beta Streptococcus is not isolated. [facility] - Chemistry and C hemistry - challengeOrdered By: Kya Stapleton on 12-06-2024 Glucose Ql (U) Negative [facility] - UrinalysisOrder ed By: Kya Stapleton on 12-06-2024 Protein Ql (U) Negative [facility] Dopster Office Visit Reporton 12-06-2024 Dopster Office Visit Report [facility]'s [address], [address] [place] [address] OFFICE VISIT Date of Service: 12/06/24 MR#: [id number] Acct: [id number] Name: CALLUM CABALLERO Rep #: [id number] : 1995 Provider: DYLON Parker ams Age/Sex: 29/F [place] [facility] [place]: Signed Intake Vital Signs 07/22/24 08:44 11/11/24 10:49 12/06/24 14:37 Height 5 ft 6 in 5 ft 6 in 5 ft 6 in Weight: 173 lb 4 oz BMI 27.9 BP 127/82 H Intake Visit Reasons: 35 WK OB Chief Complaint: 35wk 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 Required: No Is patient in pain?: No Allergies No Known Allergies Allergy (Verified 12/06/24 14:35) Medications ???Medication ???Instructions ???Recorded ???Confirmed ???Type multivit-min no.71-iron fum 28 cap PO 06/07/24 12/06/24 History mg-folate no.1 1 mg-dha 300 mg capsule (PNV-[place]) Last Menstrual Period: 04/02/24 : No PFSH [...] physical activity do you participate in: none jacob/rastafari: Yazdanism seatbelt use: always do you feel safe at home: Yes 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 ??-???- KW-no vb/pattern scratcher mping. no concerns US ordered. 08/16/24 -???-???-???-???-???- [...] 10/11/24 -???-???-???-???-? (more content not included)... Normal [facility] - Chemistry and C hemistry - challengeOrdered By: Ellie Rader on 11-11-2024 Glucose Ql (U) Negative [facility] - UrinalysisOrder ed By: Ellie Rader on 11-11-2024 Protein Ql (U) Negative [facility] Dopster Office Visit Reporton 11-11-2024 Dopster Office Visit Report [facility], [address] [place] [address] OFFICE VISIT Date of Service: 11/11/24 MR#: [id number] Acct: [id number] Name: ADA,CALLUM C Rep #: [id number] : 1995 Provider: Dr. Ellie Kwan DO Age/Sex: 29/F [place] [facility] [place]: Signed Intake Vital Signs 07/22/24 08:44 09/13/24 13:49 10/25/24 15:02 11/11/24 10:49 Height 5 ft 6 in 5 ft 6 in 5 ft 6 in 5 ft 6 in Weight: 168 lb 8 oz BMI 27.1 BP 105/69 Intake Visit Reasons: 31 WK 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 Required: No Is patient in pain?: No Allergies No Known Allergies Allergy (Verified 11/11/24 10:50) Medications ???Medication ???Instructions ???Recorded ???Confirmed ???Type multivit-min no.71-iron fum 28 cap PO 06/07/24 11/11/24 History mg-folate no.1 1 mg-dha 300 mg capsule (PNV-[place]) Last Menstrual Period: 04/02/24 Zika: Zika virus [...] physical activity do you participate in: none jacob/rastafari: Yazdanism seatbelt use: always do you feel safe at home: Yes 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 ??-???- KW-no vb/pattern scratcher mping. no concerns US ordered. 08/16/24 -???-???-???-???-???- [...] classes discussed. (more content not included)... Normal [facility] - Chemistry and C hemistry - challengeOrdered By: Eveliadebra Catalan on 10-25-2024 Glucose Ql (U) Negative [facility] - UrinalysisOrder ed By: Evelia Catalan on 10-25-2024 Protein Ql (U) Negative [facility] Dopster Office Visit Reporton 10-25-2024 Dopster Office Visit Report [facility] [address], [address] [place] [address] OFFICE VISIT Date of Service: 10/25/24 MR#: [id number] Acct: [id number] Name: CALLUM CABALLERO Rep #: [id number] : 1995 Provider: Dr. Evelia ramirez MD Age/Sex: 29/F [place] [facility] [place]: Signed Intake Vital Signs 07/22/24 08:44 10/11/24 13:11 10/25/24 15:02 Height 5 ft 6 in 5 ft 6 in 5 ft 6 in Weight: 167 lb 4 oz BMI 26.9 BP 117/78 Intake Visit Reasons: 29 WK 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 Required: No Is patient in pain?: No Feel stressed/tense/nervou s/anxious/difficulty sleeping: not at all Allergies No Known Allergies Allergy (Verified 10/25/24 15:03) Medications ???Medication ???Instructions ???Recorded ???Confirmed ???Type multivit-min no.71-iron fum 28 cap PO 06/07/24 10/25/24 History mg-folate no.1 1 mg-dha 300 mg capsule (PNV-[place]) Last Menstrual Period: 04/02/24 Zika: Zika virus [...] physical activity do you participate in: none jacob/rastafari: Yazdanism seatbelt use: always do you feel safe at home: Yes 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 ??-???- KW-no vb/pattern scratcher mping. no concerns US ordered. 08/16/24 -???-???-???-???-???- [...] 28 week (more content not included)... Normal [facility] V-Zoster IgG (Immunity)on V ZOSTER IgG Normal [facility] Comment on above: Result Comment: RESU LT: REACTIVE Please note reference interval change A Reactive result is considered evidence of immunity to VZV. Reactive indicates that VZV IgG was detected consistent with previous infection and/or vaccination. A Non Reactive result indicates that VZV IgG was not detected suggesting that immunity has not been acquired. Performed at: [facility] [address] [place] [id number] Ed Transporter: Demian Carter PhD, Phone: [phone] Performed By: #### L 3400.0000 #### [facility] [address] [place], [address] Absolute lymphocyte countOrd ered By: Kya Stapleton on 10-11-2024 Lymphocytes Auto (Unsp spec) [#/Vol] 1.21 10*3/uL 0.83-4.51 [facility] Absolute neutrophil countOrd ered By: Kya Stapleton on 10-11-2024 Neutrophils (Bld) [#/Vol] 6.3 10*3/uL 2.0-7.7 [facility] Automated lymphocyte count a s percentage of total leukocytesOrdered By: Kya Stapleton on 10-11-2024 Lymphocytes/100 WBC Auto (Unsp spec) 14.9 % Low 19-41 [facility] Basophil percentageOrdered B y: Kya Stapleton on 10-11-2024 Basophils/100 WBC (Bld) 0.2 % 0-1 [facility] CBC W/Diff, Automatedon 09-15 Absolute Lymph 1.21 X10 3/uL Normal 0.83-4.51 [facility] Comment on above: Performed By: #### L 100.0100, L509.8002, L3890.6006, L501.0250 #### [facility] [address] [place], [address] Absolute Neut 6.3 X10 3/uL Normal 2.0-7.7 [facility] Comment on above: Performed By: #### L 100.0100, L509.8002, L3890.6006, L501.0250 #### [facility] [address] [place], [address] Basophils/100 WBC (Bld) 0.2 % Normal 0-1 [facility] Comment on above: Performed By: #### L 100.0100, L509.8002, L3890.6006, L501.0250 #### [facility] [address] [place], [address] Eosinophils/100 WBC (Bld) 0.7 % Normal 0-5 [facility] Comment on above: Performed By: #### L 100.0100, L509.8002, L3890.6006, L501.0250 #### [facility] [address] [place], [address] Erythrocyte distribution width (RBC) [Ratio] 13.3 % Normal 11.6-14.6 [facility] Comment on above: Performed By: #### L 100.0100, L509.8002, L3890.6006, L501.0250 #### [facility] [address] [place], [address] Hematocrit (Bld) [Volume fraction] 31.9 % Low 37-47 [facility] Comment on above: Performed By: #### L 100.0100, L509.8002, L3890.6006, L501.0250 #### [facility] [address] [place], [address] Hemoglobin (Bld) [Mass/Vol] 11.0 g/dL Low 12.0-15.0 [facility] Comment on above: Performed By: #### L 100.0100, L509.8002, L3890.6006, L501.0250 #### [facility] [address] [place], [address] IG% 0.400 Normal 0.0-0.9 [facility] Comment on above: Result Comment: IG% - Immature Granulocytes (promyelocytes, myelocytes and metamyelocytes) > 1% indicates that a LEFT SHIFT is Present. Performed By: #### L 100.0100, L509.8002, L3890.6006, L501.0250 #### [facility] [address] [place], [address] Lymphocytes/100 WBC (Bld) 14.9 % Low 19-41 [facility] Comment on above: Performed By: #### L 100.0100, L509.8002, L3890.6006, L501.0250 #### [facility] [address] [place], [address] MCH (RBC) [Entitic mass] 31.5 pg Normal 27.0-32.0 [facility] Comment on above: Performed By: #### L 100.0100, L509.8002, L3890.6006, L501.0250 #### [facility] [address] [place], [address] MCHC (RBC) [Mass/Vol] 34.5 g/dL Normal 32-36 [facility] Comment on above: Performed By: #### L 100.0100, L509.8002, L3890.6006, L501.0250 #### [facility] [address] [place], [address] MCV (RBC) [Entitic vol] 91.4 fL Normal 81-99 [facility] Comment on above: Performed By: #### L 100.0100, L509.8002, L3890.6006, L501.0250 #### [facility] [address] [place], [address] Monocytes/100 WBC (Bld) 6.5 % Normal 0-10 [facility] Comment on above: Performed By: #### L 100.0100, L509.8002, L3890.6006, L501.0250 #### [facility] [address] [place], [address] Neutrophils/100 WBC (Bld) 77.3 % High 47-70 [facility] Comment on above: Performed By: #### L 100.0100, L509.8002, L3890.6006, L501.0250 #### [facility] [address] [place], [address] Nucleated RBC (Bld) [#/Vol] 0 10*3/uL Normal 0-5 [facility] Comment on above: Performed By: #### L 100.0100, L509.8002, L3890.6006, L501.0250 #### [facility] [address] [place], [address] Platelet mean volume (Bld) [Entitic vol] 10.2 fL Normal 6.2-12.0 [facility] Comment on above: Performed By: #### L 100.0100, L509.8002, L3890.6006, L501.0250 #### [facility] [address] [place], [address] Platelets (Bld) [#/Vol] 210 10*3/uL Normal 150-450 [facility] Comment on above: Performed By: #### L 100.0100, L509.8002, L3890.6006, L501.0250 #### [facility] [address] [place], [address] RBC (Bld) [#/Vol] 3.49 10*6/uL Low 4.2-5.4 [facility] Comment on above: Performed By: #### L 100.0100, L509.8002, L3890.6006, L501.0250 #### [facility] [address] [place], [address] RDW SD 44.2 fl High 35.1-43.9 [facility] Comment on above: Performed By: #### L 100.0100, L509.8002, L3890.6006, L501.0250 #### [facility] [address] [place], [address] WBC (Bld) [#/Vol] 8.1 10*3/uL Normal 4.4-11.0 [facility] Comment on above: Performed By: #### L 100.0100, L509.8002, L3890.6006, L501.0250 #### [facility] [address] [place], [place], [address] Eosinophil percentageOrdered By: Kya Stapleton on 10-11-2024 Eosinophils/100 WBC (Bld) 0.7 % 0-5 [facility] Erythrocyte distribution wid th (RBC) [Ratio]Ordered By: Kya Stapleton on 10-11-2024 Erythrocyte distribution width (RBC) [Entitic vol] 44.2 fL High 35.1-43.9 [facility] Erythrocyte distribution wid th ratioOrdered By: Kya Stapleton on 10-11-2024 Erythrocyte distribution width (RBC) [Ratio] 13.3 % 11.6-14.6 [facility] Erythrocyte distribution wid th standard deviationOrdered By: Kya Stapleton on 10-11-2024 Erythrocyte distribution width (RBC) [Ratio] 44.2 fl High 35.1-43.9 [facility] Glucose Challenge Gest 1H 50 pedro 10-11-2024 GLU GEST 50g 1H 123 mg/dL Normal 70-140 [facility] Comment on above: Performed By: #### L 100.0100, L509.8002, L3890.6006, L501.0250 #### [facility] [address] [place], [address] Glucose measurement at 2 lula rs post-dose gestational glucose tolerance testOrdered By: Kya Stapleton on 10-11-2024 Glucose [Mass/Vol] 123 mg/dL 70-140 [facility] Hematocrit Auto (Bld) [Volum e fraction]Ordered By: Kya Stapleton on 10-11-2024 Hematocrit (Bld) [Volume fraction] 31.9 % Low 37-47 [facility] Hemoglobin measurementOrdere d By: Kya Stapleton on 10-11-2024 Hemoglobin (Bld) [Mass/Vol] 11.0 g/dL Low 12.0-15.0 [facility] Immature granulocytes/100 WB C Auto (Bld)Ordered By: Kya Stapleton on 10-11-2024 Immature granulocytes/100 WBC (Bld) 0.400 % 0.0-0.9 [facility] Comment on above: IG% - Immature Granu locytes (promyelocytes, myelocytes and metamyelocytes) > 1% indicates that a LEFT SHIFT is Present. L3890.6006on 10-11-2024 HIV Non-Reactive Normal Nonreactive [facility] Comment on above: Result Comment: Non- Reactive Reactive Repeatedly reactive samples must be confirmed according to CDC recommended confirmatory algorithms. The subresults for either HIVAG or AHIV can be used as an aid in the selection of the confirmation algorithm for reactive samples. Send out specimens with Reactive results to [facility] for confirmation. Order the HIV antibody detection and differentiation: lc#[id number] Performed By: #### L 100.0100, L3890.6100, L3890.6005, L509.8000, L509.4005, BTS, L3890.6300 #### [facility] [address] [place], [place], [address] L509.8002on 10-11-2024 Syphilis Abs Non-Reactive Normal Nonreactive [facility] Comment on above: Performed By: #### L 100.0100, L3890.6100, L3890.6005, L509.8000, L509.4005, BTS, L3890.6300 #### [facility] [address] [place], [address] Laboratory - Chemistry and C hemistry - challengeOrdered By: Sheryl Kern on 10-11-2024 Glucose Ql (U) Negative [facility] - UrinalysisOrder ed By: Sheryl Kern on 10-11-2024 Protein Ql (U) Negative [facility] Lymphocytes Auto (Unsp spec) [#/Vol]Ordered By: Kya Stapleton on 10-11-2024 Lymphocytes (Bld) [#/Vol] 1.21 10*3/uL 0.83-4.51 [facility] Lymphocytes/100 WBC Auto (Un sp spec)Ordered By: Kya Stapleton on 10-11-2024 Lymphocytes/100 WBC (Bld) 14.9 % Low 19-41 [facility] MCV (mean corpuscular volume ) determinationOrdered By: Kya Stapleton on 10-11-2024 MCV (RBC) [Entitic vol] 91.4 fL 81-99 [facility] Mean corpuscular hemoglobin (MCH) determinationOrdered By: Kya Stapleton on 10-11-2024 MCH (RBC) [Entitic mass] 31.5 pg 27.0-32.0 [facility] Mean corpuscular hemoglobin concentration (MCHC) determinationOrdered By: Kya Stapleton on 10-11-2024 MCHC (RBC) [Mass/Vol] 34.5 g/dL 32-36 [facility] Mean platelet volume determi nationOrdered By: Kya Stapleton on 10-11-2024 Platelet mean volume (Bld) [Entitic vol] 10.2 fL 6.2-12.0 [facility] Monocyte percentageOrdered B y: Kya Stapleton on 10-11-2024 Monocytes/100 WBC (Bld) 6.5 % 0-10 [facility] Neutrophil percentageOrdered By: Kya Stapleton on 10-11-2024 Neutrophils/100 WBC (Bld) 77.3 % High 47-70 [facility] No Panel InformationOrdered By: Kya Stapleton on 10-11-2024 HIV (1&2) Antibody Non-Reactive Nonreactive [facility] Comment on above: Non-ReactiveReactive Repeatedly reactive samples must be confirmed according to CDC recommended confirmatory algorithms. The subresults for either HIVAG or AHIV can be used as an aid in the selection of the confirmation algorithm for reactive samples.Send out specimens with Reactive results to [facility] for confirmation.Order the HIV antibody detection and differentiation: #[id number] Nucleated red blood cell per centageOrdered By: Kya Stapleton on 10-11-2024 Nucleated RBC/100 WBC (Bld) [Ratio] 0 % 0-5 [facility] Dopster Office Visit Reporton 10-11-2024 Dopster Office Visit Report [facility], [address] [place] [address] OFFICE VISIT Date of Service: 10/11/24 MR#: [id number] Acct: [id number] Name: CALLUM CABALLERO Rep #: [id number] : 1995 Provider: AJIT guerra Age/Sex: 29/F [place] [facility] [place]: Signed Intake Vital Signs 07/22/24 08:44 09/13/24 13:49 10/11/24 13:11 Height 5 ft 6 in 5 ft 6 in 5 ft 6 in Weight: 162 lb BMI 26.1 BP 108/66 Intake Visit Reasons: 27 WK OB/GLUCOSE Chief Complaint: 27 Week OB/Glucose Industrial Staff Nurse Required: No Is patient in pain?: No Allergies No Known Allergies Allergy (Verified 10/11/24 13:12) Medications ???Medication ???Instructions ???Recorded ???Confirmed ???Type multivit-min no.71-iron fum 28 cap PO 06/07/24 10/11/24 History mg-folate no.1 1 mg-dha 300 mg capsule (PNV-[place]) Last Menstrual Period: 04/02/24 Zika: Zika virus [...] physical activity do you participate in: none jacob/rastafari: Yazdanism seatbelt use: always do you feel safe at home: Yes 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 ??-???- KW-no vb/pattern scratcher mping. no concerns US ordered. 08/16/24 -???-???-???-???-???- [...] 10/11/24 - (more content not included)... Normal [facility] Platelet countOrdered By: Magan Stapleton on 10-11-2024 Platelets (Bld) [#/Vol] 210 10*3/uL 150-450 [facility] RBC Auto (Bld) [#/Vol]Ordere d By: Kya Stapleton on 10-11-2024 RBC (Bld) [#/Vol] 3.49 10*6/uL Low 4.2-5.4 [facility] Serum Varicella zoster virus IgG antibody assay by immunoassay (units/volume)Ordered By: Sheryl Kern on 10-11-2024 VZV IgG IA Qn (S) See comment [facility] Comment on above: RESULT: REACTIVEPl ease note reference interval changeA Reactive result is considered evidence of immunity toVZV. Reactive indicates that VZV IgG was detectedconsistent with previous infection and/or vaccination.A Non Reactive result indicates that VZV IgG was notdetected suggesting that immunity has not been acquired.Performed at: [employer] [id number] Director: Demian Carter PhD, Phone: [phone] T. pallidum abOrdered By: Magan Stapleton on 10-11-2024 Syphilis Total Antibody Non-Reactive Nonreactiv e [facility] VZV IgG IA Qn (S)Ordered By: Sheryl Kern on 10-11-2024 Varicella-Zoster IgG Antibody See comment [facility] Comment on above: RESULT: REACTIVEPl ease note reference interval changeA Reactive result is considered evidence of immunity toVZV. Reactive indicates that VZV IgG was detectedconsistent with previous infection and/or vaccination.A Non Reactive result indicates that VZV IgG was notdetected suggesting that immunity has not been acquired.Performed at: [employer] [id number] Director: Demian Carter PhD, Phone: [phone] White blood cell (WBC) count Ordered By: Kya Stapleton on 10-11-2024 WBC (Bld) [#/Vol] 8.1 10*3/uL 4.4-11.0 [facility] - Chemistry and C hemistry - challengeOrdered By: Kya Stapleton on 09-13-2024 Glucose Ql (U) Negative [facility] - UrinalysisOrder ed By: Kya Stapleton on 09-13-2024 Protein Ql (U) Negative [facility] Dopster Office Visit Reporton 09-13-2024 Dopster Office Visit Report [facility]'s [address], [address] [place] [address] OFFICE VISIT Date of Service: 09/13/24 MR#: [id number] Acct: [id number] Name: CALLUM CABALLERO Rep #: [id number] : 1995 Provider: DYLON Parker ams Age/Sex: 29/F [place] [facility] [place]: Signed Intake Vital Signs 07/22/24 08:44 08/16/24 14:46 09/13/24 13:49 Height 5 ft 6 in 5 ft 6 in 5 ft 6 in Weight: 158 lb 4 oz 166 lb BMI 25.5 26.8 BP 107/64 114/69 Intake Visit Reasons: 23 WK OB Chief Complaint: 23 Week 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 Required: No Is patient in pain?: No Allergies No Known Allergies Allergy (Verified 09/13/24 13:49) Medications ???Medication ???Instructions ???Recorded ???Confirmed ???Type multivit-min no.71-iron fum 28 cap PO 06/07/24 09/13/24 History mg-folate no.1 1 mg-dha 300 mg capsule (PNV-[place]) Last Menstrual Period: 04/02/24 Zika: Zika virus [...] physical activity do you participate in: none jacob/rastafari: Yazdanism seatbelt use: always do you feel safe at home: Yes 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 ??-???- KW-no vb/pattern scratcher mping. no concerns US ordered. 08/16/24 -???-???-???-???-???- [...] First Trimester: (more content not included)... Normal [facility] OB Anatomy w/ Transvaginalon 08-23-2024 OB Anatomy w/ Transvaginal [facility] Services [address] [place] [address] OB Anatomy w/ Transvaginal MR#: [id number] Acct: [id number] Name: CALLUM CABALLERO Rep #: [id number] : 1995 F 29 From: Panfilo Jenkins i DO PCP: Care Physician,No Primary Status: [facility] Study: OB Anatomy w/ Transvaginal Date of Exam: 08/23 Exam# [id number] Ordering Dr: Kya Stapleton CNM PROCEDURE: ultrasound. [...] CC: DYLON Stapleton; No Primary Care Physician Practical Nursing Faculty: Signed Normal [facility] - Chemistry and C hemistry - challengeOrdered By: Evelia Catalan on 08-16-2024 Glucose Ql (U) Negative [facility] - UrinalysisOrder ed By: Evelia Catalan on 08-16-2024 Protein Ql (U) Negative [facility] Dopster Office Visit Reporton 08-16-2024 Dopster Office Visit Report [facility]'s [address], [address] [place] [address] OFFICE VISIT Date of Service: 08/16/24 MR#: [id number] Acct: [id number] Name: CALLUM CABALLERO Rep #: [id number] : 1995 Provider: Dr. Evelia ramirez MD Age/Sex: 29/F Location: [facility] [place] Status: Signed Intake Vital Signs 06/17/24 10:23 07/22/24 08:44 08/16/24 14:46 Height 5 ft 6 in 5 ft 6 in 5 ft 6 in Weight: 158 lb 4 oz BMI 25.5 BP 107/64 Intake Visit Reasons: 19 wk ob Chief Complaint: 19 Week 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 Required: No Is patient in pain?: No Allergies No Known Allergies Allergy (Verified 08/16/24 14:52) Medications ???Medication ???Instructions ???Recorded ???Confirmed ???Type multivit-min no.71-iron fum 28 cap PO 06/07/24 08/16/24 History mg-folate no.1 1 mg-dha 300 mg capsule (PNV-[place]) Last Menstrual Period: 04/02/24 Zika: Zika virus [...] physical activity do you participate in: none jacob/rastafari: Yazdanism seatbelt use: always do you feel safe at home: Yes 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 ??-???- KW-no vb/pattern scratcher mping. no concerns US ordered. 08/16/24 -???-???-???-???-???- [...] Care C (more content not included)... Normal [facility] - Chemistry and C hemistry - challengeon 07-22-2024 Glucose Ql (U) Negative [facility] - Urinalysison Protein Ql (U) Negative [facility] Dopster Office Visit Reporton 07-22-2024 Dopster Office Visit Report [facility] [address] [place] [address], [address] [place] [address] OFFICE VISIT Date of Service: 07/22/24 MR#: [id number] Acct: [id number] Name: CALLUM CABALLERO Rep #: [id number] : 1995 Provider: DYLON Parker ams Age/Sex: 29/F [place] [facility] [place] Status: Signed Intake Vital Signs 06/17/24 10:23 07/22/24 08:42 07/22/24 08:44 Height 5 ft 6 in 5 ft 6 in 5 ft 6 in Weight: 152 lb 8 oz 156 lb BMI 24.6 25.2 BP 125/65 H 108/57 L Intake Visit Reasons: 15wk 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 Required: No Is patient in pain?: No Allergies No Known Allergies Allergy (Verified 07/22/24 08:43) Medications ???Medication ???Instructions ???Recorded ???Confirmed ???Type multivit-min no.71-iron fum 28 cap PO 06/07/24 07/22/24 History mg-folate no.1 1 mg-dha 300 mg capsule (PNV-[place]) Last Menstrual Period: 04/02/24 Zika: Zika virus [...] physical activity do you participate in: none jacob/rastafari: Yazdanism seatbelt use: always do you feel safe at home: Yes 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 ??-???- 160 -???-???-???-???-???- ???-???-???-???-???-? ??-???- KW-no vb/pattern scratcher mping. no concerns US ordered. ACOG First [...] additional compla (more content not included)... Normal [facility] PAP I-G w/rfx hrHPV-Aptimaon 06-25-2024 ADEQ Comment Normal . [facility] Comment on above: Order Comment: Reaso n for Exam: Result Comment: Sati sfactory for evaluation. Endocervical and/or squamous metaplastic cells (endocervical component) are present. Performed By: #### L 100.0100, L3890.6100, L3890.6005, L509.8000, L509.4005, BTS, L3890.6300 #### [facility] [address] [place], [place], [id number] COMM . Normal . [facility] Comment on above: Order Comment: Reaso n for Exam: Performed By: #### L 100.0100, L3890.6100, L3890.6005, L509.8000, L509.4005, BTS, L3890.6300 #### [facility] [address] [place], [address] COMMENT Comment Normal . [facility] Comment on above: Order Comment: Reaso n for Exam: Result Comment: This liquid based ThinPrep(R) pap test was screened with the use of an image guided system. Performed By: #### L 100.0100, L3890.6100, L3890.6005, L509.8000, L509.4005, BTS, L3890.6300 #### [facility] [address] [place], [address] DIAG Comment Normal . [facility] Comment on above: Order Comment: Reaso n for Exam: Result Comment: NEGA TIVE FOR INTRAEPITHELIAL LESION OR MALIGNANCY. CELLULAR CHANGES ASSOCIATED WITH INFLAMMATION ARE PRESENT. THIS SPECIMEN WAS RESCREENED PART OF OUR AWARD MACHINE OPERATOR PROGRAM. Performed By: #### L 100.0100, L3890.6100, L3890.6005, L509.8000, L509.4005, BTS, L3890.6300 #### [facility] [address] [place], [address] HPV RFLX Comment Normal . [facility] Comment on above: Order Comment: Reaso n for Exam: Result Comment: The HPV DNA reflex criteria were not met with this specimen result therefore, no HPV testing was performed. Performed at: [facility] Cyto Histo [address] [facility], [place], [place] [id number] Ed Transporter: Kenny Reeder MD, Phone: [phone] Performed at: [address], [place] [id number] Ed Transporter: Mary Alice Pizano MD, Phone: [phone] Performed By: #### L 100.0100, L3890.6100, L3890.6005, L509.8000, L509.4005, BTS, L3890.6300 #### [facility] [address] [place], [place], [id number] PAPSMR Comment Normal . [facility] Comment on above: Order Comment: Reaso n [...] L3890.6100, L3890.6005, L509.8000, L509.4005, BTS, L3890.6300 #### [facility] [address] [place], [place], [id number] PERFORM Comment Normal . [facility] Comment on above: Order Comment: Reaso n for Exam: Result Comment: Alicja Vargas Rod Greaser (ASCP) Performed By: #### L 100.0100, L3890.6100, L3890.6005, L509.8000, L509.4005, BTS, L3890.6300 #### [facility] [address] [place], [place], [id number] QC REV Comment Normal . [facility] Comment on above: Order Comment: Reaso n for Exam: Result Comment: Mikel Stapleton Rod Greaser (ASCP) Performed By: #### L 100.0100, L3890.6100, L3890.6005, L509.8000, L509.4005, BTS, L3890.6300 #### [facility] [address] [place], [address] Chlamydia/GC BATOOL aptimaon CHLAMY,NUC ACID Negative Normal Negative [facility] Comment on above: Performed By: #### L 100.0100, L3890.6100, L3890.6005, L509.8000, L509.4005, BTS, L3890.6300 #### [facility] [address] [place], [address] GC BY NUC ACID Negative Normal Negative [facility] Comment on above: Result Comment: Perf ormed at: =G - [facility] [address] [id number] Ed Transporter: Mary Alice Pizano MD, Phone: [phone] Performed By: #### L 100.0100, L3890.6100, L3890.6005, L509.8000, L509.4005, BTS, L3890.6300 #### [facility] [address] [place], [address] Urine Cultureon 06-18-2024 URC Culture exhibits no growth. Normal [facility] Comment on above: Performed By: #### L 100.0100, L3890.6100, L3890.6005, L509.8000, L509.4005, BTS, L3890.6300 #### [facility] [address] [place], [address] CBC W/Diff, Automatedon 12 Absolute Lymph 1.63 X10 3/uL Normal 0.83-4.51 [facility] Comment on above: Performed By: #### L 100.0100, L3890.6100, L3890.6005, L509.8000, L509.4005, BTS, L3890.6300 #### [facility] [address] [place], [address] Absolute Neut 6.9 X10 3/uL Normal 2.0-7.7 [facility] Comment on above: Performed By: #### L 100.0100, L3890.6100, L3890.6005, L509.8000, L509.4005, BTS, L3890.6300 #### [facility] [address] [place], [address] Basophils/100 WBC (Bld) 0.4 % Normal 0-1 [facility] Comment on above: Performed By: #### L 100.0100, L3890.6100, L3890.6005, L509.8000, L509.4005, BTS, L3890.6300 #### [facility] [address] [place], [address] Eosinophils/100 WBC (Bld) 1.6 % Normal 0-5 [facility] Comment on above: Performed By: #### L 100.0100, L3890.6100, L3890.6005, L509.8000, L509.4005, BTS, L3890.6300 #### [facility] [address] [place], [address] Erythrocyte distribution width (RBC) [Ratio] 14.0 % Normal 11.6-14.6 [facility] Comment on above: Performed By: #### L 100.0100, L3890.6100, L3890.6005, L509.8000, L509.4005, BTS, L3890.6300 #### [facility] [address] [place], [address] Hematocrit (Bld) [Volume fraction] 35.6 % Low 37-47 [facility] Comment on above: Performed By: #### L 100.0100, L3890.6100, L3890.6005, L509.8000, L509.4005, BTS, L3890.6300 #### [facility] [address] [place], [address] Hemoglobin (Bld) [Mass/Vol] 11.5 g/dL Low 12.0-15.0 [facility] Comment on above: Performed By: #### L 100.0100, L3890.6100, L3890.6005, L509.8000, L509.4005, BTS, L3890.6300 #### [facility] [address] [place], [address] IG% 0.200 Normal 0.0-0.9 [facility] Comment on above: Result Comment: IG% - Immature Granulocytes (promyelocytes, myelocytes and metamyelocytes) > 1% indicates that a LEFT SHIFT is Present. Performed By: #### L 100.0100, L3890.6100, L3890.6005, L509.8000, L509.4005, BTS, L3890.6300 #### [facility] [address] [place], [address] Lymphocytes/100 WBC (Bld) 17.5 % Low 19-41 [facility] Comment on above: Performed By: #### L 100.0100, L3890.6100, L3890.6005, L509.8000, L509.4005, BTS, L3890.6300 #### [facility] [address] [place], [address] MCH (RBC) [Entitic mass] 29.3 pg Normal 27.0-32.0 [facility] Comment on above: Performed By: #### L 100.0100, L3890.6100, L3890.6005, L509.8000, L509.4005, BTS, L3890.6300 #### [facility] [address] [place], [address] MCHC (RBC) [Mass/Vol] 32.3 g/dL Normal 32-36 [facility] Comment on above: Performed By: #### L 100.0100, L3890.6100, L3890.6005, L509.8000, L509.4005, BTS, L3890.6300 #### [facility] [address] [place], [address] MCV (RBC) [Entitic vol] 90.8 fL Normal 81-99 [facility] Comment on above: Performed By: #### L 100.0100, L3890.6100, L3890.6005, L509.8000, L509.4005, BTS, L3890.6300 #### [facility] [address] [place], [address] Monocytes/100 WBC (Bld) 6.8 % Normal 0-10 [facility] Comment on above: Performed By: #### L 100.0100, L3890.6100, L3890.6005, L509.8000, L509.4005, BTS, L3890.6300 #### [facility] [address] [place], [address] Neutrophils/100 WBC (Bld) 73.5 % High 47-70 [facility] Comment on above: Performed By: #### L 100.0100, L3890.6100, L3890.6005, L509.8000, L509.4005, BTS, L3890.6300 #### [facility] [address] [place], [address] Nucleated RBC (Bld) [#/Vol] 0 10*3/uL Normal 0-5 [facility] Comment on above: Performed By: #### L 100.0100, L3890.6100, L3890.6005, L509.8000, L509.4005, BTS, L3890.6300 #### [facility] [address] [place], [address] Platelet mean volume (Bld) [Entitic vol] 10.1 fL Normal 6.2-12.0 [facility] Comment on above: Performed By: #### L 100.0100, L3890.6100, L3890.6005, L509.8000, L509.4005, BTS, L3890.6300 #### [facility] [address] [place], [address] Platelets (Bld) [#/Vol] 231 10*3/uL Normal 150-450 [facility] Comment on above: Performed By: #### L 100.0100, L3890.6100, L3890.6005, L509.8000, L509.4005, BTS, L3890.6300 #### [facility] [address] [place], [address] RBC (Bld) [#/Vol] 3.92 10*6/uL Low 4.2-5.4 [facility] Comment on above: Performed By: #### L 100.0100, L3890.6100, L3890.6005, L509.8000, L509.4005, BTS, L3890.6300 #### [facility] [address] [place], [address] RDW SD 46.3 fl High 35.1-43.9 [facility] Comment on above: Performed By: #### L 100.0100, L3890.6100, L3890.6005, L509.8000, L509.4005, BTS, L3890.6300 #### [facility] [address] [place], [address] WBC (Bld) [#/Vol] 9.3 10*3/uL Normal 4.4-11.0 [facility] Comment on above: Performed By: #### L 100.0100, L3890.6100, L3890.6005, L509.8000, L509.4005, BTS, L3890.6300 #### [facility] [address] [place], [place], [address] HIV - WCHon 06-17-2024 HIV Non-Reactive Normal Nonreactive [facility] Comment on above: Order Comment: Reaso n for Exam: Performed By: #### L 100.0100, L3890.6100, L3890.6005, L509.8000, L509.4005, BTS, L3890.6300 #### [facility] [address] [place], [address] Hepatitis B Surface Antigeno n 06-17-2024 HEP B Surf Ag Non-Reactive Normal Nonreactive [facility] Comment on above: Order Comment: Reaso n for Exam: Performed By: #### L 100.0100, L3890.6100, L3890.6005, L509.8000, L509.4005, BTS, L3890.6300 #### [facility] [address] [facility] [place], [place], [address] Hepatitis C Antibodyon 06-17 Hepatitis C AB [facility]-Reactive [facility] Comment on above: Order Comment: Reaso n for Exam: Result Comment: Non Reactive: < 0.8 Equivocal: >/= 0.8 to < 1.0 Reactive: >/= 1.0 The CDC requires that a reactive/equivocal HCV antibody result be sent out for confirmation. HCV Quant by PCR testing. Performed By: #### L 100.0100, L3890.6100, L3890.6005, L509.8000, L509.4005, BTS, L3890.6300 #### [facility] [address] [place], [address] L509.8000on 06-17-2024 Syphilis Abs Non-Reactive Normal [facility] Comment on above: Order Comment: Reaso n for Exam: Performed By: #### L 100.0100, L3890.6100, L3890.6005, L509.8000, L509.4005, BTS, L3890.6300 #### [facility] [place], [address] Dopster Office Visit Reporton 06-17-2024 Dopster Office Visit Report [facility] [address], [address] [place] [address] OFFICE VISIT Date of Service: 06/17/24 MR#: [id number] Acct: [id number] Name: CALLUM CABALLERO Rep #: [id number] : 1995 Provider: Dr. Ellie Kwan DO Age/Sex: 29/F [place] [facility] [place] Status: Signed Intake Vital Signs 06/17/24 10:23 Height 5 ft 6 in Weight: 152 lb 8 oz BMI 24.6 BP 125/65 H Intake Visit Reasons: NEW 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 Required: No Is patient in pain?: No Allergies No Known Allergies Allergy (Verified 06/17/24 10:19) Medications ???Medication ???Instructions ???Recorded ???Confirmed ???Type multivit-min no.71-iron fum 28 cap PO 06/07/24 06/17/24 History mg-folate no.1 1 mg-dha 300 mg capsule (PNV-[place]) Last Menstrual Period: 04/02/24 Zika: Zika virus [...] physical activity do you participate in: none jacob/rastafari: Yazdanism seatbelt use: always do you feel safe at home: Yes 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 Normal [facility] Rubella IgGon 06-17-2024 Rubella IgG Non-Reactive Normal Nonreactive [facility] Comment on above: Order Comment: Reaso n for Exam: Result Comment: Anti body Results Interpretation of Immune Status Non Reactive Presumed Non-Immune Equivocal Equivocal Reactive Presumed Immune Performed By: #### L 100.0100, L3890.6100, L3890.6005, L509.8000, L509.4005, BTS, L3890.6300 #### [facility] [address] [place], [address] Type AND Screenon 06-17-2024 ABO and Rh group Nom (Bld) Blood group A Rh(D) positive Normal [facility] Comment on above: Order Comment: PN Performed By: #### L 100.0100, L3890.6100, L3890.6005, L509.8000, L509.4005, BTS, L3890.6300 #### [facility] [address] [place], [address] Vital Signs Date Time Vital Sign Value Performing Clinician Faci lity 12-26-2024 12:50-0400 Body height 167.64 cm No Primary Care Physician [facility] 12-26-2024 12:50-0400 Body mass index (BMI) [Ratio] 28.3 kg/m2 No Primary Care Physician [facility] 12-26-2024 12:50-0400 Body weight 79.49 kg No Primary Care Physician [facility] 12-26-2024 12:50-0400 Diastolic blood pressure 78 mm[Hg] No Primary Care Physician [facility] 12-26-2024 12:50-0400 Systolic blood pressure 120 mm[Hg] No Primary Care Physician [facility] 12-20-2024 13:52-0400 Body height 167.64 cm Kya Stapleton CNM Work Phone: [facility] 12-20-2024 13:52-0400 Body mass index (BMI) [Ratio] 28.4 kg/m2 Kya Stapleton CNM Work Phone: [facility] 12-20-2024 13:52-0400 Body weight 80 kg Kya Stapleton CNM Work Phone: [facility] 12-20-2024 13:52-0400 Diastolic blood pressure 74 mm[Hg] Kya Stapleton CNM Work Phone: [facility] 12-20-2024 13:52-0400 Systolic blood pressure 116 mm[Hg] Kya Stapleton CNM Work Phone: [facility] 12-06-2024 14:37-0400 Body mass index (BMI) [Ratio] 27.9 kg/m2 Kya Stapleton CNM Work Phone: [facility] 12-06-2024 14:37-0400 Body weight 78.58 kg Kya Stapleton CNM Work Phone: [facility] 12-06-2024 14:37-0400 Diastolic blood pressure 82 mm[Hg] Kya Stapleton CNM Work Phone: [facility] 12-06-2024 14:37-0400 Systolic blood pressure 127 mm[Hg] Kya Stapleton CNM Work Phone: [facility] 11-11-2024 10:49-0400 Body mass index (BMI) [Ratio] 27.1 kg/m2 Kya Stapleton CNM Work Phone: [facility] 11-11-2024 10:49-0400 Body weight 76.43 kg Kya Stapleton CNM Work Phone: [facility] 11-11-2024 10:49-0400 Diastolic blood pressure 69 mm[Hg] Kya Stapleton CNM Work Phone: [facility] 11-11-2024 10:49-0400 Systolic blood pressure 105 mm[Hg] Kya Stapleton CNM Work Phone: [facility] 10-25-2024 15:02-0400 Body mass index (BMI) [Ratio] 26.9 kg/m2 Kya Stapleton CNM Work Phone: [facility] 10-25-2024 15:02-0400 Body weight 75.86 kg Kya Stapleton CNM Work Phone: [facility] 10-25-2024 15:02-0400 Diastolic blood pressure 78 mm[Hg] Kya Stapleton CNM Work Phone: [facility] 10-25-2024 15:02-0400 Systolic blood pressure 117 mm[Hg] Kya Stapleton CNM Work Phone: [facility] 10-11-2024 13:11-0400 Body height 167.64 cm Kya Stapleton CNM Work Phone: [facility] 10-11-2024 13:11-0400 Body mass index (BMI) [Ratio] 26.1 kg/m2 Kya Stapleton CNM Work Phone: [facility] 10-11-2024 13:11-0400 Body weight 73.48 kg Kya Stapleton CNM Work Phone: [facility] 10-11-2024 13:11-0400 Diastolic blood pressure 66 mm[Hg] Kya Stapleton CNM Work Phone: [facility] 10-11-2024 13:11-0400 Systolic blood pressure 108 mm[Hg] Kya Stapleton CNM Work Phone: [facility] 09-13-2024 13:49-0500 Body mass index (BMI) [Ratio] 26.8 kg/m2 Kya Stapleton CNM Work Phone: [facility] 09-13-2024 13:49-0500 Body weight 75.29 kg Kya Stapleton CNM Work Phone: [facility] 09-13-2024 13:49-0500 Diastolic blood pressure 69 mm[Hg] Kya Stapleton CNM Work Phone: [facility] 09-13-2024 13:49-0500 Systolic blood pressure 114 mm[Hg] Kya Stapleton CNM Work Phone: [facility] 08-16-2024 14:46-0500 Body mass index (BMI) [Ratio] 25.5 kg/m2 Kya Stapleton CNM Work Phone: [facility] 08-16-2024 14:46-0500 Body weight 71.78 kg Kya Stapleton CNM Work Phone: [facility] 08-16-2024 14:46-0500 Diastolic blood pressure 64 mm[Hg] Kya Stapleton CNM Work Phone: [facility] 08-16-2024 14:46-0500 Systolic blood pressure 107 mm[Hg] Kya Stapleton CNM Work Phone: [facility] 07-22-2024 08:42-0500 Body mass index (BMI) [Ratio] 25.2 kg/m2 Kya Stapleton CNM Work Phone: [facility] 07-22-2024 08:42-0500 Body weight 70.76 kg Kya Stapleton CNM Work Phone: [facility] 07-22-2024 08:42-0500 Diastolic blood pressure 57 mm[Hg] Kya Stapleton CNM Work Phone: [facility] 07-22-2024 08:42-0500 Systolic blood pressure 108 mm[Hg] Kya Stapleton CNM Work Phone: [facility] Encounters Encounter Date Encounter Type Care Provider Facility Start: 12-26-2024 End: 12-26-2024 [facility] Start: 12-26-2024 End: 12-26-2024 ambulatory No Primary Care Physician [facility] Work Phone: Start: 12-20-2024 End: 12-20-2024 ambulatory No Primary Care Physician [facility] Work Phone: Start: 12-20-2024 End: 12-20-2024 Patient encounter procedure Jill Sethi CNM -[facility] Work Phone: Start: 12-20-2024 End: 12-20-2024 Patient encounter procedure [facility] Work Phone: Start: 12-20-2024 End: 12-20-2024 ambulatory Kya Stapleton CNM Work Phone: [facility] Work Phone: Start: 12-20-2024 End: 12-20-2024 ambulatory Jill Sethi Facility:[facility] Start: 12-06-2024 End: 12-06-2024 Patient encounter procedure [facility] Work Phone[facility] Start: 12-06-2024 End: 12-06-2024 ambulatory Kya Stapleton Facility:[facility] Start: 11-11-2024 End: 11-11-[address] Ellie Rod[facility] Work Phone: Start: 11-11-2024 End: 11-11-2024 ambulatory Ellie Rodríguez Facility:[facility] Start: 10-25-2024 End: 10-25-[address] E[facility] Work Phone: Start: 10-25-2024 End: 10-25-2024 ambulatory Evelia Catalan Facility:[facility] Start: 10-11-2024 End: 10-11-2024 Patient encounter procedure Sheryl Kern [employer] ARCHIT[employer]-C [facility] Work Phone: Start: 10-11-2024 End: 10-11-2024 ambulatory Kya Stapleton CNM Work Phone: [facility] Work Phone: Start: 10-11-2024 End: 10-11-2024 ambulatory No Primary Care Physician Facility:[facility] Start: 09-13-2024 End: 09-13-2024 Patient encounter procedure Kya Stapleton CNM [facility] Work Phone: Start: 09-13-2024 End: 09-13-2024 ambulatory No Primary Care Physician Facility:[facility] Start: 08-23-2024 End: 08-23-2024 Patient encounter procedure Kya Stapleton CNM -[facility], [place], [facility] Work Phone: Start: 08-23-2024 End: 08-23-2024 ambulatory No Primary Care Physician Facility:[facility] Start: 08-16-2024 End: 08-16-[address] [facility]an [facility] Work Phone: Start: 08-16-2024 End: 08-16-2024 ambulatory Evelia Catalan Facility:[facility] Start: 07-22-2024 End: 07-22-2024 Patient encounter procedure Kya Stapleton CNM [facility] Work Phone: Start: 07-22-2024 End: 07-22-2024 ambulatory Kya Stapleton [facility] Start: 06-17-2024 End: 06-17-2024 ambulatory Elliefrancine Riggins Prasanth Facility:[facility] Start: 06-17-2024 End: 06-17-2024 [facility] Procedures Date Procedure Procedure Detail Performing Clinician [...] of Treatment Date Care Activity Detail Author [facility] Payers Date Payer Category Payer Unknown [id number] 2024 Unknown [id number] 2024 Self-pay Unknown [id number] 2.16.8 [id number] Unknown [id number] 2.16.8 [id number] Unknown [id number] 2.16.8 [id number] Unknown [id number] 2.16.8 [id number] Unknown [id number] 2.16.8 [id number] Unknown [id number] 2.16.8 [id number] Unknown [id number] 2.16.8 [id number] Unknown [id number] 2.16.8 [id number] Unknown [id number] 2.16.8 [id number] Unknown [id number] 2.16.8 [id number] Unknown [id number] 2.16.8 [id number] Unknown [id number] 2.16.8 [id number] Unknown [id number] 2.16.8 [id number] Unknown [id number] 2.16.8 [id number] Social History Date Type Detail Facility Start: 06-07-2024 Tobacco smoking stat [facility] Never smoked tobacco (finding) [facility] Start: 10-16-2024 Sex Female (finding) [facility] Start: 1995 Sex Assigned At Female [facility] Progress note 12-20-2024 Note Date & Type Note Facility 12-20-2024 Progress note [facility] Progress note 12-20-2024 Note Date & Type Note Facility 12-20-2024 Progress note Note Date/Time December 20, 2024 2:47p m [facility] [address], [address] [place] [address] OFFICE VISIT Date of Service: 12/20/24 MR#: [id number] Acct: [id number] Name: CALLUM CABALLERO Rep #: [id number] : 1995 Provider: DYLON Sethi Age/Sex: 29/F [place] [facility] Status: Signed Intake Vital Signs 07/22/24 08:44 12/06/24 14:37 12/20/24 13:52 Height 5 ft 6 in 5 ft 6 in 5 ft 6 in Weight: 176 lb 6 oz BMI 28.4 BP 116/74 Intake Visit Reasons: 37 WK 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 Required: No Is patient in pain?: No Allergies No Known Allergies Allergy (Verified 12/20/24 13:55) Medications ?Medication ?Instructions ?Recorded ?Confirmed ?Type multivit-min no.71-iron fum 28 cap PO 06/07/24 5 History mg-folate no.1 1 mg-dha 300 mg capsule (PNV-[place]) Last Menstrual Period: 04/02/24 Zika: Zika virus [...] physical activity do you participate in: none jacob/rastafari: Yazdanism seatbelt use: always do you feel safe at home: Yes additional social history: - 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 G ood Fm. 28 wk labs, [facility] 10/25/24 -?-?-?-?-?-?-?-?-?-?-?-?- 29w 3d 167 lb 4 [...] trimester Comment: PRR, , GAMAL 01/07/25, boy Yazdanism (3) : Status: Acute Qualifiers: Weeks of [...] this visit. GA appropriate handout given. 12/20/24 [id number] <Electronically signed by Jill brandt CNM> Date _ Jill Sethi CNM Cosigner Signature: Date (if applicable) CC: ~ [facility] Work Phone: Evaluation note 09-13-2024 Note Date [...] first acute December 20, 2024 1 :50pm [facility] Work Phone: Evaluation note 09-13-2024 [...] normal first acute December 26, 2024 12:43pm [facility] Work Phone: Evaluation note 07-22-2024 Note Date [...] varicella, non-immune resolved October 11, 2024 12:58pm [facility] Work Phone: Reason for referral (narrative) Note Date & Type Note Facility Reason for referral (narrative) No reason for referral information available [facility] Work Phone: Chief Complaint and Reason for [...] 2024 2 :42pm Supervision of normal first [facility] 2024 2:42pm Maternal varicella, non-immune July 192024 2:42pm Infertility August 16, 2024 2 :42pm September 13, 2024 1:44pm Supervision of normal first [facility] 2024 1:44pm Maternal varicella, non-immune September 13, 2024 1:44pm Infertility September 13, 2024 1:44pm October 11, 2024 12: 58pm Rubella non-immune status, antepartum [facility] 2024 12:58pm Supervision of normal first [facility] 2024 12:58pm Maternal varicella, non-immune September [...] 13, 2024 1:44pm Supervision of normal first [facility] 2024 1:44pm Maternal varicella, non-immune September 13, 2024 1:44pm Infertility September 13, 2024 1:44pm October 11, 2024 12: 58pm Rubella non-immune status, antepartum [facility] 2024 12:58pm Supervision of normal first [facility] 2024 12:58pm Maternal varicella, non-immune September [...] 12: 58pm Rubella non-immune status, antepartum [facility] 2024 12:58pm Supervision of normal first [facility] 2024 12:58pm Maternal varicella, non-immune September 12:58pm [...] 2024 1:50p m Rubella non-immune status, antepartum [facility] 2024 1:50pm Supervision of normal first [facility] 2024 1:50pm December 26, 2024 12:4 3pm Rubella non-immune status, antepartum [facility] 2024 12:43pm Supervision of normal first [facility] 2024 12:43pm Family History No Family History [...] Member Role Status Dates Sheryl Kern NP, [employer] INTEGRATION ARCHITECT-C Attending Provider Active Start: December 26, 2024 [...] section and content) DATE CREATED AUTHOR 12/28/2024 [facility] FOR RECORDS PERTAINING TO PATIENTS WHO [...] BE BASED ON THE PRIMARY CLINICAL RECORDS. [employer] provides no warranty or guarantee of the accuracy or completeness of information in this document.
[2024-12-29] MEDS: Azithromycin 500 MG in 0.9% Normal Saline (250mL Bag) 250 ML 250 MG IV (20:30)
[2024-12-29] MEDS: Oxytocin 15 Units/NS 250ml 15 UNITS/250 ML IV.SOLN 83 UNITS IV (20:31)
--- NOTE | 2024-12-29 20:38 | DCINST_ITS ---
Discharge Instructions Diet Discharge Diet: No restrictions DC O2, CPAP, BIPAP needs Home O2 Discharge instructions: No Dressing / Incision Discharge Activity: May Not Drive (for 2 weeks or while taking narcotic pain medications.), May Shower and May Take a Tub Bath (in 7 days.) May resume sexual activity in: 4-6 weeks Weight Bearing Status: Full weight bearing Lifting Restrictions: 20 pounds Dressing / Incision Call your doctor if your incision/area has: Continuous Slow Oozing, Sudden Increased Bleeding, Increased Pain/ Swelling, Increased Redness and Foul Smelling Discharge Call your doctor if you observe: Fever of 101 or Higher and Using more than 1 pad per hour Suture Line Care: Avoid Pulling/Pushing and Avoid Pinching/Bending Cleanse incision/area with: Soap & Water and Keep Dressing Clean & Dry Follow Up Care Please Follow Up With: Ellie Rodríguez DO When: Call [phone] to make an appointment for an incision check in 1-2 weeks. Test Results: Test results from this visit will be discussed in further detail at your follow- up appointment, if applicable. Discharge Plan Admission Admit Date/Time: 12/29/24 17:58 Primary Reason for Your Visit: section Attending Provider: Ellie Rodríguez Primary Care Provider: Care PhysicianBere Primary Discharge Orders/Prescriptions Prescriptions: New ibuprofen 800 mg tablet 800 mg PO Q8H PRN (Reason: pain) Qty: 30 0RF oxycodone-acetaminophen [Percocet] 5-325 mg tablet 1 tab PO Q4H PRN (Reason: pain) 7 Days Qty: 20 0RF No Action PNV-Arthur 28-1-300 mg capsule PO Referrals / Follow Up: Care Physician,Bere Primary [Primary Care Provider] - Disposition Disposition (needs filled in before D/C Order can be placed): Home, Self Care
[2024-12-29] MEDS: Ketorolac 30 MG/ML Syringe IV (20:49)
--- NOTE | 2024-12-29 21:35 | NURSING ---
x-ray taken for STAT c/s, unable to do a count before hand
--- NOTE | 2024-12-29 22:05 | NURSING ---
X-ray taken for stat c/s. unable to count beforehand
[2024-12-30] VITALS (7 sets, daily range): BP systolic 102–120; BP diastolic 56–73; PULSE 59–85; RESP 16–18; TEMP 36.7–37.2; O2SAT 97–100
[2024-12-30] MEDS: Ketorolac 30 MG/ML Syringe IV ×3 (02:33→15:06)
[2024-12-30 06:12] LABS: Hematocrit 32.3 % (37-47); Hemoglobin 11.2 g/dL (12.0-15.0); Mean Corp Hgb Conc 34.7 g/dL (32-36); Mean Corpuscular Hgb 31.5 pg (27.0-32.0); Mean Corpuscular Volume 90.7 fL (81-99); Mean Platelet Vol. 10.3 fl (6.2-12.0); Platelet Count 178 K/mm3 (150-450); RBC Distribution Width CV 13.2 % (11.6-14.6); RBC Distribution Width SD 43.7 fl (35.1-43.9); Red Blood Count 3.56 M/mm3 (4.2-5.4); White Blood Count 17.4 K/mm3 (4.4-11.0)
[2024-12-30] MEDS: 0.9% Saline Lock 10 ML Syringe IV ×2 (08:22→15:06)
--- NOTE | 2024-12-30 08:36 | PCM.PN.OB ---
Subjective Subjective Patient doing well without complaints. Tolerating PO. Ambulating and voiding without difficulty. Feeding well. Denies chest pain, shortness of breath, calf pain/swelling, fevers, chills, lightheadedness. Objective Data Objective Data Vital Signs: Vital Signs Temp Pulse Resp BP Pulse Ox O2 Del Method 98.1 F 70 16 105/66 98 Room Air 12/30/24 04:12 12/30/24 04:12 12/30/24 04:12 12/30/24 04:12 12/30/24 04:12 12/30/24 04:12 Oxygen Delivery Method Room Air Weight: 173 lb 4.533 oz Body Mass Index (BMI) 27.9 Intake & Output: Intake and Output for Last 24 Hours 12/28/24 12/29/24 12/30/24 23:59 23:59 23:59 Intake Total 250 / 250 Output Total 1100 / 1100 800 / 800 Balance -850 / -850 -800 / -800 Lab / Micro Data Attestation: I reviewed the patient's lab results. 12/30/24 06:00 Labs: Laboratory Results - last 24 hr 12/29/24 18:06: WBC 11.5 H, RBC 3.90 L, Hgb 12.1, Hct 35.4 L, MCV 90.8, MCH 31.0, MCHC 34.2, RDW Std Deviation 44.2 H, RDW Coeff of Maikel 13.5, Plt Count 201, MPV 10.3, Immature Gran % (Auto) 0.600, Neut % (Auto) 79.8 H, Lymph % (Auto) 11.1 L, [place] % (Auto) 8.0, Eos % (Auto) 0.3, Baso % (Auto) 0.2, Absolute Neuts (auto) 9.2 H, Absolute Lymphs (auto) 1.28, Nucleated RBC % 0, Syphilis Total Ab Nonreactive, Blood Type A POSITIVE, Antibody Screen NEGATIVE 12/30/24 06:00: WBC 17.4 H, RBC 3.56 L, Hgb 11.2 L, Hct 32.3 L, MCV 90.7, MCH 31.5, MCHC 34.7, RDW Std Deviation 43.7, RDW Coeff of Maikel 13.2, Plt Count 178, MPV 10.3 Radiography Diagnostic Testing: Radiology Impression KUB X-Ray 12/29/24 19:55 IMPRESSION: No evidence of radiopaque foreign body. Osseous structures are intact. Small amount of presumed postoperative gas within the pelvis, more so on the right. Reading [facility] Constitutional Constitutional: Reports systems reviewed and no addt'l complaints, except as documented; Denies anorexia or headache(s) Cardiovascular Cardiovascular: Reports systems reviewed and no addt'l complaints, except as documented; Denies dizziness, dyspnea, nausea or tachypnea Respiratory/Chest Respiratory/Chest: Reports systems reviewed and no addt'l complaints, except as documented; Denies cough, dyspnea, shortness of breath at rest or tachypnea Gastrointestinal Gastrointestinal: Reports systems reviewed and no addt'l complaints, except as documented; Denies abdominal pain, constipation or nausea Genitourinary Genitourinary: Reports systems reviewed and no addt'l complaints, except as documented; Denies burning urination, difficulty urinating, dysuria, urinary frequency or urinary incontinence Musculoskeletal Musculoskeletal: Reports systems reviewed and no addt'l complaints, except as documented Integumentary Integumentary: Reports systems reviewed and no addt'l complaints, except as documented Neurologic Neurologic: Reports systems reviewed and no addt'l complaints, except as documented; Denies abnormal speech, dizziness or headache(s) Psychiatric Psychiatric: Reports systems reviewed and no addt'l complaints, except as documented Endocrine Endocrinology: Reports systems reviewed and no addt'l complaints, except as documented Hematologic/Lymphatic Hematologic/Lymphatic: Reports systems reviewed and no addt'l complaints, except as documented Physical Exam Const alert, oriented x3 and no apparent distress Neck full ROM Resp normal respiratory effort, normal air movement and no retractions Effort and Inspection: able to speak in complete sentences and symmetric chest movement GI soft to palpation Inspection: incision intact Bladder / Kidney Exam: bladder normal to palpation Uterus Palpation: uterus fundus firm Extremity normal to inspection and full ROM Psych mental status grossly normal, thought process normal and cooperative Assessment & Plan (1) Status post section: PLAN: s/p LTCS PPD # 1 1. routine post care 2. breast feeding- support given 3. rh positive 4. rubella immune (2) Breech presentation: COMMENT: cs jv (3) Spontaneous onset of labor: COMMENT: active labor at 9cm with bulging bag of fluid (4) Rubella non-immune status, antepartum: COMMENT: offer mmr pp (5) Supervision of normal first : QUALIFIERS: Trimester: third trimester Qualified Code(s): Z34.03 - Encounter for supervision of normal first , third trimester COMMENT: PRR, , GAMAL 01/07/25, boy Faith (6) : QUALIFIERS: Weeks of gestation: 37 weeks Qualified Code(s): Z3A.37 - 37 weeks gestation of COMMENT: gbs neg. declined NIPT & Carrier testing, afp declined. normal anatomy Charges/Coding Multi Select Codes Urinary/Genital Urinary/Genital CPT Codes: No Charge
[2024-12-30] MEDS: Senna/Docusate Sodium 1 Tablet PO (15:05)
[2024-12-30] MEDS: Acetaminophen 500 MG Tablet 1000 MG PO (21:00)
[2024-12-30] MEDS: Ibuprofen 600 MG Tablet PO (21:00)
[2024-12-31 02:55] VITALS: BP 101/63; PULSE 62; RESP 14; TEMP 36.6; O2SAT 98
[2024-12-31] MEDS: Acetaminophen 500 MG Tablet 1000 MG PO (04:24)
[2024-12-31] MEDS: Ibuprofen 600 MG Tablet PO (04:25)
[2024-12-31 07:55] VITALS: BP 111/67; PULSE 57; RESP 17; O2SAT 98
--- NOTE | 2024-12-31 08:54 | PN.OBGYN_ITS ---
Subjective Subjective Patient is laying in bed comfortably without complaints. She states that she slept on an off during the night. Lochia is mild and pain is minimal. She would like to be discharged to home. Objective Data Objective Data Vital Signs: Vital Signs Temp Pulse Resp BP Pulse Ox O2 Del Method 97.9 F 57 L 17 111/67 98 Room Air 12/31/24 02:55 12/31/24 07:55 12/31/24 07:55 12/31/24 07:55 12/31/24 07:55 12/31/24 07:55 Oxygen Delivery Method Room Air Weight: 173 lb 4.533 oz Body Mass Index (BMI) 27.9 Intake & Output: Intake and Output for Last 24 Hours 12/29/24 12/30/24 12/31/24 23:59 23:59 23:59 Intake Total 250 / 250 Output Total 1100 / 1100 2300 / 2300 Balance -850 / -850 -2300 / -2300 Lab / Micro Data 12/30/24 06:00 ROS Constitutional Constitutional: Reports systems reviewed and no addt'l complaints, except as documented Cardiovascular Cardiovascular: Denies chest pain, dizziness, dyspnea or irregular heart rhythm Respiratory/Chest Respiratory/Chest: Denies cough, pain on inspiration or shortness of breath at rest Gastrointestinal Gastrointestinal: Denies abdominal pain, nausea or vomiting Genitourinary Genitourinary: Denies burning urination Musculoskeletal Musculoskeletal: Denies muscle cramps, muscle spasms or muscle weakness Neurologic Neurologic: Denies confusion, dizziness, headache(s) or lack of coordination Psychiatric Psychiatric: Denies anxiety, behavioral changes or depression Physical Exam HEENT normocephalic Resp normal respiratory effort and normal air movement GI soft to palpation, non-tender and non-distended Rectal Exam: other Other Details: Incision is clean, dry, and intact no CVA tenderness Extremity normal to inspection General Extremity: edema bilateral (trace ) Assessment & Plan (1) Status post section: (2) Breech presentation: COMMENT: cs jv (3) Spontaneous onset of labor: COMMENT: active labor at 9cm with bulging bag of fluid (4) Rubella non-immune status, antepartum: COMMENT: offer mmr pp (5) Supervision of normal first : QUALIFIERS: Trimester: third trimester Qualified Code(s): Z34.03 - Encounter for supervision of normal first , third trimester COMMENT: PRR, , GAMAL 01/07/25, boy Religious (6) : QUALIFIERS: Weeks of gestation: 37 weeks Qualified Code(s): Z 3A.37 - 37 weeks gestation of COMMENT: gbs neg. declined NIPT & Carrier testing, afp declined. normal anatomy PLAN: Plan s/p LTCS PPD # 2 1. routine post care 2. breast feeding- support given 3. rh positive 4. rubella immune 5. ok to dc to home
== END 2024-12-31 10:39 | disposition home or self-care (01) | DRG 788 ==
LOC: WPOUT 17:59 → WP 19:34
PROVIDERS: Registered Nurse; Admitting Provider Obstetrics & Gynecology; Referring Provider Obstetrics & Gynecology; Visit Provider Obstetrics & Gynecology
DX: O32.8XX0 Maternal care for other malpresentation of fetus, not applicable or unspecified (principal); Z37.0 Single live birth; Z3A.37 37 weeks gestation of pregnancy
CPT/HCPCS: 59025; 59050; 74018; 85025; 85027; 86780; 86850; 86900; 86901; 99221; A4216; G0378; J2405